=== PATIENT | female | born 1950 | race Caucasian/White ===

== ENCOUNTER 2019-10-06 07:32 | Outpatient (RCR) | payer MEDICARE, SELFPAY | END 2019-10-28 23:59 | disposition home or self-care (01) | LOC: SPT 07:32 | PROVIDERS: Family Provider Nurse Practitioner Family; PCP Nurse Practitioner Family; Referring Provider Nurse Practitioner Family; Visit Provider Nurse Practitioner Family | DX: R26.81 Unsteadiness on feet (principal); R29.6 Repeated falls | CPT/HCPCS: 97161 ==

== ENCOUNTER 2019-10-29 06:00 | Outpatient (RCR) | payer MEDICARE, SELFPAY | END 2019-10-29 23:00 | disposition home or self-care (01) | LOC: SPT 06:00 | PROVIDERS: Family Provider Nurse Practitioner Family; PCP Nurse Practitioner Family; Referring Provider Nurse Practitioner Family; Visit Provider Nurse Practitioner Family | DX: R26.81 Unsteadiness on feet (principal); R29.6 Repeated falls ==

== ENCOUNTER 2019-11-14 10:03 | Outpatient (CLI) | payer MEDICARE, SELFPAY ==
[2019-11-14 10:35] LABS: Basophils # 0.1 10^3/uL (0.0-0.1); Basophils % 0.8 %; Eosinophils # 0.1 10^3/uL (0.0-0.8); Eosinophils % 1.4 %; Hematocrit 43.6 % (37.0-47.0); Hemoglobin 13.9 g/dL (11.5-15.3); Lymphocytes # 2.3 10^3/uL (0.8-4.8); Lymphocytes % 31.6 %; Mean Corpuscular HGB Conc 31.9 g/dL (30.0-36.0); Mean Corpuscular Hemoglobin 28.3 pg (28.0-34.0); Mean Corpuscular Volume 88.8 fL (81-99); Mean Platelet Volume 10.1 fL (7.4-10.4); Monocytes # 0.6 10^3/uL (0.2-0.9); Monocytes % 7.9 %; Neutrophils # 4.1 10^3/uL (1.8-7.7); Neutrophils % 57.6 %; Nucleated Red Blood Cells % 0 %; Platelet Count 259 10^3/cmm (130-400); Red Blood Count 4.91 10^6/uL (4.1-5.3); Red Cell Distribution Width 12.9 % (12.1-15.1); White Blood Count 7.2 10^3/uL (4.0-10.0)
[2019-11-14 10:54] LABS: Alanine Aminotransferase 12 U/L (0-33); Albumin Level 3.7 g/dL (3.5-5.2); Alkaline Phosphatase 131 IU/L (35-105); Aspartate Amino Transferase 17 U/L (0-32); Blood Urea Nitrogen 14 mg/dL (8-23); Calcium 9.6 mg/dL (8.5-10.5); Carbon Dioxide 28 mmol/L (22-29); Chloride 101 mmol/L (98-107); Ferritin 467 ng/mL (15-150); Globulin 3.7 g/dL (1.3-4.6); Glomerular Filtration Rate 83.5 mL/min (90-130); Glucose 117 mg/dL (65-115); Iron 125 ug/dL (37-145); Percent Saturation 54.8 % (20-50); Sodium 139 mmol/L (136-145); Total Bilirubin 0.4 mg/dL (0.15-1.2); Total Iron Binding Capacity 228 mcg/dl; Total Protein 7.4 g/dL (6.6-8.7); Unsaturated Iron Binding 103 ug/dL (112-347)
[2019-11-14 11:04] LABS: Thyroid Stimulating Hormone 8.56 uIU/mL (0.27-4.20)
[2019-11-14 11:20] LABS: Erythrocyte Sedimentation Rate 18 mm/hr (0-15)
--- NOTE | 2019-11-14 12:19 | ONC FU_ITS ---
Dr. Resendez Patient Follow-Up Note Patient: Steffanie Angelo Unit #: [id number]: 1950 Dicatated By: Hal Resendez M.D.Date of Visit:Nov 14, 2019 Onc Med Follow-up/Prog Note Chief Complaint: Anemia. History of Present Illness: This is a 69 year-old woman with recurrent iron deficiency anemia. She has a complex medical history including diabetes, coronary artery disease, and hypothyroidism. 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 She has undergone multiple surgeries, and she is followed by Dr. Hong in the [place], [place]. She also has a history of cervical dysplasia, for which she is followed by Dr. White in [place], [place]. She was known to have an iron deficiency anemia since at least January of 2014 when her hemoglobin was 9.3 g/dL, ferritin 16.8, MCV 75. She reported frequent hematuria. On 10/09/2014 she was admitted to [facility] with syncopal episode and hypotension. Her hemoglobin measured 8.1 g/dL, MCV further dropped to 61, ferritin 6.9. Aspirin was placed on hold. She received one unit of packed red blood cell transfusion. She was first seen by Dr. Barrientos on 10/13/14. Her hemoglobin was 8.1 g with ESR 56. She denied clinically evident bleeding, except occasional hematuria. She had an intermittent left periumbilical pain. She had chronic fatigue and dyspnea on exertion. With IV iron replacement, her ferritin increased to 230, but iron saturation was 10%, and her hemoglobin recovered to 9.8 g/dL only. Hemoccult stool negative x3. A restaging CT of the chest abdomen and pelvis on 10/23/2014 revealed hiatal hernia, increased lymph node in the left axilla with a normal fatty hilum, and a right adnexal dermoid versus teratoma, which was stable. There was no organomegaly. Further workup included endoscopy and colonoscopy on 11/02/2014. It revealed hiatal hernia, gastritis, and diverticulosis. Urinalysis had persistent microscopic hematuria, cystoscopy unrevealing in June [address] Palomo. Bone marrow biopsy on 11/01/2014 showed 40-50% cellularity with that limited dyspoiesis of RBC precursors. There was adequate iron storage storage with ring sideroblasts of less than 5%. Cytogenetics and flow cytometry was unremarkable. FISH panel for MDS was normal. She intermittently required IV iron supplementation. With the treatment of left elbow osteomyelitis on doxycycline, the hemoglobin recovered to 12 g/dL on 12/05/2014. 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 She was then seen by infectious diseases specialist, completed a course of antibiotics in April 2015. Her last injections of IV iron was in May 2015. Bone scan in October 2015 revealed persistent osteomyelitis in the left elbow. She required debridement surgery on 01/11/2016 followed by chronic vancomycin therapy IV for MRSA. Unfortunately patient came off her omeprazole therapy for chronic gastritis. In early January 2016 she presented to the hospital with upper GI bleed, gastritis by endoscopy. She required 4 units of PRBC transfusion, omeprazole and Carafate therapy was restarted. She had repeat left elbow surgery on 03/14/2016. She was given parenteral iron replacement with Injectafer in November 2015 and again in February 2016. I had seen her for a follow-up visit in April 2016. Her hemoglobin was adequate at 12.8 g with transferrin saturation 30% and serum ferritin elevated at 754 ng/mL. At that point I had recommended that she just continue her regular follow-up with Myrna Tovar. INTERIM HISTORY: She had subsequently been followed by Dr. Roach for the anemia, and she did receive 2 additional infusions of Injectafer in November 2016. As of September 2018 she had become moderately anemic again with hemoglobin 9.4 g. She eventually did receive additional parenteral iron replacement with 3 infusions of Injectafer between 03/16/2019 and 03/30/2019. As of her followup visit on 05/11/2019 her hemoglobin was normal at 13.6 g. She is seen for a scheduled visit. She has been feeling pretty good generally. She says could be better, though it is better now than it had been. She is doing light work. ECOG score is 1. She has good appetite. She has not had fever. She does have hot flashes and sweating. She complains that she has bad sinus congestion, and she is wondering if she can get her sinuses drained. She also has had pain on the right side of her throat, and she also feels a knot there. She has shortness of breath with activity. She is on CPAP at night. She does not complain of cough. She sometimes has pain in her upper mid chest. She has acid reflux, and she occasionally has nausea. Bowel function has been okay. She has some urgency with urination, but no incontinence. She was treated for gout in her left ankle, and she then developed pain in her left knee. It was treated with a steroid shot. She has chronic pain in her left arm. She also has fibromyalgia pain in her shoulders. She complains of having headaches and dizziness. She has numbness/tingling in her left arm. Medications: Atenolol 1 (25 mg) Tablet Oral daily, Atorvastatin Calcium 1 (80 mg) Tablet Oral daily, Citalopram Hydrobromide 1 (40 mg) Tablet Oral daily, Doxycycline Hyclate Tablet Oral, Gabapentin 1 Tablet (of 300 mg) Oral four times a day, Hydrocodone-Acetaminophen 1 - 2 (7.5-325 mg) Tablet Oral q 4 to 6 hours PRN, Levothyroxine Sodium 1 Tablet (of 100 mcg) Oral daily, Plavix 1 (75 mg) Tablet Oral daily, Probiotic 1 Capsule Oral daily, Protonix 1 Tablet (of 20 mg) Tablet, enteric coated Oral b.i.d., Vitamin B-12 1 Tablet (of 2500 mcg) Oral daily Allergies: Dilautid, Keflex, Morphine, N-Saids, PCN, and Sulfa Drugs. Review of Systems: Constitutional - Her energy has gotten better. She does light work and baby sits her grandchildren. Her appetite is good and her weight is down 4 pounds since her last visit. No fever or chills. She has hot flashes and sweating. ECOG score is 1, ENMT - She has bad sinus congestion. No mouth sores. She has been having pain and a knot on the right side of her throat. She has no difficulty swallowing, Hematologic/Lymphatic - She bruises easily, Respiratory - She has shortness of breath with activity. She wears a CPAP at night. No cough. No pleuritic pain or hemoptysis, Cardiovascular - She has pain in the center of her upper chest. No palpitations, Gastrointestinal - She has occasional nausea. No vomiting. She has heartburn and acid reflux. No diarrhea or constipation. No blood in the stool or black stools, Genitourinary (F) - No dysuria or hematuria. No urinary frequency. She has urgency, but no incontinence, Musculoskeletal - She was treated for gout in the left ankle. She then developed pain in her left knee and ankle. She was treated with a steroid shot. She also has pain chronic pain in her left arm, and she has fibromyalgia pain in her shoulders, Integumentary - No skin complications, Neurologic - No headache. She has occasional dizziness. She has numbness and tingling in her left hand, Psychiatric - She has anxiety. She sleeps okay at night as long as she takes her medication. Vital Signs: Performed on Nov 14, 2019 11:26 Height - 64.00 in Weight - 173.8 lbs (LOW) BSA - 1.84 sq.m BMI - 29.83 Temperature - 98.1 F (LOW) Pulse - 86 /min Respiration - 18 /min BP - 136/81 mm(hg) O2 Sat - 98 % Pain - 4 Physical Examination: Constitutional - She looks pretty good generally, Eyes - Sclerae nonicteric. Conjunctivae clear, ENMT - No lesions noted in the oral cavity, Hematologic/Lymphatic - No cervical, clavicular, or axillary adenopathy, Respiratory - Lungs sound clear with good air movement bilaterally, Cardiovascular - Heart rhythm is regular. There is no murmur, gallop, or rub noted, Abdomen - Soft. Liver and spleen are not enlarged. There is no abdominal mass or ascites noted and there is no inguinal adenopathy, Extremities - No edema, Neurologic - No focal neurologic deficits noted. Lab/Imaging: Test performed on Nov 14, 2019 10:18 Ferritin 467 ng/mL Iron 125 ug/dL Sodium 139 mmol/L TSH 8.56 uIU/mL Potassium 4.0 mmol/L Chloride 101 mmol/L CO2 28 mmol/L UIBC 103 ug/dL Anion Gap 14.0 BUN 14 mg/dL Creatinine 0.7 mg/dL Cr Clearance (Est) 97.06 mL/min eGFR 83.5 mL/min Glucose 117 mg/dL Calcium 9.6 mg/dL Protein, Total 7.4 g/dL Albumin 3.7 g/dL Globulin 3.7 g/dL Bilirubin, Total 0.4 mg/dL ALT (SGPT) 12 U/L AST (SGOT) 17 U/L Alkaline Phosphatase 131 IU/L ESR (Sed Rate) 18 mm/hr WBC 7.2 10 3/uL RBC 4.91 10 6/uL HGB 13.9 g/dL HCT 43.6 % MCV 88.8 fL MCH 28.3 pg MCHC 31.9 g/dL RDW 12.9 % Platelet Count 259 10 3/cmm MPV 10.1 fL Neutrophils 4.1 10 3/uL Lymphocytes 2.3 10 3/uL Monocytes 0.6 10 3/uL Eosinophils 0.1 10 3/uL Basophils 0.1 10 3/uL Neutrophil % 57.6 % Lymphocyte % 31.6 % Monocyte % 7.9 % Eosinophil % 1.4 % Basophils % 0.8 % Impression: 1. Patient with recurrent iron deficiency anemia. She previously had documented GI blood loss. It is uncertain to what extent she also may have inadequate oral iron absorption. Her anemia has been responsive to parenteral iron replacement with Injectafer. 2. She has chronic/recurrent osteomyelitis of the left ulna, for which she has undergone multiple surgical procedures and extensive antibiotic therapy. Her other medical illnesses include: 3. Hypertension. 4. Hyperlipidemia. 5. Type II diabetes. 6. Coronary artery disease. 7. GERD. 8. Hypothyroidism. 9. Chronic anxiety. She completed another course of parenteral iron replacement with 3 infusions of Injectafer between 03/16/2019 and 03/30/2019. She tolerated it well. She had a good clinical response. She then had another surgery on her left elbow 3 weeks ago. That procedure apparently went well. The day prior to that she had undergone biopsy of the skin lesion on her left ankle. It apparently was found to be a severely dysplastic nevus, and she was scheduled to have it excised. She had then developed acute pain and swelling in the left ankle. Tthe clinical picture appeared most consistent with acute gout, and it improved on steroid therapy. She had subsequently developed pain in her left knee, that was treated with a steroid injection. In the meantime, she is also reduced her dosage of levothyroxine, and her TSH level has now become mildly elevated. Her hemoglobin, though, has remained stable at 13.9 g. Her transferrin saturation and serum ferritin now are both slightly elevated. Plan: She will remain on observation/expectant management for the iron deficiency. She will increase levothyroxine from 100 to 125 mcg daily. She will increase her Protonix from 20 to 40 mg daily. I will arrange for her to see Dr. Daigle in regard to her sinus and throat symptoms. I will see her again in 3 months. Signed By: Hal Resendez M.D. <<Signature on File>>
== END 2019-11-14 10:04 | disposition home or self-care (01) ==
LOC: ONCMED 10:08
PROVIDERS: Family Provider Nurse Practitioner Family; PCP Nurse Practitioner Family; Visit Provider Internal Medicine Medical Oncology
DX: D50.9 Iron deficiency anemia, unspecified (principal); M10.072 Idiopathic gout, left ankle and foot; I25.10 Atherosclerotic heart disease of native coronary artery without angina pectoris; E03.9 Hypothyroidism, unspecified; E11.9 Type 2 diabetes mellitus without complications; G89.29 Other chronic pain; M86.632 Other chronic osteomyelitis, left radius and ulna; M79.7 Fibromyalgia; F41.9 Anxiety disorder, unspecified; Z79.891 Long term (current) use of opiate analgesic; Z79.02 Long term (current) use of antithrombotics/antiplatelets; Z86.14 Personal history of Methicillin resistant Staphylococcus aureus infection
CPT/HCPCS: 80053; 82728; 83540; 83550; 84443; 85025; 85651; 86140; 99214

== ENCOUNTER 2019-12-14 15:13 | Outpatient (CLI) | payer MEDICARE, SELFPAY ==
--- NOTE | 2019-12-14 15:22 | XR_ITS ---
WS: [id number] XR lumbar spine f/e only [id number] REASON FOR EXAM: LOW BACK PAIN FINDINGS: Compression fracture L2. Approximately one fourth of vertebral body collapse. The remaining disc spaces and vertebral bodies are normal. Suspect flexion-extension views show normal motion. XR/XR lumbar spine f/e only [id number] IMPRESSION: Compression fracture L2.
== END 2019-12-14 15:14 | disposition home or self-care (01) ==
LOC: RAD 15:20
PROVIDERS: Family Provider Nurse Practitioner Family; PCP Nurse Practitioner Family; Visit Provider Anesthesiology Pain Medicine
DX: M48.56XA Collapsed vertebra, not elsewhere classified, lumbar region, initial encounter for fracture (principal); M54.5 Low back pain
CPT/HCPCS: 72120

== ENCOUNTER 2019-12-21 12:50 | Outpatient (CLI) | payer MEDICARE, SELFPAY ==
--- NOTE | 2019-12-21 12:58 | CT_ITS ---
WS: [id number] CT NECK WITH CONTRAST HISTORY: CHRONIC SINUSITIS, CERVICALGIA TECHNIQUE: Contiguous 5 mm axial images are performed through the neck with intravenous contrast. Sag ittal and coronal reformats are also submitted. All CT scans at [facility] use at least o ne of these dose optimization techniques: automated exposure control; mA and/or kV adjustment per pat ient size (includes targeted exams where dose is matched to clinical indication); or iterative recons truction. CONTRAST: CONTRAST: Omnipaque 300; 95 mL IV. DLP: 2310.01 mGycm COMPARISON: 05/25/2006 Nasopharynx, oropharynx, hypopharynx and larynx are unremarkable. No soft tissue masses or abnormal e nhancement. Torus tubarius and fossa of Rosenmuller and parapharyngeal fat are normal. No significant lymphadenopathy is identified. RIGHT thyroid nodule measures 7 mm. LEFT thyroid gland is not identified and may been surgically trudy leo. Parotid and submandibular glands are normal. No osteoblastic or osteolytic bone disease. Facet joint arthritis and osteophytes throughout the cerv ical spine. Ectatic LEFT jugular vein is similar to prior studies. Visualized portions of the skull base demonstrate no abnormalities. Orbits and globes are within norm al limits. No soft tissue masses. Visualized paranasal sinuses and mastoid air cells are normal. Lung apices are clear. Small amount of calcified plaque in the carotid bifurcations. CT/CT neck w con* [id number] IMPRESSION: 1. No neck mass or adenopathy. 2. Mild atherosclerosis carotid bifurcations.
[2019-12-21] MEDS: iohexol 300 mg/mL 100 mL Btl IV (13:28)
== END 2019-12-21 12:51 | disposition home or self-care (01) ==
LOC: RADWPI 12:54
PROVIDERS: Family Provider Nurse Practitioner Family; PCP Nurse Practitioner Family; Visit Provider Specialist
DX: I65.23 Occlusion and stenosis of bilateral carotid arteries (principal); J32.8 Other chronic sinusitis; M54.2 Cervicalgia
CPT/HCPCS: 70491; Q9967

== ENCOUNTER 2020-02-07 13:55 | Outpatient (CLI) | payer MEDICARE, SELFPAY ==
--- NOTE | 2020-02-07 14:04 | USCV_ITS ---
Steffanie Angelo Age: 69 Gender: F : 1950 Exam Date: 02/07/2020 14:13 Ordering Phys: Guy Stewart APN Technologist: Jacoby Dsouza Exam Location: [facility] [place] Indication: SWELLING HISTORY: Lower extremity swelling. PROCEDURES: Venous duplex imaging was performed in only the right lower extremity. The following venous structures were evaluated: common femoral vein, profunda vein, proximal portion of the greater saphenous vein, superficial femoral vein, and the popliteal vein. In addition, the posterior tibial and peroneal trunk were evaluated. Serial compression, augmentation maneuvers, and spectral Doppler flow evaluation were performed. FINDINGS: Normal 2-D Doppler and augmentation and compressibility throughout the lower extremity venous structures. Additional imaging through the proximal calf veins also reveals no thrombus. Limited evaluation of the greater saphenous vein is patent with no thrombus. There is a right lower extremity Hassan's cyst noted, 4.0 x 2.9 cm. CONCLUSIONS No DVT right lower extremity. Right popliteal fossa Hassan's cyst. Dr. Milagro Hernandez DO (Electronically Signed) Final Date: 07 Feb 2020 15:37 S
== END 2020-02-07 13:56 | disposition home or self-care (01) ==
LOC: RAD 13:58
PROVIDERS: Family Provider Nurse Practitioner Family; PCP Nurse Practitioner Family; Visit Provider Nurse Practitioner Family
DX: M79.604 Pain in right leg (principal); M71.21 Synovial cyst of popliteal space [Baker], right knee
CPT/HCPCS: 93971

== ENCOUNTER 2020-02-28 08:36 | Outpatient (CLI) | payer MEDICARE, SELFPAY ==
[2020-02-28 09:40] LABS: Basophils # 0.1 10^3/uL (0.0-0.1); Basophils % 0.9 %; Eosinophils # 0.1 10^3/uL (0.0-0.8); Eosinophils % 1.6 %; Hematocrit 43.6 % (37.0-47.0); Hemoglobin 13.6 g/dL (11.5-15.3); Lymphocytes # 2.1 10^3/uL (0.8-4.8); Lymphocytes % 26.3 %; Mean Corpuscular HGB Conc 31.2 g/dL (30.0-36.0); Mean Corpuscular Hemoglobin 28.8 pg (28.0-34.0); Mean Corpuscular Volume 92.4 fL (81-99); Mean Platelet Volume 10.1 fL (7.4-10.4); Monocytes # 0.7 10^3/uL (0.2-0.9); Monocytes % 8.6 %; Neutrophils % 62.3 %; Nucleated Red Blood Cells % 0 %; Platelet Count 230 10^3/cmm (130-400); Red Blood Count 4.72 10^6/uL (4.1-5.3); Red Cell Distribution Width 12.9 % (12.1-15.1)
[2020-02-28 10:06] LABS: Alanine Aminotransferase 18 U/L (0-33); Albumin Level 3.9 g/dL (3.5-5.2); Alkaline Phosphatase 104 IU/L (35-105); Anion Gap 16.3 (5-19); Aspartate Amino Transferase 21 U/L (0-32); Blood Urea Nitrogen 15 mg/dL (8-23); Calcium 9.7 mg/dL (8.5-10.5); Carbon Dioxide 26 mmol/L (22-29); Chloride 103 mmol/L (98-107); Ferritin 568 ng/mL (15-150); Globulin 3.1 g/dL (1.3-4.6); Glomerular Filtration Rate 99.7 mL/min (90-130); Glucose 113 mg/dL (65-115); Iron 85 ug/dL (37-145); Osmolality Calculated 289 mOsm/kg (285-295); Percent Saturation 42.5 % (20-50); Potassium 4.3 mmol/L (3.5-5.1); Sodium 141 mmol/L (136-145); Thyroid Stimulating Hormone 1.63 uIU/mL (0.27-4.20); Total Bilirubin 0.4 mg/dL (0.15-1.2); Total Iron Binding Capacity 200 mcg/dl; Unsaturated Iron Binding 115 ug/dL (112-347)
[2020-02-28 10:51] LABS: Free T4 Free Thyroxine 1.45 ng/dL (0.82-1.77)
--- NOTE | 2020-03-03 10:29 | ONC FU_ITS ---
Dr. Resendez Patient Follow-Up Note Patient: Steffanie Angelo Unit #: [id number]: 1950 Dicatated By: Hal Resendez M.D.Date of Visit:Feb 28, 2020 Onc Med Follow-up/Prog Note Chief Complaint: Anemia. History of Present Illness: This is a 69 year-old woman with recurrent iron deficiency anemia. She has a complex medical history including diabetes, coronary artery disease, and hypothyroidism. 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 She has undergone multiple surgeries, and she is followed by Dr. Hong in the [place], [place]. She also has a history of cervical dysplasia, for which she is followed by Dr. White in [place], [place]. She was known to have an iron deficiency anemia since at least January of 2014 when her hemoglobin was 9.3 g/dL, ferritin 16.8, MCV 75. She reported frequent hematuria. On 10/09/2014 she was admitted to [facility] with syncopal episode and hypotension. Her hemoglobin measured 8.1 g/dL, MCV further dropped to 61, ferritin 6.9. Aspirin was placed on hold. She received one unit of packed red blood cell transfusion. She was first seen by Dr. Barrientos on 10/13/14. Her hemoglobin was 8.1 g with ESR 56. She denied clinically evident bleeding, except occasional hematuria. She had an intermittent left periumbilical pain. She had chronic fatigue and dyspnea on exertion. With IV iron replacement, her ferritin increased to 230, but iron saturation was 10%, and her hemoglobin recovered to 9.8 g/dL only. Hemoccult stool negative x3. A restaging CT of the chest abdomen and pelvis on 10/23/2014 revealed hiatal hernia, increased lymph node in the left axilla with a normal fatty hilum, and a right adnexal dermoid versus teratoma, which was stable. There was no organomegaly. Further workup included endoscopy and colonoscopy on 11/02/2014. It revealed hiatal hernia, gastritis, and diverticulosis. Urinalysis had persistent microscopic hematuria, cystoscopy unrevealing in June [address] Palomo. Bone marrow biopsy on 11/01/2014 showed 40-50% cellularity with that limited dyspoiesis of RBC precursors. There was adequate iron storage storage with ring sideroblasts of less than 5%. Cytogenetics and flow cytometry was unremarkable. FISH panel for MDS was normal. She intermittently required IV iron supplementation. With the treatment of left elbow osteomyelitis on doxycycline, the hemoglobin recovered to 12 g/dL on 12/05/2014. 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 She was then seen by infectious diseases specialist, completed a course of antibiotics in April 2015. Her last injections of IV iron was in May 2015. Bone scan in October 2015 revealed persistent osteomyelitis in the left elbow. She required debridement surgery on 01/11/2016 followed by chronic vancomycin therapy IV for MRSA. Unfortunately patient came off her omeprazole therapy for chronic gastritis. In early January 2016 she presented to the hospital with upper GI bleed, gastritis by endoscopy. She required 4 units of PRBC transfusion, omeprazole and Carafate therapy was restarted. She had repeat left elbow surgery on 03/14/2016. She was given parenteral iron replacement with Injectafer in November 2015 and again in February 2016. I had seen her for a follow-up visit in April 2016. Her hemoglobin was adequate at 12.8 g with transferrin saturation 30% and serum ferritin elevated at 754 ng/mL. At that point I had recommended that she just continue her regular follow-up with Myrna Tovar. INTERIM HISTORY: She had subsequently been followed by Dr. Roach for the anemia, and she did receive 2 additional infusions of Injectafer in November 2016. As of September 2018 she had become moderately anemic again with hemoglobin 9.4 g. She eventually did receive additional parenteral iron replacement with 3 infusions of Injectafer between 03/16/2019 and 03/30/2019. As of her followup visit on 05/11/2019 her hemoglobin was normal at 13.6 g. She is seen for a scheduled visit. Overall she has been doing better. She has had no recurrence of the infection in her left arm/elbow. Her energy is still just so-so, but she is doing light work. ECOG score is 1. She has good appetite. She has not had fever. She does have some hot flashes and sweating. She has some shortness of breath with activity. She does not complain of cough. She has occasional sharp pain in her upper chest. She has had one recent bout of nausea. Her acid reflux is adequately managed with medication. Her bowel function has been better lately. She does report having urinary frequency and nocturia. She also has joint pain in her shoulders and knees. She has had some headache following her recent injury. She sometimes has dizziness. She has no focal neurologic symptoms. Medications: Atenolol 1 (25 mg) Tablet Oral daily, Atorvastatin Calcium 1 (80 mg) Tablet Oral daily, Citalopram Hydrobromide 1 (40 mg) Tablet Oral daily, Doxycycline Hyclate 1 Tablet (of 100 mg) Oral b.i.d., Escitalopram Oxalate 1 Tablet (of 20 mg) Oral daily, Gabapentin 1 Tablet (of 300 mg) Oral four times a day, Hydrocodone-Acetaminophen 1 - 2 (10-325 mg) Tablet Oral q 4 to 6 hours PRN, Levothyroxine Sodium 1 Tablet (of 125 mcg) Oral daily, Plavix 1 (75 mg) Tablet Oral daily, Protonix 1 Tablet (of 20 mg) Tablet, enteric coated Oral b.i.d., Vitamin B-12 1 Tablet (of 2500 mcg) Oral daily Allergies: Dilautid, Keflex, Morphine, N-Saids, PCN, and Sulfa Drugs. Review of Systems: Constitutional - She generally feels good. Her energy varies day to day. She does some light work around the house. Her appetite is good and weight is stable. No fever or chills or hot flashes. She has night sweats. ECOG score is 1, ENMT - She has sinus congestion/drainage. No mouth sores. No sore throat or difficulty swallowing. She has facial bruising from a recent accident, Hematologic/Lymphatic - She bruises easily, Respiratory - She has shortness of breat with activity. No cough. No pleuritic pain or hemoptysis, Cardiovascular - She has intermittent anginal pain. This has occured a few times. Nothing in particular seems to bring it on. No palpitations, Gastrointestinal - She has had a few episodes of nausea. No vomiting. No heartburn or acid reflux. No diarrhea or constipation. No blood in the stool or black stools, Genitourinary (F) - No dysuria or hematuria. She has urinary frequency during the day and at night. No urgency or incontinence, Musculoskeletal - She has generalized arthritis pain. She continues to have pain in her left arm. Her pain is adequately managed with hydrocodone-APAP 10-325, Integumentary - No skin complications, Neurologic - No headache or dizziness. No numbness or tingling. No other focal neurologic symptoms, Psychiatric - Her anxiety and sleep is well managed with citalopram. No depression. Vital Signs: Performed on Feb 28, 2020 10:10 Height - 64.00 in Weight - 174.8 lbs (HIGH) BSA - 1.85 sq.m BMI - 30.00 Temperature - 97.6 F (LOW) Pulse - 65 /min Respiration - 18 /min BP - 132/87 mm(hg) O2 Sat - 98 % Pain - 4 Physical Examination: Constitutional - She looks pretty good generally. There is resolving ecchymosis over the bridge of her nose, Eyes - Sclerae nonicteric. Conjunctivae clear, ENMT - No lesions noted in the oral cavity, Hematologic/Lymphatic - No cervical, clavicular, or axillary adenopathy, Respiratory - Lungs sound clear with some decrease in air movement bilaterally, Cardiovascular - Heart rhythm is regular. There is no murmur, gallop, or rub noted, Abdomen - Soft. Liver and spleen are not enlarged. There is no abdominal mass or ascites noted and there is no inguinal adenopathy, Extremities - No edema, Neurologic - No focal neurologic deficits noted. Lab/Imaging: Test performed on Feb 28, 2020 09:05 Ferritin 568 ng/mL Iron 85 mcg/dL Sodium 141 mmol/L T4, Free 1.45 ng/dL TSH 1.63 uIU/mL Iron Binding Capacity (TIBC) 200 mcg/dl Potassium 4.3 mmol/L % Iron Saturation 42.5 % Chloride 103 mmol/L CO2 26 mmol/L UIBC 115 mcg/dL Anion Gap 16.3 BUN 15 mg/dL Creatinine 0.6 mg/dL Cr Clearance (Est) 113.89 mL/min eGFR 99.7 mL/min Glucose 113 mg/dL Calcium 9.7 mg/dL Protein, Total 7.0 g/dL Albumin 3.9 g/dL Globulin 3.1 g/dL Bilirubin, Total 0.4 mg/dL ALT (SGPT) 18 U/L AST (SGOT) 21 U/L Alkaline Phosphatase 104 IU/L WBC 8.0 10 3/uL RBC 4.72 10 6/uL HGB 13.6 g/dL HCT 43.6 % MCV 92.4 fL MCH 28.8 pg MCHC 31.2 g/dL RDW 12.9 % Platelet Count 230 10 3/cmm MPV 10.1 fL Neutrophils 5.0 10 3/uL Lymphocytes 2.1 10 3/uL Monocytes 0.7 10 3/uL Eosinophils 0.1 10 3/uL Basophils 0.1 10 3/uL Neutrophil % 62.3 % Lymphocyte % 26.3 % Monocyte % 8.6 % Eosinophil % 1.6 % Basophils % 0.9 % Impression: 1. Patient with recurrent iron deficiency anemia. She previously had documented GI blood loss. It is uncertain to what extent she also may have inadequate oral iron absorption. Her anemia has been responsive to parenteral iron replacement with Injectafer. 2. She has chronic/recurrent osteomyelitis of the left ulna, for which she has undergone multiple surgical procedures and extensive antibiotic therapy. Her other medical illnesses include: 3. Hypertension. 4. Hyperlipidemia. 5. Type II diabetes. 6. Coronary artery disease. 7. GERD. 8. Hypothyroidism. 9. Chronic anxiety. She completed another course of parenteral iron replacement with 3 infusions of Injectafer between 03/16/2019 and 03/30/2019. She tolerated it well. She had a good clinical response. She then had another surgery on her left elbow in September 2019. That procedure apparently went well. The day prior to that she had undergone biopsy of the skin lesion on her left ankle. It apparently was found to be a severely dysplastic nevus, and she was scheduled to have it excised. During subsequent follow-up her overall clinical status has improved. She has had no further recurrence of infection in the left elbow/arm, and there has been no evidence of recurrence of the iron deficiency. Plan: She will remain on observation/expectant management for the iron deficiency. She will continue regular follow-up with Teresita Tovar. I will see her again only as needed. Signed By: Hal Resendez M.D. <<Signature on File>>
== END 2020-02-28 08:37 | disposition home or self-care (01) ==
LOC: ONCMED 08:38
PROVIDERS: Family Provider Nurse Practitioner Family; PCP Nurse Practitioner Family; Visit Provider Internal Medicine Medical Oncology
DX: D50.9 Iron deficiency anemia, unspecified (principal); D23.72 Other benign neoplasm of skin of left lower limb, including hip; I10 Essential (primary) hypertension; E78.5 Hyperlipidemia, unspecified; E11.9 Type 2 diabetes mellitus without complications; I25.10 Atherosclerotic heart disease of native coronary artery without angina pectoris; K21.9 Gastro-esophageal reflux disease without esophagitis; E03.9 Hypothyroidism, unspecified; F41.9 Anxiety disorder, unspecified
CPT/HCPCS: 80053; 82728; 83540; 83550; 84439; 84443; 85025; G0463

== ENCOUNTER 2020-04-22 15:38 | Inpatient (IN) | payer MEDICARE, SELFPAY ==
[2020-04-22] VITALS (13 sets, daily range): BP systolic 96–136; BP diastolic 59–75; PULSE 78–99; RESP 12–20; TEMP 36.8–37.7; O2SAT 94–100; BMI 29.2
--- NOTE | 2020-04-22 15:48 | XRR_ITS ---
PROCEDURE INFORMATION: Exam: XR Left Hip with Pelvis when Performed Exam date and time: 04/22/2020 3:49 PM Age: 69 years old Clinical indication: Injury or trauma; Fall; Initial encounter; Blunt trauma (contusions or hematomas); Left; Hip; Additional info: Fall, injury TECHNIQUE: Imaging protocol: XR Left hip with pelvis when performed. Views: 2 or 3 views. COMPARISON: CT abdomen pelvis w con* [id number] 09/08/2016 9:27 PM FINDINGS: Bones/joints: There is what is either a intertrochanteric fracture of the proximal left femur, or low cervical fracture with some varus angulation. Soft tissues: There are injection granulomas in the left gluteal region. XR/XR hip LT 2-3V wo/w pel* [id number] IMPRESSION: Proximal left femoral fracture.
--- NOTE | 2020-04-22 15:53 | XRR_ITS ---
PROCEDURE INFORMATION: Exam: XR Chest, 1 View Exam date and time: 04/22/2020 3:55 PM Age: 69 years old Clinical indication: Injury or trauma; Fall; Initial encounter; Blunt trauma (contusions or hematomas); Additional info: Fall/injury TECHNIQUE: Imaging protocol: XR of the chest Views: 1 view. COMPARISON: CR Chest 2 views* [id number] 09/10/2018 1:36 PM FINDINGS: Lungs: There is some partial atelectasis in the lingula. Visualized portions of the right lung are clear. Pleural space: Unremarkable. No pleural effusion. No pneumothorax. Heart/Mediastinum: There is mild cardiomegaly. Bones/joints: Unremarkable. Other findings: There is a large hiatus hernia. XR/XR chest 1V portable [id number] IMPRESSION: 1. Large hiatus hernia. 2. Mild atelectasis.
--- NOTE | 2020-04-22 15:53 | ECG_ITS ---
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 Measurements Intervals [place] Rate: 89 P: 57 GA: 261 QRS: 13 QRSD: 76 T: 49 QT: 349 QTc: 426 Interpretive Statements SINUS RHYTHM WITH FIRST DEGREE AV BLOCK Compared to ECG 12/09/2016 17:18:05 First degree AV block now present Electronically Signed On 04-23-2020 21:29:43 CDT by Lizzie Rivera M.D. [id number]
--- NOTE | 2020-04-22 15:53 | CTR_ITS ---
PROCEDURE INFORMATION: Exam: CT Head Without Contrast Exam date and time: 04/22/2020 4:11 PM Age: 69 years old Clinical indication: Injury or trauma; Fall; Initial encounter; Blunt trauma (contusions or hematomas); Without loss of consciousness; Patient HX: Tripped on loose carpet while walking - denies loc; Additional info: Fall/injury TECHNIQUE: Imaging protocol: Computed tomography of the head without contrast. Radiation optimization: All CT scans at this facility use at least one of these dose optimization techniques: automated exposure control; mA and/or kV adjustment per patient size (includes targeted exams where dose is matched to clinical indication); or iterative reconstruction. COMPARISON: No relevant prior studies available. RADIATION DOSE METRICS: Total DLP (mGy-cm): 836.09 FINDINGS: Brain: There is physiologic calcification in the basal ganglia regions. There is no intracranial mass, hemorrhage or edema. There is mild cortical atrophy. Ventricles: Normal. No ventriculomegaly. Bones/joints: There is downward bulging of the floor of the right orbit which is not fully evaluated on this examination. This suggests a history of old healed right orbital floor fracture. Correlation with clinical history is suggested. No acute fracture is identified. Sinuses: Visualized sinuses are unremarkable. No fluid levels. Mastoid air cells: Visualized mastoid air cells are well aerated. Soft tissues: Unremarkable. CT/CT head wo con* [id number] IMPRESSION: No acute intracranial finding. Radiation Dose CTDIVOL = (mGy): DLP = 836.09 (mGy-cm)
[2020-04-22] MEDS: fentaNYL 50 mcg/mL INJ 2mL IVP ×4 (16:00→23:52)
[2020-04-22] MEDS: ondansetron 2 mg/ML SDV 2 mL 4 MG IVP (16:00)
[2020-04-22 16:22] LABS: Basophils # 0.1 10^3/uL (0.0-0.1); Basophils % 0.6 %; Eosinophils # 0.2 10^3/uL (0.0-0.8); Eosinophils % 1.2 %; Hematocrit 35.4 % (37.0-47.0); Lymphocytes % 15.7 %; Mean Corpuscular HGB Conc 31.1 g/dL (30.0-36.0); Mean Corpuscular Hemoglobin 29.2 pg (28.0-34.0); Mean Corpuscular Volume 93.9 fL (81-99); Mean Platelet Volume 9.6 fL (7.4-10.4); Monocytes # 1.2 10^3/uL (0.2-0.9); Neutrophils # 9.22 10^3/uL (1.8-7.7); Neutrophils % 72.6 %; Nucleated Red Blood Cells % 0 %; Platelet Count 202 10^3/cmm (130-400); Red Blood Count 3.77 10^6/uL (4.1-5.3); Red Cell Distribution Width 13.9 % (12.1-15.1); White Blood Count 12.7 10^3/uL (4.0-10.0)
[2020-04-22 16:30] LABS: INR 0.97 (0.8-1.2)
[2020-04-22 16:31] LABS: Partial Thromboplastin Time 27.7 SECONDS (23.9-36.7)
[2020-04-22 16:38] LABS: Alanine Aminotransferase 13 U/L (0-33); Albumin Level 3.2 g/dL (3.5-5.2); Alkaline Phosphatase 78 IU/L (35-105); Anion Gap 12.7 (5-19); Aspartate Amino Transferase 18 U/L (0-32); Blood Urea Nitrogen 24 mg/dL (8-23); Calcium 7.6 mg/dL (8.5-10.5); Carbon Dioxide 22 mmol/L (22-29); Chloride 105 mmol/L (98-107); Globulin 2.9 g/dL (1.3-4.6); Glomerular Filtration Rate 62.5 mL/min (90-130); Glucose 160 mg/dL (65-115); Osmolality Calculated 280 mOsm/kg (285-295); Potassium 4.7 mmol/L (3.5-5.1); Sodium 135 mmol/L (136-145); Total Bilirubin 0.3 mg/dL (0.15-1.2); Total Protein 6.1 g/dL (6.6-8.7)
--- NOTE | 2020-04-22 16:48 | W.ED.FALL ---
HPI - Fall General: Chief Complaint: Fall Stated Complaint: LEFT HIP PAIN Time Seen by Provider: 04/22/20 15:49 Source: patient and EMS Mode of arrival: EMS Limitations: no limitations History of Present Illness: HPI Narrative: Steffanie is a nice 69-year-old female who states that she tripped and fell at home landing on her left hip. She did hit her head but had no loss of consciousness. She denies any neck pain or injury. She denies any chest pain or injury. She states all of her pain is to her left hip. She is unable to stand up or bear weight. Patient denies any other complaints or concerns at this time. Patient has a noticeable deformity to her left leg. Associated symptoms-after fall: Denies abdominal pain, chest pain, confusion, difficulty walking, headache(s), hematuria, lightheadedness, neck pain or vertigo Review of Systems Const: Denies: fever(s), chills, body aches, fatigue, malaise or diaphoresis Eyes: Denies: change in vision, blurry vision, blind spots, photophobia, eye discharge or eye redness ENMT: Denies: throat pain, odynophagia, hoarseness, swelling of lips/tongue, oral sores, ear or mastoid pain, ear discharge, change in hearing or nasal discharge Card: Denies: chest pain, palpitations, irregular heart rhythm, edema, lightheadedness, syncope, pre-syncope, dyspnea on exertion or orthopnea Resp: Denies: dyspnea, productive cough, non-productive cough, wheezing, hemoptysis or chest congestion GI: Denies: abdominal pain, nausea, vomiting, hematemesis, coffee ground emesis, heartburn, diarrhea, constipation, GI cramping, hematochezia or melena : Denies: flank pain, dysuria, urinary frequency, urinary urgency or hematuria Musc: Reports: extremity pain and joint pain; Denies: neck pain, back pain, extremity swelling, joint swelling, joint redness, joint warmth or joint stiffness Skin/Breast: Denies: rash, pruritus, erythema, skin tenderness or jaundice Neuro: Denies: headache(s), numbness in extremities, weakness in extremities, sensory changes, lack of coordination, difficulty walking, dizziness, vertigo, confusion, Slurred speech present or seizure-like activity Oneil/Lymph: Denies: easy bruising, easy bleeding, petechiae, purpura or enlarged lymph nodes All/Imm: Denies: urticaria, throat swelling, tongue swelling, facial swelling or acute wheezing PFSH ED PFSH: Social History Smoking and tobacco status: former smoker Physical Exam Const: COMMON NORMALS: no acute distress, patient oriented x3, no limitations, healthy appearing and well nourished GENERAL APPEARANCE: cooperative, well kempt and well developed HENMT: COMMON NORMALS: normocephalic, atraumatic, external ears normal, EAC's normal and Normal external nose present HEAD & SCALP: normal to inspection, normocephalic and atraumatic FACE & SINUS: normal facial exam and face symmetric NOSE: Normal external nose present and Normal nares present EXTERNAL EAR: Yes external ears normal EXTERNAL AUDITORY CANAL: EAC's normal MOUTH: Normal oral and palatal mucosa present, lip normal and tongue normal Eye: COMMON NORMALS: Equal, round and reactive pupils present and conjunctivae normal GENERAL EYE: appearance normal, both eyes and all related structures ALIGNMENT: Yes alignment normal PERIORBITAL: periorbital findings normal EYELID: eyelids normal CONJUNCTIVA: Yes conjunctivae normal SCLERA: sclerae normal PUPIL: Yes Equal, round and reactive pupils present Neck/C-Spine: COMMON NORMALS: full ROM, no lymphadenopathy, supple, no meningeal signs and no JVD GENERAL: Yes normal visual inspection and Yes trachea midline Chest: COMMONS NORMALS: normal inspection of the chest and normal palpation of entire chest wall Resp: COMMON NORMALS: normal respiratory effort, No retractions and No use of accessory muscles EFFORT & INSPECTION: Yes able to speak in complete sentences and Yes symmetric chest movement AUSCULTATION: no crackles, no rales, no rhonchi and no wheezes Cardio: COMMON NORMALS: no JVD, regular rate, regular rhythm, S1 normal heart sound present and S2 normal heart sound present RATE: regular rate RHYTHM: regular rhythm HEART SOUNDS: S1 normal heart sound present, S2 normal heart sound present, no click, no gallops, no murmurs, no rubs and abnormal split S2 GI: COMMON NORMALS: Soft to palpation and No hepatosplenomegaly present PALPATION: Yes Soft to palpation, No Tenderness to palpation present (GI), No Guarding due to palpation present (GI), No Rigid due to palpation, Yes No hepatosplenomegaly present, No Hernia present, No Palpable mass present and No Pulsatile mass present : COMMON NORMALS: Yes no CVA tenderness BLADDER/KIDNEY EXAM: Yes no CVA tenderness EXTERNAL FEMALE EXAM: No Hernia present Back/Pelvis: COMMON NORMALS: no CVA tenderness, thoracic and lumbar spine normal to inspection, no thoracic nor lumbar tenderness and thoraco-lumbar ROM normal Extremity: NARRATIVE EXTREMITY EXAM: Musculoskeletal exam unremarkable except for left hip. Left leg is shortened and externally rotated. Patient has pain to palpation over the greater trochanter on the left. Neuro: COMMON NORMALS: patient oriented x3, CN's II-XII intact bilaterally, moves all extremities, no focal motor deficits and no sensory deficits noted MENINGEAL SIGNS: Yes no meningeal signs SPEECH: speech normal Psych: COMMON NORMALS: mental status grossly normal, Normal thought process present, cooperative, normal affect, speech normal and activity/motor behavior normal APPEARANCE: Yes well kempt SPEECH: Yes normal speech THOUGHT PROCESS: Normal thought process present Skin: COMMON NORMALS: no rashes or lesions noted, turgor normal, no jaundice, no petechiae and no mottling GENERAL SKIN EXAM: no rashes or lesions noted and turgor normal Course Vital Signs: Vital signs: Vital Signs Temperature 98.2 F 04/22/20 15:48 Pulse Rate 90 04/22/20 16:58 Respiratory Rate 18 04/22/20 17:15 Blood Pressure 96/61 04/22/20 16:58 Pulse Oximetry 98 04/22/20 17:15 MDM - Fall MDM Narrative: Medical decision making narrative: Case discussed with both Drs. Barrientos and Apoorva, they will admit and consult respectively. Lab Data: Attestation: I reviewed the patient's lab results. Labs: Lab Results 04/22/20 04/22/20 04/22/20 Range/Units 16:13 16:13 16:13 WBC 12.7 H (4.0-10.0) 10^3/ uL RBC 3.77 L (4.1-5.3) 10^6/u L Hgb 11.0 L (11.5-15.3) g/dL Hct 35.4 L (37.0-47.0) % MCV 93.9 (81-99) fL MCH 29.2 (28.0-34.0) pg MCHC 31.1 (30.0-36.0) g/dL RDW 13.9 (12.1-15.1) % Plt Count 202 (130-400) 10^3/c mm MPV 9.6 (7.4-10.4) fL Neut % (Auto) 72.6 % Lymph % (Auto) 15.7 % [place] % (Auto) 9.0 % Eos % (Auto) 1.2 % Baso % (Auto) 0.6 % Neut # (Auto) 9.22 H (1.8-7.7) 10^3/u L Lymph # (Auto) 2.0 (0.8-4.8) 10^3/u L [place] # (Auto) 1.2 H (0.2-0.9) 10^3/u L Eos # (Auto) 0.2 (0.0-0.8) 10^3/u L Baso # (Auto) 0.1 (0.0-0.1) 10^3/u L Nucleated RBC % (a uto) 0 % Nucleated RBCs # 0.0 /100WBC PT 13.20 (10.5-13.3) SECO NDS INR 0.97 (0.8-1.2) APTT 27.7 (23.9-36.7) SECO NDS Sodium 135 L (136-145) mmol/L Potassium 4.7 (3.5-5.1) mmol/L Chloride 105 (98-107) mmol/L Carbon Dioxide 22 (22-29) mmol/L Anion Gap 12.7 (5-19) BUN 24 H (8-23) mg/dL Creatinine 0.9 (0.5-0.9) mg/dL GFR Calculation 62.5 L (90-130) mL/min Glucose 160 H (65-115) mg/dL Calculated Osmolal ity 280 L (285-295) mOsm/k g Calcium 7.6 L (8.5-10.5) mg/dL Total Bilirubin 0.3 (0.15-1.2) mg/dL AST 18 (0-32) U/L ALT 13 (0-33) U/L Alkaline Phosphata se 78 (35-105) IU/L Total Protein 6.1 L (6.6-8.7) g/dL Albumin 3.2 L (3.5-5.2) g/dL Globulin 2.9 (1.3-4.6) g/dL Amorphous Sediment 04/22/20 Range/Units 16:51 WBC (4.0-10.0) 10^3/ uL RBC (4.1-5.3) 10^6/u L Hgb (11.5-15.3) g/dL Hct (37.0-47.0) % MCV (81-99) fL MCH (28.0-34.0) pg MCHC (30.0-36.0) g/dL RDW (12.1-15.1) % Plt Count (130-400) 10^3/c mm MPV (7.4-10.4) fL Neut % (Auto) % Lymph % (Auto) % [place] % (Auto) % Eos % (Auto) % Baso % (Auto) % Neut # (Auto) (1.8-7.7) 10^3/u L Lymph # (Auto) (0.8-4.8) 10^3/u L [place] # (Auto) (0.2-0.9) 10^3/u L Eos # (Auto) (0.0-0.8) 10^3/u L Baso # (Auto) (0.0-0.1) 10^3/u L Nucleated RBC % (a uto) % Nucleated RBCs # /100WBC PT (10.5-13.3) SECO NDS INR (0.8-1.2) APTT (23.9-36.7) SECO NDS Sodium (136-145) mmol/L Potassium (3.5-5.1) mmol/L Chloride (98-107) mmol/L Carbon Dioxide (22-29) mmol/L Anion Gap (5-19) BUN (8-23) mg/dL Creatinine (0.5-0.9) mg/dL GFR Calculation (90-130) mL/min Glucose (65-115) mg/dL Calculated Osmolal ity (285-295) mOsm/k g Calcium (8.5-10.5) mg/dL Total Bilirubin (0.15-1.2) mg/dL AST (0-32) U/L ALT (0-33) U/L Alkaline Phosphata se (35-105) IU/L Total Protein (6.6-8.7) g/dL Albumin (3.5-5.2) g/dL Globulin (1.3-4.6) g/dL Amorphous Sediment Not Reportable Imaging Data^: CT Head: Radiologist's impression: [address] [place] [address] CT Scan Report Signed Patient: Steffanie Angelo Unit #: [id number] : 1950 Age/Sex: 69 / F ADM Date: 04/22/20 Loc: [facility] Room/Bed: [facility] Attending Dr: Pawel Barrientos MD Ordering Provider/Ordering MD: Clara Dinh DO Date of Service: 04/22/20 Procedure(s): CT head wo con* [id number] Accession Number(s): [id number] Report Number: [id number] PROCEDURE INFORMATION: Exam: CT Head Without Contrast Exam date and time: 04/22/2020 4:11 PM Age: 69 years old Clinical indication: Injury or trauma; Fall; Initial encounter; Blunt trauma (contusions or hematomas); Without loss of consciousness; Patient HX: Tripped on loose carpet while walking - denies loc; Additional info: Fall/injury TECHNIQUE: Imaging protocol: Computed tomography of the head without contrast. Radiation optimization: All CT scans at this facility use at least one of these dose optimization techniques: automated exposure control; mA and/or kV adjustment per patient size (includes targeted exams where dose is matched to clinical indication); or iterative reconstruction. COMPARISON: No relevant prior studies available. RADIATION DOSE METRICS: Total DLP (mGy-cm): 836.09 FINDINGS: Brain: There is physiologic calcification in the basal ganglia regions. There is no intracranial mass, hemorrhage or edema. There is mild cortical atrophy. Ventricles: Normal. No ventriculomegaly. Bones/joints: There is downward bulging of the floor of the right orbit which is not fully evaluated on this examination. This suggests a history of old healed right orbital floor fracture. Correlation with clinical history is suggested. No acute fracture is identified. Sinuses: Visualized sinuses are unremarkable. No fluid levels. Mastoid air cells: Visualized mastoid air cells are well aerated. Soft tissues: Unremarkable. CT/CT head wo con* [id number] IMPRESSION: No acute intracranial finding. Radiation Dose CTDIVOL = (mGy): DLP = 836.09 (mGy-cm) Dictated By: Yossi Dial Signed By: Yossi Dial Signed Date/Time: 04/22/201756 DD/ 54 CXR: My impression: No acute cardiopulmonary findings. Left Hip with Pelvis: My impression: Left femoral neck fracture extending into greater trochanter. EKG Data^: EKG 1: Attestation: I personally reviewed and interpreted this EKG as follows: EKG interpretation date: 04/22/20 EKG interpretation time: 17:33 Interpretation: Normal sinus rhythm at 89 beats a minute, first-degree AV block, no acute ST-T wave changes. Normal intervals, no blocks. 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
--- NOTE | 2020-04-22 17:55 | P.HP_ITS ---
Providers/Chief Complaint Admitting Physician: Pawel Barrientos MD Primary Care Provider: Pat Tovar APN Chief Complaint: LEFT HIP PAIN History of Present Illness Steffanie Angelo is a 69 year old female presents to emerge department after she tripped and fell [place] the [place] over [place] rolled carpet. She landed on her left hip and immediately developed significant pain. Chest x-ray in emergency department showed proximal left femoral fracture and patient is being admitted for surgery to be performed by Dr. Guerin. Patient reports that this morning when she woke up she was somewhat generally weak. She denied any complaints otherwise including dysuria. Her urinalysis s howed evidence of UTI. Patient had previous history of the same but long time ago. She has previous history of coronary artery disease requiring stent placement 8 years ago. She reports having previous history of mini stroke and is currently on Plavix. Reports previously she has been diagnosed with diabetes mellitus and was taking metformin but approximately 5 years ago her sugars started to no rmalize with loss of weight and she no more requires any anti-hyperglycemic medications. She usually relatively active at home performing all the chores. She denies ever having chest pain but does report getting dyspneic on certain exertion like mopping floors. Usually she would rest for couple of minutes and her shortness of breath would go away. This been going on for many years and is unchanged recently. She does see Dr. Briscoe every 6 months and her next appointment is coming due soon. Reports that she had colonoscopy 2 years ago which was normal. Reports that she previously had iron deficiency anemia and had upper endoscopy without significant findings. She has obstructive sleep apnea and uses CPAP at night. She denies paroxysmal nocturnal dyspnea, orthopnea or lower extremity swelling. EKG showed sinus rhythm with nonspecific ST-T changes. Review of Systems Const: Denies: fever(s) or chills Eyes: Denies: change in vision ENMT: Denies: throat pain or change in hearing Card: Denies: chest pain, edema or lightheadedness Resp: Denies: dyspnea (Except as mentioned.) or productive cough GI: Reports: constipation; Denies: abdominal pain, nausea, vomiting, dysphagia, diarrhea, hematochezia or melena : Denies: difficulty voiding Musc: Reports: back pain (Chronic for many years.) and extremity pain (Bilateral chronic lower extremity pain secondary to peripheral neuropathy.); Denies: joint swelling Skin/Breast: Denies: rash or erythema Neuro: Denies: headache(s) or weakness in extremities Psych: Denies: depression or suicidal ideation Endo: Denies: excessive sweating Oneil/Lymph: Denies: easy bleeding or tender lymph nodes All/Imm: Denies: throat swelling Medications/Allergies Home Medications Medication Instructions Recorded Confirmed Last Taken Type atorvastatin 80 mg PO DAILY 04/22/20 04/22/20 04/21/20 History carvedilol 3.125 mg PO BID 04/22/20 04/22/20 04/22/20 History clonazepam 1 mg PO BEDTIME 04/22/20 04/22/20 04/21/20 History clopidogrel 75 mg PO DAILY 04/22/20 04/22/20 04/22/20 History escitalopram oxalate 20 mg PO DAILY 04/22/20 04/22/20 04/22/20 History gabapentin 300 mg PO QID 04/22/20 04/22/20 04/22/20 History hydrocodone-acetaminophen 1 tab PO Q4H PRN 04/22/20 04/22/20 04/22/20 History levothyroxine 125 mcg PO DAILY 04/22/20 04/22/20 04/22/20 History olmesartan 40 mg PO DAILY 04/22/20 04/22/20 04/22/20 History pantoprazole 40 mg PO BID 04/22/20 04/22/20 04/22/20 History tizanidine 4 mg PO TID PRN 04/22/20 04/22/20 Unknown History Allergies Allergy/AdvReac Type Severity Reaction Status Date / Time codeine Allergy Unknown Verified 04/22/20 15:59 diclofenac Allergy Unknown Verified 04/22/20 15:59 diflunisal Allergy Unknown Verified 04/22/20 15:59 flurbiprofen Allergy Unknown Verified 04/22/20 15:59 hydromorphone [From Dilaudid] Allergy Unknown Verified 04/22/20 15:59 ibuprofen Allergy Unknown Verified 04/22/20 15:59 indomethacin Allergy Unknown Verified 04/22/20 15:59 ketoprofen Allergy Unknown Verified 04/22/20 15:59 ketorolac Allergy Unknown Verified 04/22/20 15:59 meloxicam Allergy Unknown Verified 04/22/20 15:59 misoprostol Allergy Unknown Verified 04/22/20 15:59 morphine Allergy ADR-Itching Verified 04/22/20 15:50 nabumetone Allergy Unknown Verified 04/22/20 15:59 naproxen Allergy Unknown Verified 04/22/20 15:59 NSAIDS (Non-Steroidal Allergy Unknown Verified 04/22/20 15:59 Anti-Inflamma oxaprozin Allergy Unknown Verified 04/22/20 15:59 Penicillins Allergy Unknown Verified 04/22/20 15:59 piroxicam Allergy Unknown Verified 04/22/20 15:59 Sulfa (Sulfonamide Allergy Unknown Verified 04/22/20 15:59 Antibiotics) sulindac Allergy Unknown Verified 04/22/20 15:59 tolmetin Allergy Unknown Verified 04/22/20 15:59 PFSH Acute PFSH: Medical History (Updated 04/22/20 @ 18:15 by Pawel Barrientos MD) Chronic anemia Chronic back pain Coronary artery disease Dyslipidemia History of diabetes mellitus History of MRSA infection History of TIA (transient ischemic attack) Hypertension Obstructive sleep apnea Peripheral neuropathy Surgical History (Updated 04/22/20 @ 18:09 by Pawel Barrientos MD) H/O tubal ligation History of bladder suspension procedure History of cholecystectomy Hx of elbow surgery Family History (Updated 04/22/20 @ 18:09 by Pawel Barrientos MD) Mother Cancer Uterine Father CAD (coronary artery disease) Social History (Updated 04/22/20 @ 18:11 by Pawel Barrientos MD) Smoking and tobacco status: former smoker Quit status (tobacco): has quit using tobacco Year quit tobacco: Prior to 1994 Alcohol intake: never Household members: other Details: . Lives with her girlfriend Vitals/I&O/Wt Last Vital Signs Temp 98.2 F 04/22/20 15:48 Pulse 90 04/22/20 16:58 Resp 18 04/22/20 17:15 BP 96/61 04/22/20 16:58 Pulse Ox 98 04/22/20 17:15 Weight last 48 hrs Weight 77.111 kg Physical Exam Const: COMMON NORMALS: no acute distress, patient oriented x3 and alert HENMT: COMMON NORMALS: normocephalic and atraumatic HEAD & SCALP: normo cephalic and atraumatic OTHER: Mucous membranes are dry. Eye: COMMON NORMALS: EOMs intact bilaterally, conjunctivae normal and no scleral icterus CONJUNCTIVA: Yes conjunctivae normal Neck/C-Spine: COMMON NORMALS: no lymphadenopathy and no meningeal signs Lymph: LYMPHATIC: no lymphadenopathy noted Chest: COMMONS NORMALS: normal palpation of entire chest wall Resp: COMMON NORMALS: No use of accessory muscles and clear to auscultation bilaterally AUSCULTATION: clear to auscultation bilaterally Cardio: COMMON NORMALS: regular rate, regular rhythm and No murmurs present (Cardio) RATE: regular rate RHYTHM: regular rhythm OTHER: No lower extremity edema GI: COMMON NORMALS: Soft to palpation and non-tender PALPATION: Yes Soft to palpation RECTAL EXAM: deferred : COMMON NORMALS: Yes no CVA tenderness BLADDER/KIDNEY EXAM: Yes no CVA tenderness Back/Pelvis: COMMON NORMALS: no CVA tenderness and thoracic and lumbar spine normal to inspection Extremity: OTHER: Left hip externally rotated. Neurovascularly intact. Neuro: COMMON NORMALS: patient oriented x3 and no focal motor deficits SENSORIUM/ORIENTATION: Yes alert MENINGEAL SIGNS: Yes no meningeal signs Psych: COMMON NORMALS: mental status grossly normal, Normal thought process present and cooperative THOUGHT PROCESS: Normal thought process present Skin: COMMON NORMALS: no rashes or lesions noted GENERAL SKIN EXAM: no rashes or lesions noted Urinary Catheter Management^: Julio: Cath Placed During This Visit: yes Urinary Catheter Date of Insertion: 04/22/20 Urinary Catheter Time of Insertion: 17:08 Data : 04/22/20 16:13 04/22/20 16:13 A&P Assessment and plan (1) Hip fracture, left: Status: Acute Qualifiers: Encounter type: initial encounter Fracture type: closed Qualified Code(s): S72.002A - Fracture of unspecified part of neck of left femur, initial encounter for closed fracture (2) Urinary tract infection: Status: Acute (3) Chronic anemia: Status: Acute (4) Hypertension: Status: Acute (5) Dyslipidemia: Status: Acute (6) Obstructive sleep apnea: Status: Acute (7) Coronary artery disease: Status: Acute (8) Dehydration with hyponatremia: Status: Acute Additional A&P Information PLAN: Patient appears to have elevated risk for adverse perioperative cardiac outcome given her previous history of coronary artery disease, dyslipidemia, hypertension and history of diabetes. She does report chronic and unchanged dyspnea on exertion for many years. Since patient denies any recent changes or clinically significant cardiac complaints I do not think patient requires any further cardiac evaluation. This was discussed with patient and she agrees to proceed with surgery. We will hydrate patient with normal saline at 75 mL/h. Monitor urinary output. Will start patient on ceftriaxone for treatment of UTI. Awaiting urine culture results. Hold Plavix for now and resume when deemed safe from surgical standpoint. Will start patient on Lovenox from tomorrow evening for DVT prophylaxis if okay by Dr. Guerin. Protonix for GI protection. Patient can use CPAP at night. Ideally if patient can get her home unit. Because patient is on muscle relaxant, clonazepam at night and opiate medications will monitor on continuous pulse oximetry. Attestations Medical Necessity Statement*: Patient with hip fracture requires close inpatient monitoring and treatment. I expect patient will require more than 2 midnights. 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
[2020-04-22 18:01] LABS: Urine Appearance Clear (CLEAR); Urine Color Yellow (Yellow)
[2020-04-22 18:02] LABS: Add Urine Culture? No; Bacteria Urine TRACE; Bilirubin Urine Neg (NEGATIVE); Blood Urine 2+ (Negative); Glucose Urine UA Norm (Normal); Ketones Urine Negative (Negative); Leukocyte Esterase Urine Negative (Negative); Mucus Urine 1+; Nitrate Urine Negative (Negative); Protein Urine Neg (Negative); RBC Urine RARE /hpf (0-2); Squamous Epithelial Cell Urine 0-4 (0-5); Urobilinogen Urine Norm (Negative); WBC Urine 0-4 /hpf (0-5); pH Urine 5 (5-7)
[2020-04-22] MEDS: HYDROcodone-acetaminophen 10-325 mg Tablet 1 TAB PO (18:50)
[2020-04-22] MEDS: cefTRIAXone 1,000 MG in sodium chloride 0.9% (plus) 50 ML 100 MG IV (18:57)
[2020-04-22] MEDS: sodium chloride 0.9% 1,000 ML 75 ML IV (18:58)
[2020-04-22] MEDS: pantoprazole DR 40 mg Tablet PO (20:23)
--- NOTE | 2020-04-22 20:43 | PC.NURSE ---
pt transfered to icu bed one. Report given to danielle beltran
[2020-04-22] MEDS: gabapentin 300 mg Capsule PO (21:51)
[2020-04-22] MEDS: CLONazepam 0.5 mg Tablet 1 MG PO (21:51)
[2020-04-22] MEDS: sennosides 8.6 mg Tablet 17.2 MG PO (21:51)
[2020-04-23] VITALS (109 sets, daily range): BP systolic 51–154; BP diastolic 36–120; PULSE 63–100; RESP 11–30; TEMP 36.6–37.3; O2SAT 78–100
--- NOTE | 2020-04-23 | XRR_ITS ---
PROCEDURE INFORMATION: Exam: XR Left Hip with Pelvis when Performed Exam date and time: 04/24/2020 7:43 AM Age: 69 years old Clinical indication: Condition or disease; Other: FX surgery; Prior surgery; Surgery date: Post-operative (0-2 days); Surgery type: Orif lt hip; Patient HX: FX hip TECHNIQUE: Imaging protocol: XR Left hip with pelvis when performed. Views: 2 or 3 views. COMPARISON: CR (PELVIS, ) 04/22/2020 4:05 PM FINDINGS: Bones/joints: Intraoperative digital spot radiographs performed during ORIF of the previously demonstrated proximal left femoral fracture. Near anatomic alignment is present after ORIF. Soft tissues: No acute soft tissue abnormality. XR/XR hip LT 2-3V wo/w pel* [id number] IMPRESSION: Postoperative changes.
--- NOTE | 2020-04-23 | SCC_ITS ---
Procedure Done: Open reduction internal fixation left intertrochanteric hip fracture 106.8 seconds of fluoroscopic guidance, for a cumulative dose of 15.03 mGy, was provided to Dr. Asher by the radiology department. C-arm images of the LEFT hip were saved for the patient's permanent record. [facility]
[2020-04-23 04:14] LABS: Basophils % 0.4 %; Eosinophils # 0.1 10^3/uL (0.0-0.8); Eosinophils % 1.2 %; Hematocrit 36.4 % (37.0-47.0); Hemoglobin 11.5 g/dL (11.5-15.3); Lymphocytes # 1.9 10^3/uL (0.8-4.8); Lymphocytes % 17.3 %; Mean Corpuscular HGB Conc 31.6 g/dL (30.0-36.0); Mean Corpuscular Volume 91.9 fL (81-99); Mean Platelet Volume 9.6 fL (7.4-10.4); Monocytes # 0.9 10^3/uL (0.2-0.9); Monocytes % 8.6 %; Neutrophils # 7.74 10^3/uL (1.8-7.7); Neutrophils % 71.9 %; Nucleated Red Blood Cells % 0 %; Platelet Count 213 10^3/cmm (130-400); Red Blood Count 3.96 10^6/uL (4.1-5.3); Red Cell Distribution Width 13.7 % (12.1-15.1); White Blood Count 10.8 10^3/uL (4.0-10.0)
[2020-04-23 04:35] LABS: Alanine Aminotransferase 13 U/L (0-33); Albumin Level 3.3 g/dL (3.5-5.2); Alkaline Phosphatase 78 IU/L (35-105); Anion Gap 12.9 (5-19); Aspartate Amino Transferase 18 U/L (0-32); Blood Urea Nitrogen 13 mg/dL (8-23); Calcium 8.2 mg/dL (8.5-10.5); Carbon Dioxide 23 mmol/L (22-29); Chloride 104 mmol/L (98-107); Creatinine Clr Calc Pharmacy 68.5829; Globulin 3.1 g/dL (1.3-4.6); Glomerular Filtration Rate 99.7 mL/min (90-130); Glucose 116 mg/dL (65-115); Magnesium 1.6 mg/dL (1.7-2.3); Osmolality Calculated 277 mOsm/kg (285-295); Potassium 4.9 mmol/L (3.5-5.1); Sodium 135 mmol/L (136-145); Total Bilirubin 0.5 mg/dL (0.15-1.2); Total Protein 6.4 g/dL (6.6-8.7)
[2020-04-23] MEDS: sodium chloride 0.9% 1,000 ML 100 ML IV ×2 (04:38→07:50)
[2020-04-23] MEDS: cefTRIAXone 1,000 MG in sodium chloride 0.9% (plus) 50 ML 100 MG IV (05:35)
[2020-04-23] MEDS: fentaNYL 50 mcg/mL INJ 2mL IVP ×3 (06:09→20:27)
[2020-04-23] MEDS: tizanidine 4 mg Tablet PO (07:50)
[2020-04-23] MEDS: magnesium sulfate premix 2 GM/50 ML PIGGYBACK IV (07:50)
[2020-04-23] MEDS: HYDROcodone-acetaminophen 10-325 mg Tablet 1 TAB PO (07:51)
[2020-04-23] MEDS: atorvastatin 40 mg Tablet 80 MG PO (07:51)
[2020-04-23] MEDS: pantoprazole DR 40 mg Tablet PO ×2 (07:51→20:23)
[2020-04-23] MEDS: losartan 50 mg Tablet 100 MG PO (07:52)
[2020-04-23] MEDS: gabapentin 300 mg Capsule PO ×2 (07:52→20:23)
[2020-04-23] MEDS: escitalopram 10 mg Tablet 20 MG PO (07:52)
[2020-04-23] MEDS: carvedilol 3.125 mg Tablet PO ×2 (07:53→20:23)
[2020-04-23] MEDS: levothyroxine 125 mcg Tablet PO (07:53)
[2020-04-23] MEDS: sodium chloride 0.9% 1,000 ML 75 ML IV (07:59)
[2020-04-23 08:57] LABS: Glucose Point of Care 135 mg/dL (70-110)
--- NOTE | 2020-04-23 09:21 | PC.NURSE ---
CHANGE IN VITALS Patient was given morning medications at 0750. Patient was alert and oriented upon change of shift. Patient cage fighter were equal, pupils reactive, clear speech and symmetrical facial features. Patients glucose was 135. Patient takes all morning medications given at home, except the losartan, patient takes olmesartan at home. Patient was also given PRN Idamay and Zanaflex which she takes at home. Patient became diaphoretic about 0845, with pale and cool skin, patient complained of being hot. Gave cold wash cloths. Temperature of 98.8. Changed position. Dr. Barrientos notified and gave orders to give 1,000 mL bolus at 500 mL/hour. Patient current BP is 95/51. Will continue to monitor.
[2020-04-23] MEDS: sodium chloride 0.9% 1,000 ML 500 ML IV (09:24)
--- NOTE | 2020-04-23 09:34 | P.PN_ITS ---
Subjective Subjective: Interval history: Patient denies shortness of breath or chest pain this morning. Continues to have significant left hip pain. She was transferred to ICU yesterday because we cannot administer fentanyl on the medical floor and patient has extensive medication allergy/adverse reactions. She did not want to try other medications. She became hypotensive this morning after blood pressure medications were given. This improved with fluid bolus. Initially plan was to have surgery tomorrow morning but I have discussed with Dr. Asher and she thinks she can perform it later this afternoon at around 3 PM. This should be okay if patient's blood pressure nicely recovers. We will keep patient n.p.o. Continue IV fluids. Patient is receiving large amount of opioids which likely contributed to blood pressure decrease. WBC is coming down. Hemoglobin and platelets are stable. Magnesium is 1.6 this morning and supplementation was given. Vitals/I&O/Wt Last Vital Signs Temp 98.8 F 04/23/20 09:15 Pulse 65 04/23/20 09:15 Resp 22 H 04/23/20 09:15 BP 51/36 04/23/20 09:15 Pulse Ox 94 04/23/20 09:15 04/22/20 04/23/20 04/23/20 22:59 06:59 14:59 Intake Total 450 / 450 0 / 450 1296.25 / 1296.25 Output Total 3000 / 3000 475 / 475 Balance 450 / 450 -3000 / -2550 821.25 / 821.25 Weight last 48 hrs Weight 77.111 kg Physical Exam Const: COMMON NORMALS: no acute distress and patient oriented x3 Resp: COMMON NORMALS: normal respiratory effort and clear to auscultation bilaterally AUSCULTATION: clear to auscultation bilaterally Cardio: COMMON NORMALS: regular rate, regular rhythm and S2 normal heart sound present RATE: regular rate RHYTHM: regular rhythm HEART SOUNDS: S2 normal heart sound present OTHER: No lower extremity edema GI: COMMON NORMALS: Normal to inspection, nondistended, normoactive bowel sounds present, Soft to palpation and non-tender PALPATION: Yes Soft to palpation Neuro: COMMON NORMALS: patient oriented x3 and no focal motor deficits Urinary Catheter Management^: Julio: Cath Placed During This Visit: yes Reason for Continuing Indwelling Catheter: Accurate Measurement of Urinary Output in Critically Ill Patients Urinary Catheter Date of Insertion: 04/22/20 Urinary Catheter Time of Insertion: 17:08 Data : 04/23/20 03:43 04/24/20 03:36 A&P Assessment and plan (1) Hip fracture, left: Status: Acute Qualifiers: Encounter type: initial encounter Fracture type: closed Qualified Code(s): S72.002A - Fracture of unspecified part of neck of left femur, initial encounter for closed fracture (2) Urinary tract infection: Status: Acute (3) Chronic anemia: Normocytic without evidence of iron deficiency. Status: Acute (4) Hypertension: Status: Acute (5) Dyslipidemia: Status: Acute (6) Obstructive sleep apnea: Status: Acute (7) Coronary artery disease: Status: Acute (8) Dehydration with hyponatremia: Status: Acute Additional A&P Information PLAN: I believe I saw completely different values on urinalysis yesterday. Her UA this morning shows no evidence of UTI and since patient did not complain of urinary symptoms I will go ahead and discontinue ceftriaxone. Continue IV fluids and analgesics. If blood pressure is stable we will proceed with surgery around 3 PM. Continue holding Plavix. I will DC Lovenox for DVT prophylaxis which was supposed to be started this evening. Since patient is on Plavix I will let Dr. Asher to initiate DVT prophylaxis as patient may be prone to more bleeding. Attestations Medical Necessity Statement*: Patient with hip fracture requires ICU monitorin g and treatment as she cannot get fentanyl on the floor. Time Spent in Patient Care: 16 - 35 minutes Coding Level of Care Code Acute Ab Initio Etl Developer for [facility] Fwd Exam Detailed Diagnoses Hip fracture, left S72.002A Encounter type: initial encounter Fracture type: closed Urinary tract infection N39.0 Chronic anemia D64.9 Hypertension I10 Dyslipidemia E78.5 Obstructive sleep apnea G47.33 Coronary artery disease I25.10 Dehydration with hyponatremia E86.0; E87.1
[2020-04-23] MEDS: naloxone 0.4 mg/ml SDV IVP (10:47)
--- NOTE | 2020-04-23 12:50 | PC.NURSE ---
[facility] [employer] Patient continued to stay hypotensive after 800 mL out of 1,000 mL bolus was administered. Dr Barrientos notified again and gave orders to give Naloxone 0.4 mg IVP once. Blood pressure prior to IV naloxone was 84/50 at 1045. Naloxone administered at 1047. BP at 1050 increased to 103/56 and to 114/[address] Barrientos notified of BP increase and gave orders to discontinue [place] and to only give the IV fentanyl.
--- NOTE | 2020-04-23 13:25 | P.ANESASSM_ITS ---
Pre-Anesthetic Assessment Pre-Anesthetic Assessment: Height/Weight: Height 1.63 m Weight 77.111 kg Temp Pulse Resp BP Pulse Ox 98.8 F 79 21 H 113/57 96 04/23/20 09:15 04/23/20 12:00 04/23/20 12:00 04/23/20 12:00 04/23/20 12:00 Preop Diagnosis: Left Intertrochanteric Hip Fracture Proposed Procedure: Operation Date: 04/23/20 14:40 Proposed Procedures p Trochanteric Femoral Nail(Left) - Jailyn Asher MD Last intake: Intake Last Liquid Date 04/22/20 Last Liquid Time 23:59 Last Solid Date 04/22/20 Last Solid Time 13:00 Social: Social History: Tobacco (quit 1994) and No alcohol Exam: Pre-Anes Outpt Exam: alert, oriented x 3, clear to auscultation bilaterally and regular rate & rhythm Airway: Submandibular: WNL Cervical ROM: WNL MP: 3 Dentition: False (upper and lower) History/ROS: No significant history except as noted Pulmonary: Pulmonary: ZUNIGA and Sleep apnea CV/HEM: CV/HEM: Anemia, CAD (one stent 2011) and HTN : : None reported Hepatic: Hepatic: None reported GI: GI: GERD (occ) and PUD Metabolic: Metabolic: DM (diet controlled), Hyperlipidemia and Thyroid Musc/skel: Musc/skel: Lower Back Pain and OA/DJD Neuropsych: Neuropsych: Anxiety, Depression and TIA Anesthetic Plan: ASA status: 3 Anesthesia: Anesthesia Evaluation and General Risk of > 500 ml blood loss (7ml/kg in children): No Meds/Allergies Current Medications: Current Medications Generic Name Dose Route Start Last Admin Trade Name Locoq PRN Reason Stop Dose Admin Atorvastatin Calci um 80 mg 04/23/20 09:00 04/23/20 07:51 Lipitor PO 80 mg DAILY JOB Administration Carvedilol 3.125 mg 04/22/20 18:23 04/23/20 07:53 Coreg PO 3.125 mg BID JOB Administration Clonazepam 1 mg 04/22/20 21:00 04/22/20 21:51 Klonopin PO 1 mg BEDTIME JOB Administration Escitalopram Oxala te 20 mg 04/23/20 09:00 04/23/20 07:52 Lexapro PO 20 mg DAILY JOB Administration Fentanyl 50 mcg 04/22/20 19:12 04/23/20 06:09 Sublimaze IVP 50 mcg Q2H PRN Administration SEVERE PAIN Gabapentin 300 mg 04/22/20 21:00 04/23/20 12:16 Neurontin PO Not Given QID JOB Sodium Chloride 1,000 mls @ 100 m ls/hr 04/22/20 18:23 04/23/20 07:50 Sodium Chloride 0.9% IV Infused .Q10H JOB Infusion Sodium Chloride 1,000 mls @ 75 ml s/hr 04/22/20 18:23 04/23/20 07:59 Sodium Chloride 0.9% IV 75 mls/hr .[id number] JOB Administration Levothyroxine Sodi um 125 mcg 04/23/20 09:00 04/23/20 07:53 Synthroid PO 125 mcg DAILY JOB Administration Losartan Potassium 100 mg 04/23/20 09:00 04/23/20 07:52 Cozaar PO 100 mg DAILY JOB Administration Pantoprazole Sodiu m 40 mg 04/22/20 20:00 04/23/20 07:51 Protonix PO 40 mg BID JOB Administration Senna 17.2 mg 04/22/20 21:00 04/22/20 21:51 Senna Lax PO 17.2 mg BEDTIME JOB Administration Tizanidine HCl 4 mg 04/22/20 18:23 04/23/20 07:50 Zanaflex PO 4 mg TID PRN Administration Muscle Spasm PFSH Anesthesia PFSH: Medical History (Updated 04/22/20 @ 18:15 by Pawel Barrientos MD) Chronic anemia Chronic back pain Coronary artery disease Dyslipidemia History of diabetes mellitus History of MRSA infection History of TIA (transient ischemic attack) Hypertension Obstructive sleep apnea Peripheral neuropathy Surgical History H/O tubal ligation History of bladder suspension procedure History of cholecystectomy Hx of elbow surgery Family History Mother Cancer Uterine Father CAD (coronary artery disease) Social History Smoking and tobacco status: former smoker Quit status (tobacco): has quit using tobacco Year quit tobacco: Prior to 1994 Alcohol intake: never Household members: other Details: . Lives with her girlfriend Data Anesthesia CBC & Chem 7: 04/23/20 03:43 04/23/20 03:43 Other Labs: Laboratory Results - last 48 hr 04/22/20 04/22/20 04/22/20 16:13 16:13 16:13 WBC 12.7 H RBC 3.77 L Hgb 11.0 L Hct 35.4 L MCV 93.9 MCH 29.2 MCHC 31.1 RDW 13.9 Plt Count 202 MPV 9.6 Neut % (Auto) 72.6 Lymph % (Auto) 15.7 [place] % (Auto) 9.0 Eos % (Auto) 1.2 Baso % (Auto) 0.6 Neut # (Auto) 9.22 H Lymph # (Auto) 2.0 [place] # (Auto) 1.2 H Eos # (Auto) 0.2 Baso # (Auto) 0.1 Nucleated RBC % (auto) 0 Nucleated RBCs # 0.0 PT 13.20 INR 0.97 APTT 27.7 Sodium 135 L Potassium 4.7 Chloride 105 Carbon Dioxide 22 Anion Gap 12.7 BUN 24 H Creatinine 0.9 GFR Calculation 62.5 L Glucose 160 H POC Glucose Calculated Osmolality 280 L Calcium 7.6 L Magnesium Total Bilirubin 0.3 AST 18 ALT 13 Alkaline Phosphatase 78 Total Protein 6.1 L Albumin 3.2 L Globulin 2.9 Urine Color Urine Appearance Urine pH Ur Specific [place] Urine Protein Urine Glucose (UA) Urine Ketones Urine Blood Urine Nitrate Urine Bilirubin Urine Urobilinogen Ur Leukocyte Esterase Urine RBC Urine WBC Ur Squamous Epith Cells Amorphous Sediment Urine Bacteria Urine Mucus 04/22/20 04/23/20 04/23/20 16:51 03:43 03:43 WBC 10.8 H RBC 3.96 L Hgb 11.5 Hct 36.4 L MCV 91.9 MCH 29.0 MCHC 31.6 RDW 13.7 Plt Count 213 MPV 9.6 Neut % (Auto) 71.9 Lymph % (Auto) 17.3 [place] % (Auto) 8.6 Eos % (Auto) 1.2 Baso % (Auto) 0.4 Neut # (Auto) 7.74 H Lymph # (Auto) 1.9 [place] # (Auto) 0.9 Eos # (Auto) 0.1 Baso # (Auto) 0.0 Nucleated RBC % (auto) 0 Nucleated RBCs # 0.0 PT INR APTT Sodium 135 L Potassium 4.9 Chloride 104 Carbon Dioxide 23 Anion Gap 12.9 BUN 13 Creatinine 0.6 GFR Calculation 99.7 Glucose 116 H POC Glucose Calculated Osmolality 277 L Calcium 8.2 L Magnesium 1.6 L Total Bilirubin 0.5 AST 18 ALT 13 Alkaline Phosphatase 78 Total Protein 6.4 L Albumin 3.3 L Globulin 3.1 Urine Color Yellow Urine Appearance Clear Urine pH 5 Ur Specific [place] 1.020 Urine Protein Neg Urine Glucose (UA) Norm Urine Ketones Negative Urine Blood 2+ H Urine Nitrate Negative Urine Bilirubin Neg Urine Urobilinogen Norm Ur Leukocyte Esterase Negative Urine RBC Rare Urine WBC 0-4 H Ur Squamous Epith Cells 0-4 H Amorphous Sediment Not Reportable Urine Bacteria Trace Urine Mucus 104/23/20 08:53 WBC RBC Hgb Hct MCV MCH MCHC RDW Plt Count MPV Neut % (Auto) Lymph % (Auto) [place] % (Auto) Eos % (Auto) Baso % (Auto) Neut # (Auto) Lymph # (Auto) [place] # (Auto) Eos # (Auto) Baso # (Auto) Nucleated RBC % (auto) Nucleated RBCs # PT INR APTT Sodium Potassium Chloride Carbon Dioxide Anion Gap BUN Creatinine GFR Calculation Glucose POC Glucose 135 Calculated Osmolality Calcium Magnesium Total Bilirubin AST ALT Alkaline Phosphatase Total Protein Albumin Globulin Urine Color Urine Appearance Urine pH Ur Specific [place] Urine Protein Urine Glucose (UA) Urine Ketones Urine Blood Urine Nitrate Urine Bilirubin Urine Urobilinogen Ur Leukocyte Esterase Urine RBC Urine WBC Ur Squamous Epith Cells Amorphous Sediment Urine Bacteria Urine Mucus Cardiac Studies: No Data to Display
[2020-04-23] MEDS: vancomycin 1,000 MG in sodium chloride 0.9% 250 ML 250 MG IV (14:27)
--- NOTE | 2020-04-23 14:31 | PM.CONSULT ---
Providers/Reason For Consult Consulting Physican/Specialty*: Dr. Jailyn Asher - Orthopedics Reason for Consult*: Left intertrochanteric hip fracture Requesting Physcian: Dr. Barrientos Attending Physician: Pawel Barrientos MD Primary Care Provider: Pat Tovar APN History of Present Illness History of Present Illness Steffanie Angelo is a 69 year old female who was in her usual state of health when she tripped and fell over a rolled carpet while at a flea market. The patient landed onto her left hip, she developed immediate pain causing her to be unable to ambulate. She [place] [facility] x-rays demonstrated an intertrochanteric left hip fracture. The patient did have evidence of urinary tract infection at the time of admission. She also has a history of stent placement and was currently on Plavix at the time of admission. Therefore, treatment was put on hold. Patient also has multiple medical allergies, and she was admitted to the intensive care unit from the floor to receive IV fentanyl. She did have some blood pressure issues once in the intensive care unit but these have subsequently resolved. The patient understands that she will need to undergo open reduction internal fixation. She is seen in the intensive care unit. Review of Systems Const: Denies: fever(s), chills, body aches, fatigue, malaise or diaphoresis Eyes: Denies: change in vision, blurry vision, blind spots, photophobia, eye discharge or eye redness ENMT: Denies: throat pain, odynophagia, hoarseness, swelling of lips/tongue, oral sores, ear or mastoid pain, ear discharge, change in hearing or nasal discharge Card: Denies: chest pain, palpitations, irregular heart rhythm, edema, lightheadedness, syncope, pre-syncope, dyspnea on exertion or orthopnea Resp: Denies: dyspnea (Except as mentioned.), productive cough, non-productive cough, wheezing, hemoptysis or chest congestion GI: Reports: constipation; Denies: abdominal pain, nausea, vomiting, hematemesis, coffee ground emesis, dysphagia, heartburn, diarrhea, GI cramping, hematochezia or melena : Denies: flank pain, difficulty voiding, dysuria, urinary frequency, urinary urgency or hematuria Musc: Reports: back pain (Chronic for many years.), extremity pain (Bilateral chronic lower extremity pain secondary to peripheral neuropathy.) and joint pain; Denies: neck pain, extremity swelling, joint swelling, joint redness, joint warmth or joint stiffness Skin/Breast: Denies: rash, pruritus, erythema, skin tenderness or jaundice Neuro: Denies: headache(s), numbness in extremities, weakness in extremities, sensory changes, lack of coordination, difficulty walking, dizziness, vertigo, confusion, Slurred speech present or seizure-like activity Psych: Denies: depression or suicidal ideation Endo: Denies: excessive sweating Oneil/Lymph: Denies: easy bruising, easy bleeding, petechiae, purpura, enlarged lymph nodes or tender lymph nodes All/Imm: Denies: urticaria, throat swelling, tongue swelling, facial swelling or acute wheezing Meds/Allergies Home Medications and Allergies Home Medications Medication Instructions Recorded Confirmed Last Taken Type atorvastatin 80 mg PO DAILY 04/22/20 04/22/20 04/21/20 History carvedilol 3.125 mg PO BID 04/22/20 04/22/20 04/22/20 History clonazepam 1 mg PO BEDTIME 04/22/20 04/22/20 04/21/20 History clopidogrel 75 mg PO DAILY 04/22/20 04/22/20 04/22/20 History escitalopram oxalate 20 mg PO DAILY 04/22/20 04/22/20 04/22/20 History gabapentin 300 mg PO QID 04/22/20 04/22/20 04/22/20 History hydrocodone-acetaminophen 1 tab PO Q4H PRN 04/22/20 04/22/20 04/22/20 History levothyroxine 125 mcg PO DAILY 04/22/20 04/22/20 04/22/20 History olmesartan 40 mg PO DAILY 04/22/20 04/22/20 04/22/20 History pantoprazole 40 mg PO BID 04/22/20 04/22/20 04/22/20 History tizanidine 4 mg PO TID PRN 04/22/20 04/22/20 Unknown History Allergies Allergy/AdvReac Type Severity Reaction Status Date / Time codeine Allergy Unknown Verified 04/22/20 15:59 diclofenac Allergy Unknown Verified 04/22/20 15:59 diflunisal Allergy Unknown Verified 04/22/20 15:59 flurbiprofen Allergy Unknown Verified 04/22/20 15:59 hydromorphone [From Dilaudid] Allergy Unknown Verified 04/22/20 15:59 ibuprofen Allergy Unknown Verified 04/22/20 15:59 indomethacin Allergy Unknown Verified 04/22/20 15:59 ketoprofen Allergy Unknown Verified 04/22/20 15:59 ketorolac Allergy Unknown Verified 04/22/20 15:59 meloxicam Allergy Unknown Verified 04/22/20 15:59 misoprostol Allergy Unknown Verified 04/22/20 15:59 morphine Allergy ADR-Itching Verified 04/22/20 15:50 nabumetone Allergy Unknown Verified 04/22/20 15:59 naproxen Allergy Unknown Verified 04/22/20 15:59 NSAIDS (Non-Steroidal Allergy Unknown Verified 04/22/20 15:59 Anti-Inflamma oxaprozin Allergy Unknown Verified 04/22/20 15:59 Penicillins Allergy Unknown Verified 04/22/20 15:59 piroxicam Allergy Unknown Verified 04/22/20 15:59 Sulfa (Sulfonamide Allergy Unknown Verified 04/22/20 15:59 Antibiotics) sulindac Allergy Unknown Verified 04/22/20 15:59 tolmetin Allergy Unknown Verified 04/22/20 15:59 Current Medications Current Medications Generic Name Dose Route Start Last Admin Trade Name Freq PRN Reason Stop Dose Admin Atorvastatin Calcium 80 mg 04/23/20 09:00 04/23/20 07:51 Lipitor PO 80 mg DAILY JOB Administration Carvedilol 3.125 mg 04/22/20 18:23 04/23/20 07:53 Coreg PO 3.125 mg BID JOB Administration Clonazepam 1 mg 04/22/20 21:00 04/22/20 21:51 Klonopin PO 1 mg BEDTIME JOB Administration Escitalopram Oxalate 20 mg 04/23/20 09:00 04/23/20 07:52 Lexapro PO 20 mg DAILY JOB Administration Fentanyl 50 mcg 04/22/20 19:12 04/23/20 06:09 Sublimaze IVP 50 mcg Q2H PRN Administration SEVERE PAIN Gabapentin 300 mg 04/22/20 21:00 04/23/20 12:16 Neurontin PO Not Given QID JOB Sodium Chloride 1,000 mls @ 100 mls/hr 04/22/20 18:23 04/23/20 07:50 Sodium Chloride 0.9% IV Infused .Q10H JOB Infusion Sodium Chloride 1,000 mls @ 75 mls/hr 04/22/20 18:23 04/23/20 07:59 Sodium Chloride 0.9% IV 75 mls/hr .[id number] JOB Administration Levothyroxine Sodium 125 mcg 04/23/20 09:00 04/23/20 07:53 Synthroid PO 125 mcg DAILY JOB Administration Losartan Potassium 100 mg 04/23/20 09:00 04/23/20 07:52 Cozaar PO 100 mg DAILY JOB Administration Pantoprazole Sodium 40 mg 04/22/20 20:00 04/23/20 07:51 Protonix PO 40 mg BID JOB Administration Senna 17.2 mg 04/22/20 21:00 04/22/20 21:51 Senna Lax PO 17.2 mg BEDTIME JOB Administration Tizanidine HCl 4 mg 04/22/20 18:23 04/23/20 07:50 Zanaflex PO 4 mg TID PRN Administration Muscle Spasm PFSH Acute PFSH: Medical History (Updated 04/23/20 @ 14:33 by Jailyn Asher MD) Chronic anemia Chronic back pain Coronary artery disease Dyslipidemia History of diabetes mellitus History of MRSA infection History of TIA (transient ischemic attack) Hypertension Obstructive sleep apnea Peripheral neuropathy Surgical History H/O tubal ligation History of bladder suspension procedure History of cholecystectomy Hx of elbow surgery Family History Mother Cancer Uterine Father CAD (coronary artery disease) Social History Smoking and tobacco status: former smoker Quit status (tobacco): has quit using tobacco Year quit tobacco: Prior to 1994 Alcohol intake: never Household members: other Details: . Lives with her girlfriend Vitals/I&O/Wt Last Vital Signs Temp 98.8 F 04/23/20 09:15 Pulse 79 04/23/20 12:00 Resp 21 H 04/23/20 12:00 BP 113/57 04/23/20 12:00 Pulse Ox 96 04/23/20 12:00 04/22/20 04/23/20 04/23/20 22:59 06:59 14:59 Intake Total 450 / 450 0 / 450 1296.25 / 1296.25 Output Total 3000 / 3000 475 / 475 Balance 450 / 450 -3000 / -2550 821.25 / 821.25 Weight last 48 hrs Weight 170 lb Physical Exam Const: COMMON NORMALS: no acute distress, patient oriented x3, no limitations, healthy appearing, alert and well nourished GENERAL APPEARANCE: cooperative, well kempt and well developed HENMT: COMMON NORMALS: normocephalic, atraumatic and Normal external nose present HEAD & SCALP: normal to inspection, normocephalic and atraumatic FACE & SINUS: normal facial exam and face symmetric NOSE: Normal external nose present and Normal nares present OTHER: Mucous membranes are dry. Eye: COMMON NORMALS: no scleral icterus GENERAL EYE: appearance normal, both eyes and all related structures ALIGNMENT: Yes alignment normal EYELID: eyelids normal Neck/C-Spine: COMMON NORMALS: full ROM, no lymphadenopathy and supple GENERAL: Yes normal visual inspection Chest: COMMONS NORMALS: normal inspection of the chest and normal palpation of entire chest wall Resp: COMMON NORMALS: normal respiratory effort, No retractions and No use of accessory muscles EFFORT & INSPECTION: Yes able to speak in complete sentences and Yes symmetric chest movement Cardio: HEART SOUNDS: no click, no gallops, no murmurs, no rubs and abnormal split S2 OTHER: No lower extremity edema Extremity: NARRATIVE EXTREMITY EXAM: Musculoskeletal exam unremarkable except for left hip. Left leg is shortened and externally rotated. Patient has pain to palpation over the greater trochanter on the left. LEFT LOWER EXTREMITY: Yes hip joint Left hip: Yes inspection (No skin breakdown), Yes palpation (Tenderness to palpation), Yes ROM (Limited and not evaluated secondary to fracture) and Yes neurovascular exam (Intact motor and sensory) OTHER: Left hip externally rotated. Neurovascularly intact. Neuro: COMMON NORMALS: patient oriented x3, CN's II-XII intact bilaterally, moves all extremities, no focal motor deficits and no sensory deficits noted SENSORIUM/ORIENTATION: Yes alert SPEECH: speech normal Psych: COMMON NORMALS: mental status grossly normal, Normal thought process present, cooperative, normal affect, speech normal and activity/motor behavior normal APPEARANCE: Yes well kempt SPEECH: Yes normal speech THOUGHT PROCESS: Normal thought process present Skin: COMMON NORMALS: no rashes or lesions noted, turgor normal, no jaundice, no petechiae and no mottling GENERAL SKIN EXAM: no rashes or lesions noted and turgor normal Urinary Catheter Management^: Julio: Cath Placed During This Visit: yes Reason for Continuing Indwelling Catheter: Accurate Measurement of Urinary Output in Critically Ill Patients Urinary Catheter Date of Insertion: 04/22/20 Urinary Catheter Time of Insertion: 17:08 Data Imaging^: Xray Ortho: I personally reviewed and interpreted this imaging study as follows: My impression: Displaced left intertrochanteric hip fracture with shortening. A&P Assessment and plan (1) Closed intertrochanteric fracture of left hip: X-rays are reviewed. The patient is evaluated. She has a displaced intertrochanteric left hip fracture with significant shortening. Discussion is undertaken with the patient regarding the need for surgical intervention. This was communicated to her into the nurse. Secondary to her multiple allergies, we will use vancomycin as a preoperative antibiotic. The patient understands the risks and wishes to proceed. Status: Acute Consult Attestations Medical Necessity Statement: Per hospitalist team. Coding Level of Care Code Acute Supervisor Facepiece Line for g Fwd Exam Comprehensive Diagnoses Closed intertrochanteric fracture of left hip S72.142A
--- NOTE | 2020-04-23 15:46 | PC.NURSE ---
TO SURGERY 1525 OR staff came and got patient at 1525 for surgery.
--- NOTE | 2020-04-23 16:39 | PC.NURSE ---
OR REPORT [id number] OR called and gave report. Patient still intubated, but OR staff suspects no issues with extubation at this time. Patient oxygen currently 99% and last BP was 115/52. Estimated blood loss of 100 mL.
--- NOTE | 2020-04-23 16:47 | PM.OP ---
Operative Report Date of procedure: April 23, 2020 Pre-op Diagnosis: Left Intertrochanteric Hip Fracture Post-op diagnosis: same Post-op Findings: Comminuted shortened left intertrochanteric hip fracture Procedure Done: Open reduction internal fixation left intertrochanteric hip fracture utilizing the following implants: The Deirdre gamma 3 trochanteric nail system with a size 11 mm x 180 mm x 125 degree nail, a 10.5 mm x 1.5 mm lag screw, and a distal locking screw size 5 mm x 35 mm. Specimens removed/disposition: None Pathology: none sent Surgeon: Jailyn Asher Paper Machine Back Tender: [facility] OR technicians Anesthesia: General (Intubated, ASA 3) Estimated blood loss (mL): 100 IV fluids (mL): 800 Urine output (mL): 50 Complications: None Findings: Shortened displaced left intertrochanteric hip fracture Condition: stable Disposition: ICU (Which is where the patient was preoperatively) Brief History: This 69-year-old woman presented [place]. She presented and was diagnosed with a closed intertrochanteric displaced left hip fracture. She was admitted to the medical service. She did have to be transferred to the ICU for pain management. Procedure: Patient is brought to the operating theater. After undergoing adequate general anesthesia with intubation, the patient was transferred to the fracture table, positioned on the table and fluoroscopic guidance obtained throughout the surgical procedure. Prior to the commencement of the surgical procedure, a surgical pause was performed. At the time of the surgical pause, we confirmed the site and side of surgery as well as preoperative surgical markings and appropriate and timely administration of IV antibiotics, vancomycin 1 g. Availability of equipment was also confirmed. Fluoroscopy was used to confirm the fracture was appropriately reduced in both AP and lateral planes. An incision was then made slightly above the greater trochanter to allow access to the greater trochanter. An awl was used to enter the greater trochanter and a guidewire was subsequently placed. Once the guidewire was confirmed to be in appropriate position in AP and lateral planes, reaming was accomplished over this to allow for the proximal diameter of the nail. Guidewire was then removed. An 11 m x 180 mm x 125 degree gamma 3 trochanteric nail was placed into appropriate position with positioning being confirmed in AP and lateral planes on the x-ray. It passed without difficulty. Guidewire was then passed through the jigging system into the femoral head. We wanted to be center or slightly inferior and posterior to center. Guidewire was placed into appropriate position. Once the guidewire was in appropriate position and this position was confirmed by x-ray. This was then measured and we chose a 105 mm lag screw. We reamed to allow for the lag screw to be placed. The 105 mm lag screw was then passed into the femoral head through the trochanteric nail. This was passed uneventfully and again position was confirmed in AP and lateral planes. Compression was obtained under fluoroscopic guidance. The set screw was then placed in position, tightened completely, and subsequently backed off one-quarter turn. The construct was left in position and attention was directed distally. Cannulas were again used to determine appropriate placement for the distal screw. This was placed in position without difficulty. It was measured off of the drill. The appropriate length screw was then obtained and placed in position without difficulty. Once the screw was in position, we confirmed appropriate placement of the components, and we removed the jigging system. Attention was then directed to closure. The hip was copiously irrigated with normal saline with antibiotics. Following this it was dried and closed. Tensor fascia radha was closed proximally with 0 Vicryl in an interrupted fashion. Subcutaneous tissues were closed with 2-0 Monocryl, and the skin was closed with a continuous 3-0 Monocryl subcuticular stitch. This was then covered with Tegaderm. The patient was removed from the fracture table and returned to recovery in satisfactory condition. The patient will be discharged to the floor for postoperative rehabilitation and pain management. There were no specimens obtained. Associated Problem List Diagnoses (1) Closed intertrochanteric fracture of left hip: Qualifiers: Encounter type: initial encounter Fracture alignment: displaced Qualified Code(s): S72.142A - Displaced intertrochanteric fracture of left femur, initial encounter for closed fracture
[2020-04-23] MEDS: docusate sodium 100 mg Capsule PO (20:23)
[2020-04-23] MEDS: CLONazepam 0.5 mg Tablet 1 MG PO (20:23)
[2020-04-23] MEDS: sennosides 8.6 mg Tablet 17.2 MG PO (20:23)
[2020-04-24] VITALS (42 sets, daily range): BP systolic 81–143; BP diastolic 46–96; PULSE 68–97; RESP 13–84; TEMP 36.2–36.9; O2SAT 87–100
[2020-04-24] MEDS: fentaNYL 50 mcg/mL INJ 2mL IVP ×3 (00:25→08:05)
[2020-04-24] MEDS: enoxaparin 40 mg/0.4 mL Syringe SUBCUT (04:24)
[2020-04-24] MEDS: sodium chloride 0.9% 1,000 ML 75 ML IV ×2 (05:03→17:17)
[2020-04-24 05:13] LABS: Alanine Aminotransferase 12 U/L (0-33); Alkaline Phosphatase 67 IU/L (35-105); Anion Gap 13.4 (5-19); Aspartate Amino Transferase 17 U/L (0-32); Blood Urea Nitrogen 10 mg/dL (8-23); Calcium 7.6 mg/dL (8.5-10.5); Carbon Dioxide 22 mmol/L (22-29); Chloride 104 mmol/L (98-107); Creatinine Clr Calc Pharmacy 68.5829; Globulin 2.8 g/dL (1.3-4.6); Glomerular Filtration Rate 123.1 mL/min (90-130); Glucose 111 mg/dL (65-115); Magnesium 1.7 mg/dL (1.7-2.3); Osmolality Calculated 277 mOsm/kg (285-295); Potassium 4.4 mmol/L (3.5-5.1); Sodium 135 mmol/L (136-145); Total Bilirubin 0.5 mg/dL (0.15-1.2); Total Protein 5.8 g/dL (6.6-8.7)
[2020-04-24] MEDS: bisacodyl 5 mg Tablet 10 MG PO (09:18)
[2020-04-24] MEDS: levothyroxine 125 mcg Tablet PO (09:19)
[2020-04-24] MEDS: pantoprazole DR 40 mg Tablet PO ×2 (09:19→17:17)
[2020-04-24] MEDS: atorvastatin 40 mg Tablet 80 MG PO (09:20)
[2020-04-24] MEDS: escitalopram 10 mg Tablet 20 MG PO (09:20)
[2020-04-24] MEDS: gabapentin 300 mg Capsule PO ×4 (09:20→20:38)
[2020-04-24] MEDS: carvedilol 3.125 mg Tablet PO ×2 (09:20→17:17)
[2020-04-24] MEDS: docusate sodium 100 mg Capsule PO ×2 (09:21→17:17)
--- NOTE | 2020-04-24 09:42 | PM.PN ---
Subjective Subjective: Interval history: Patient had surgery yesterday. Denies any shortness of breath or chest pain this morning. Reports that her hip pain is much better. She is still in ICU because of fentanyl use. Vitals/I&O/Wt Last Vital Signs Temp 97.2 F L 04/24/20 08:00 Pulse 87 04/24/20 08:00 Resp 84 H 04/24/20 09:13 BP 138/79 04/24/20 08:00 Pulse Ox 96 04/24/20 09:13 04/23/20 04/24/20 04/24/20 22:59 06:59 14:59 Intake Total 3270 / 4566.25 480 / 5046.25 240 / 240 Output Total 1850 / 2325 1000 / 3325 Balance 1420 / 2241.25 -520 / 1721.25 240 / 240 Weight last 48 hrs Weight 77.111 kg Physical Exam Const: COMMON NORMALS: no acute distress and patient oriented x3 Resp: COMMON NORMALS: normal respiratory effort and clear to auscultation bilaterally AUSCULTATION: clear to auscultation bilaterally Cardio: COMMON NORMALS: regular rate, regular rhythm and S2 normal heart sound present RATE: regular rate RHYTHM: regular rhythm HEART SOUNDS: S2 normal heart sound present OTHER: No lower extremity edema GI: COMMON NORMALS: Normal to inspection, nondistended, normoactive bowel sounds present, Soft to palpation and non-tender PALPATION: Yes Soft to palpation Neuro: COMMON NORMALS: patient oriented x3 and no focal motor deficits Urinary Catheter Management^: Julio: Cath Placed During This Visit: yes Reason for Continuing Indwelling Catheter: Accurate Measurement of Urinary Output in Critically Ill Patients Urinary Catheter Date of Insertion: 04/22/20 Urinary Catheter Time of Insertion: 17:08 Data : 04/23/20 03:43 04/24/20 03:36 A&P Assessment and plan (1) Hip fracture, left: Status: Acute Qualifiers: Encounter type: initial encounter Fracture type: closed Qualified Code(s): S72.002A - Fracture of unspecified part of neck of left femur, initial encounter for closed fracture (2) Urinary tract infection: Ruled out. Status: Acute (3) Chronic anemia: Normocytic without evidence of iron deficiency. Status: Acute (4) Hypertension: Status: Acute (5) Dyslipidemia: Status: Acute (6) Obstructive sleep apnea: Status: Acute (7) Coronary artery disease: Status: Acute (8) Dehydration with hyponatremia: Status: Acute Additional A&P Information PLAN: Continue with postop monitoring and treatment. The patient does not want to consider usp facility placement for rehabilitation and prefers to go home. Reports that she has adequate help at home. CBC was not done and will be ordered. We will continue ICU monitoring and treatment as patient still requests fentanyl for pain control. [place] was added and hopefully we can wean off fentanyl use. Attestations Medical Necessity Statement*: Patient post surgery with multiple opiate medication allergies requires ICU monitoring and treatment including fentanyl use. Time Spent in Patient Care: 16 - 35 minutes Coding Level of Care Code Acute Supervisor Data Processing for [facility] Fwd Diagnoses Hip fracture, left S72.002A Encounter type: initial encounter Fracture type: closed Urinary tract infection N39.0 Chronic anemia D64.9 Hypertension I10 Dyslipidemia E78.5 Obstructive sleep apnea G47.33 Coronary artery disease I25.10 Dehydration with hyponatremia E86.0; E87.1
[2020-04-24] MEDS: fentaNYL 50 mcg/mL INJ 2mL 25 MCG IVP (10:10)
[2020-04-24] MEDS: ondansetron 2 mg/ML SDV 2 mL 4 MG IVP (10:11)
[2020-04-24 10:50] LABS: Basophils # 0.1 10^3/uL (0.0-0.1); Basophils % 0.7 %; Eosinophils # 0.1 10^3/uL (0.0-0.8); Eosinophils % 0.7 %; Hematocrit 38.7 % (37.0-47.0); Hemoglobin 11.5 g/dL (11.5-15.3); Lymphocytes # 1.5 10^3/uL (0.8-4.8); Lymphocytes % 13.6 %; Mean Corpuscular HGB Conc 29.7 g/dL (30.0-36.0); Mean Corpuscular Hemoglobin 28.8 pg (28.0-34.0); Mean Platelet Volume 9.6 fL (7.4-10.4); Monocytes # 0.8 10^3/uL (0.2-0.9); Neutrophils # 8.27 10^3/uL (1.8-7.7); Neutrophils % 77.5 %; Nucleated Red Blood Cells % 0 %; Platelet Count 206 10^3/cmm (130-400); Red Blood Count 3.99 10^6/uL (4.1-5.3); Red Cell Distribution Width 13.2 % (12.1-15.1); White Blood Count 10.7 10^3/uL (4.0-10.0)
[2020-04-24] MEDS: losartan 50 mg Tablet 100 MG PO (11:28)
[2020-04-24] MEDS: HYDROcodone-acetaminophen 5-325 mg Tablet PO ×2 (11:29→15:59)
--- NOTE | 2020-04-24 12:38 | P.PN_ITS ---
Subjective Subjective: Interval history: Patient had surgery yesterday. Denies any shortness of breath or chest pain this morning. Reports that her hip pain is much better. She is still in ICU because of fentanyl use. Vitals/I&O/Wt Last Vital Signs Temp 97.2 F L 04/24/20 08:00 Pulse 87 04/24/20 08:00 Resp 84 H 04/24/20 09:13 BP 105/64 04/24/20 11:28 Pulse Ox 96 04/24/20 09:13 04/23/20 04/24/20 04/24/20 22:59 06:59 14:59 Intake Total 3270 / 4566.25 580 / 5146.25 240 / 240 Output Total 1850 / 2325 1000 / 3325 Balance 1420 / 2241.25 -420 / 1821.25 240 / 240 Weight last 48 hrs Weight 170 lb Physical Exam Const: COMMON NORMALS: no acute distress, patient oriented x3, no limitations, healthy appearing, alert and well nourished GENERAL APPEARANCE: cooperative, well kempt and well developed HENMT: COMMON NORMALS: normocephalic, atraumatic and Normal external nose present HEAD & SCALP: normocephalic and atraumatic NOSE: Normal external nose present Eye: GENERAL EYE: appearance normal, both eyes and all related structures Neck/C-Spine: COMMON NORMALS: full ROM, no lymphadenopathy and supple GENERAL: Yes normal visual inspection Chest: COMMONS NORMALS: normal inspection of the chest and normal palpation of entire chest wall Resp: COMMON NORMALS: normal respiratory effort and No use of accessory muscles EFFORT & INSPECTION: Yes able to speak in complete sentences and Yes symmetric chest movement Cardio: OTHER: No lower extremity edema Extremity: LEFT LOWER EXTREMITY: Yes hip joint Left hip: Yes inspection (Hip is not red or swollen. There is no tenderness to palpation.) and Yes neurov ascular exam (Intact distally with no evidence of DVT.) Neuro: COMMON NORMALS: patient oriented x3, moves all extremities, no focal motor deficits and no sensory deficits noted SENSORIUM/ORIENTATION: Yes alert SPEECH: speech normal Psych: COMMON NORMALS: mental status grossly normal, cooperative, normal affect and speech normal APPEARANCE: Yes well kempt SPEECH: Yes normal speech Skin: COMMON NORMALS: no rashes or lesions noted and turgor normal GENERAL SKIN EXAM: no rashes or lesions noted and turgor normal Urinary Catheter Management^: Julio: Cath Placed During This Visit: yes Reason for Continuing Indwelling Catheter: Accurate Measurement of Urinary Output in Critically Ill Patients Urinary Catheter Date of Insertion: 04/22/20 Urinary Catheter Time of Insertion: 17:08 Data : 04/24/20 10:28 04/24/20 03:36 A&P Assessment and plan (1) Closed intertrochanteric fracture of left hip: Patient is status post open reduction internal fixation left intertrochanteric hip fracture yesterday evening. She remains in the intensive care unit stating that fentanyl is the only medication which relieves her pain. I have advised her that we will be stopping the IV fentanyl and that she will need to go back on her standard hydrocodone which is part of her pain management plan with Dr. Burton. Also, I have advised her that she needs to go to penitentiary for a few days as she was anticipating care via her mother and sister. She is in agreement with this, and I have contacted social science research assistant and asked them to make arrangements as soon as possible. Status: Acute Qualifiers: Encounter type: initial encounter Fracture alignment: displaced Qualified Code(s): S72.142A - Displaced intertrochanteric fracture of left femur, initial encounter for closed fracture Attestations Medical Necessity Statement*: Per medical service Coding Level of Care Code Acute Applications Development Consultant for [employer] Exam Comprehensive Diagnoses Closed intertrochanteric fracture of left hip S72.142A Encounter type: initial encounter Fracture alignment: displaced
[2020-04-24] MEDS: vancomycin 1,000 MG in sodium chloride 0.9% 250 ML 250 MG IV (14:07)
--- NOTE | 2020-04-24 16:26 | PC.NURSE ---
Report was completed at 1545 for transfer. PT rounded, and helped ambulate patient into a wheelchair for transfer up to Med Surg. Patient was pre-medicated beforehand with 10 mg [place]. Patient vitals remained stable through transfer, and patient was being placed into a chair for time out of bed upon arrival to Med Surg.
--- NOTE | 2020-04-24 17:56 | PC.NURSE ---
Rcvd order from Dr Barrientos for [facility] [id number] Q4H PRN. Smoking Pipe Liner put order in as requested.
[2020-04-24] MEDS: CLONazepam 0.5 mg Tablet 1 MG PO (20:35)
[2020-04-24] MEDS: sennosides 8.6 mg Tablet 17.2 MG PO (20:38)
[2020-04-24] MEDS: HYDROcodone-acetaminophen 10-325 mg Tablet 1 TAB PO (20:40)
[2020-04-25] VITALS (9 sets, daily range): BP systolic 122–153; BP diastolic 73–85; PULSE 64–93; RESP 14–18; TEMP 36.5–37.4; O2SAT 90–100
[2020-04-25] MEDS: sodium chloride 0.9% 1,000 ML 75 ML IV ×2 (04:47→13:44)
[2020-04-25] MEDS: enoxaparin 40 mg/0.4 mL Syringe SUBCUT (04:48)
[2020-04-25] MEDS: HYDROcodone-acetaminophen 10-325 mg Tablet 1 TAB PO ×3 (04:48→23:34)
[2020-04-25 04:53] LABS: Basophils % 0.4 %; Eosinophils # 0.2 10^3/uL (0.0-0.8); Hematocrit 33.1 % (37.0-47.0); Hemoglobin 10.1 g/dL (11.5-15.3); Lymphocytes # 1.7 10^3/uL (0.8-4.8); Lymphocytes % 17.9 %; Mean Corpuscular HGB Conc 30.5 g/dL (30.0-36.0); Mean Corpuscular Hemoglobin 28.2 pg (28.0-34.0); Mean Corpuscular Volume 92.5 fL (81-99); Mean Platelet Volume 9.8 fL (7.4-10.4); Monocytes # 0.8 10^3/uL (0.2-0.9); Monocytes % 8.4 %; Neutrophils # 6.59 10^3/uL (1.8-7.7); Neutrophils % 70.6 %; Nucleated Red Blood Cells % 0 %; Platelet Count 221 10^3/cmm (130-400); Red Blood Count 3.58 10^6/uL (4.1-5.3); Red Cell Distribution Width 13.3 % (12.1-15.1); White Blood Count 9.4 10^3/uL (4.0-10.0)
[2020-04-25 05:17] LABS: Alanine Aminotransferase 14 U/L (0-33); Albumin Level 3.1 g/dL (3.5-5.2); Alkaline Phosphatase 69 IU/L (35-105); Anion Gap 11.7 (5-19); Aspartate Amino Transferase 20 U/L (0-32); Blood Urea Nitrogen 9 mg/dL (8-23); Calcium 7.9 mg/dL (8.5-10.5); Carbon Dioxide 25 mmol/L (22-29); Chloride 105 mmol/L (98-107); Creatinine Clr Calc Pharmacy 68.5829; Globulin 3.3 g/dL (1.3-4.6); Glomerular Filtration Rate 99.7 mL/min (90-130); Glucose 104 mg/dL (65-115); Magnesium 1.6 mg/dL (1.7-2.3); Osmolality Calculated 282 mOsm/kg (285-295); Potassium 3.7 mmol/L (3.5-5.1); Sodium 138 mmol/L (136-145); Total Bilirubin 0.3 mg/dL (0.15-1.2); Total Protein 6.4 g/dL (6.6-8.7)
[2020-04-25] MEDS: magnesium sulfate premix 2 GM/50 ML PIGGYBACK IV (08:22)
[2020-04-25] MEDS: levothyroxine 125 mcg Tablet PO (08:23)
[2020-04-25] MEDS: pantoprazole DR 40 mg Tablet PO ×2 (08:23→17:01)
[2020-04-25] MEDS: gabapentin 300 mg Capsule PO ×3 (08:24→23:35)
[2020-04-25] MEDS: atorvastatin 40 mg Tablet 80 MG PO (08:24)
[2020-04-25] MEDS: escitalopram 10 mg Tablet 20 MG PO (08:25)
[2020-04-25] MEDS: losartan 50 mg Tablet 100 MG PO (08:25)
[2020-04-25] MEDS: carvedilol 3.125 mg Tablet PO ×2 (08:25→17:01)
[2020-04-25] MEDS: docusate sodium 100 mg Capsule PO (08:25)
--- NOTE | 2020-04-25 08:54 | PC.SOCIAL ---
IMM Update Pg. 2 of IMM given and explained to patient. Copy provided to patient.
--- NOTE | 2020-04-25 09:00 | P.DS_ITS ---
Discharge Providers Date of Admission: 04/22/20 17:00 Date of Discharge: April 25, 2020 Attending Provider at Admission: Pawel Barreintos MD Attending Provider at Discharge: Pawel Barrientos MD Primary Care Provider: Pat Tovar APN Diagnoses at Discharge Discharge Diagnosis (1) Closed intertrochanteric fracture of left hip: Status: Acute Qualifiers: Encounter type: initial encounter Fracture alignment: displaced Qualified Code(s): S72.142A - Displaced intertrochanteric fracture of left femur, initial encounter for closed fracture (2) Dehydration with hyponatremia: Status: Acute (3) Chronic anemia: Status: Acute (4) Hypertension: Status: Acute (5) Dyslipidemia: Status: Acute (6) Obstructive sleep apnea: Status: Acute Reason for Visit Reason for Visit: LEFT HIP PAIN Hospital Course Discharge Summary: Patient had mechanical fall and presented with left hip fracture requiring surgical intervention. Patient has multiple medication allergies and was initially treated in ICU as it is the only place where fentanyl could have been administered. Post surgery patient was transferred to medical tovar and did okay with [place]. Patient reports that she has [place] at home and does not need any prescription. This morning patient reports feeling much better and wants to go home. She absolutely refuses to consider nursing home facility placement. She reports that she has enough help at home and we will also request home health. Discussed with patient's daughter yesterday at bedside who is in agreement and also reports that there are multiple family members that will make sure that patient gets care she needs. Patient will be discharged on Lovenox for DVT prophylaxis for 2 weeks. This morning patient denies shortness of breath or chest pain. Denies abdominal pain. Walker was ordered. Physical Exam Const: COMMON NORMALS: no acute distress and patient oriented x3 Resp: COMMON NORMALS: normal respiratory effort and clear to auscultation bilaterally AUSCULTATION: clear to auscultation bilaterally Cardio: COMMON NORMALS: regular rate, regular rhythm and S2 normal heart sound present RATE: regular rate RHYTHM: regular rhythm HEART SOUNDS: S2 normal heart sound present OTHER: No lower extremity edema GI: COMMON NORMALS: Normal to inspection, nondistended, normoactive bowel sounds present, Soft to palpation and non-tender PALPATION: Yes Soft to palpation Neuro: COMMON NORMALS: patient oriented x3 and no focal motor deficits Urinary Catheter Management^: Julio: Cath Placed During This Visit: yes, but has since been removed by the nurse Reason for Continuing Indwelling Catheter: Decision to DC Catheter Urinary Catheter Date of Insertion: 04/22/20 Urinary Catheter Time of Insertion: 17:08 Date Urinary Catheter Removed: 04/24/20 Time Urinary Catheter Discontinued: 16:44 Discharge Data Data Completed and Pending: Completed Studies During Hospitalization Category Date Time Status CT head wo con* [id number] Stat Cat Scan 04/22/20 15:53 Completed XR chest 1V iván ble [id number] Stat Exams 04/22/20 15:53 Completed XR hip LT 2-3V wo /w pel* [id number] Rout ine Exams 04/23/20 Completed XR hip LT 2-3V wo /w pel* [id number] Stat Exams 04/22/20 15:48 Completed Pending at discharge Category Date Time Status Complete Blood Co unt w/Auto AM LABS Lab 04/26/20 04:00 Ordered Complete Blood Co unt w/Auto AM LABS Lab 04/27/20 04:00 Ordered Labs from last 24 hours 04/25/20 04/25/20 04/24/20 04:08 04:08 10:28 WBC 9.4 10.7 H RBC 3.58 L 3.99 L Hgb 10.1 L 11.5 Hct 33.1 L 38.7 MCV 92.5 97.0 MCH 28.2 28.8 MCHC 30.5 29.7 L RDW 13.3 13.2 Plt Count 221 206 MPV 9.8 9.6 Neut % (Auto) 70.6 77.5 Lymph % (Auto) 17.9 13.6 [place] % (Auto) 8.4 7.0 Eos % (Auto) 2.0 0.7 Baso % (Auto) 0.4 0.7 Neut # (Auto) 6.59 8.27 H Lymph # (Auto) 1.7 1.5 [place] # (Auto) 0.8 0.8 Eos # (Auto) 0.2 0.1 Baso # (Auto) 0.0 0.1 Nucleated RBC % (a uto) 0 0 Nucleated RBCs # 0.0 0.0 Sodium 138 Potassium 3.7 Chloride 105 Carbon Dioxide 25 Anion Gap 11.7 BUN 9 Creatinine 0.6 GFR Calculation 99.7 Glucose 104 Calculated Osmolal ity 282 L Calcium 7.9 L Magnesium 1.6 L Total Bilirubin 0.3 AST 20 ALT 14 Alkaline Phosphata se 69 Total Protein 6.4 L Albumin 3.1 L Globulin 3.3 Vitals: Last Vital Signs Temp 99.4 F 04/25/20 07:49 Pulse 80 04/25/20 07:49 Resp 16 04/25/20 07:49 BP 122/78 04/25/20 08:25 Pulse Ox 92 04/25/20 07:49 Discharge Plan Discharge Patient Disposition: Home Health Service Condition: Stable Prescriptions: New docusate sodium 100 mg Capsule 100 mg PO BID Qty: 60 RF: 0 bisacodyl 5 mg Tablet,Delayed Release (Dr/Ec) 10 mg PO DAILY PRN (Reason: Constipation) Qty: 30 RF: 0 Lovenox 40 mg/0.4 mL Syringe 40 mg SUBCUT Q24H Qty: 14 RF: 0 sennosides [Senna Lax] 8.6 mg Tablet 17.2 mg PO BEDTIME Qty: 30 RF: 0 Continued atorvastatin 80 mg tablet 80 mg PO DAILY RF: 0 tizanidine 4 mg tablet 4 mg PO TID PRN (Reason: Muscle Spasm) RF: 0 clonazepam 0.5 mg tablet 1 mg PO BEDTIME RF: 0 clopidogrel 75 mg tablet 75 mg PO DAILY RF: 0 hydrocodone-acetaminophen 10-325 mg tablet 1 tab PO Q4H PRN (Reason: Pain) RF: 0 carvedilol 3.125 mg tablet 3.125 mg PO BID RF: 0 pantoprazole 40 mg tablet,delayed release (DR/EC) 40 mg PO BID RF: 0 levothyroxine 125 mcg tablet 125 mcg PO DAILY RF: 0 gabapentin 300 mg capsule 300 mg PO QID RF: 0 olmesartan 40 mg tablet 40 mg PO DAILY RF: 0 escitalopram oxalate 20 mg tablet 20 mg PO DAILY RF: 0 Discharge Orders: Discharge Order (Routine); Ordered 04/25/20 Ordered By: Pawel Barrientos Other Ambulatory Orders: DME: Maged (Order) Location: None Selected Ordered By: Pawel Barrientos Referrals: Jailyn Asher MD [Physician] - 2 weeks Tovar,SAMREEN Stewart [Primary Care Provider] - 4-7 days Discharge Diet: Usual diet Discharge Activity: Increase activity as tolerated Activity Restrictions/Additional Instructions: Please call your doctor or present to emergency department if your condition worsens or you develop diarrhea, lightheadedness, fatigue or see blood in your stool or black stool. Since you are getting blood thinner please avoid any cuts, bumps or falls. 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
--- NOTE | 2020-04-25 10:51 | PC.NURSE ---
patient rated pain in left hip 10/10 during PT
[2020-04-25] MEDS: tizanidine 4 mg Tablet PO (11:42)
--- NOTE | 2020-04-25 13:01 | PC.NURSE ---
@1250 patient was found by hand sign writer unresponsive in chair. blood sugar is 122 and blood pressure 61/41. at 1253 blood pressure is 68/47.
[2020-04-25] MEDS: naloxone 0.4 mg/ml SDV 0.1 MG IVP (13:04)
--- NOTE | 2020-04-25 13:14 | PC.NURSE ---
1250 rapid response called because patient was found unresponsive in chair.
--- NOTE | 2020-04-25 13:25 | PC.NURSE ---
notified Daughter Shannan of rapid response.
[2020-04-25] MEDS: potassium chloride premix 40 MEQ/100 ML PREMIX 25 MEQ IV (13:38)
--- NOTE | 2020-04-25 14:42 | P.PN_ITS ---
Subjective Subjective: Interval history: The patient was ready for discharge to home. She is refusing detention. Upon my entry into the room, rapid response had to be called as she was quite somnolent in her chair. She will require further observation. Medications: Reviewed: Yes Vitals/I&O/Wt Last Vital Signs Temp 98.3 F 04/25/20 13:15 Pulse 66 04/25/20 13:15 Resp 18 04/25/20 13:15 BP 133/80 04/25/20 13:42 Pulse Ox 97 04/25/20 13:15 04/24/20 04/25/20 04/25/20 22:59 06:59 14:59 Intake Total 1139.5 / 1479.5 862.5 / 2342.0 1011.25 / 1011.25 Output Total 950 / 1750 850 / 2600 Balance 189.5 / -270.5 12.5 / -258.0 1011.25 / 1011.25 Physical Exam Const: COMMON NORMALS: no acute distress, no limitations, healthy appearing and well nourished GENERAL APPEARANCE: well developed HENMT: COMMON NORMALS: normocephalic, atraumatic and Normal external nose present HEAD & SCALP: normal to inspection, normocephalic and atraumatic FACE & SINUS: normal facial exam and face symmetric NOSE: Normal external nose present and Normal nares present Eye: COMMON NORMALS: no scleral icterus ALIGNMENT: Yes alignment normal EYELID: eyelids normal Chest: COMMONS NORMALS: normal inspection of the chest and normal palpation of entire chest wall Resp: COMMON NORMALS: normal respiratory effort, No retractions and No use of accessory muscles EFFORT & INSPECTION: Yes symmetric chest movement Cardio: HEART SOUNDS: no click, no gallops, no murmurs, no rubs and abnormal split S2 OTHER: No lower extremity edema Extremity: RIGHT LOWER EXTREMITY: Yes hip joint LEFT LOWER EXTREMITY: Yes hip joint Left hip: Yes inspection (Patient is up in a chair. A rapid response was called. There is no significant swelling, erythema, or evidence of infection.), Yes ROM (Not evaluated.) and Yes neurovascular exam (Intact.) Skin: COMMON NORMALS: no rashes or lesions noted, turgor normal, no jaundice, no petechiae and no mottling GENERAL SKIN EXAM: no rashes or lesions noted and turgor normal Urinary Catheter Management^: Julio: Cath Placed During This Visit: yes, but has since been removed by the nurse Reason for Continuing Indwelling Catheter: Decision to DC Catheter Urinary Catheter Date of Insertion: 04/22/20 Urinary Catheter Time of Insertion: 17:08 Date Urinary Catheter Removed: 04/24/20 Time Urinary Catheter Discontinued: 16:44 Data : 04/25/20 04:08 04/25/20 04:08 A&P Assessment and plan (1) Closed intertrochanteric fracture of left hip: Patient is status post open reduction internal fixation left intertrochanteric hip fracture. Also, I have advised her that she would likely benefit from detention for a few days as she is anticipating care via her mother and sister. Previously, the patient agreed to detention, however, she has now noted that she will not go. She refuses to go to detention. After her rapid response today, she will require an additional night in the hospital for evaluation. Education will also be given regarding pain medication and appropriate drugs. She will return to her normal pain management schedule. I will not be giving her any additional narcotic medication. Status: Acute Qualifiers: Encounter type: initial encounter Fracture alignment: displaced Qualified Code(s): S72.142A - Displaced intertrochanteric fracture of left femur, initial encounter for closed fracture Attestations Medical Necessity Statement*: Patient will require overnight observation given the rapid response this afternoon. 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
[2020-04-25 15:44] LABS: Glucose Point of Care 122 mg/dL (70-110)
--- NOTE | 2020-04-25 17:36 | PC.NURSE ---
Patient much more awake alert and oriented, got up to bedside commode, X1 minimum assist, X1 BM soft in characteristic, assisted back to bed, call light in reach, SCD's in place, Supper tray provided.
[2020-04-25] MEDS: CLONazepam 0.5 mg Tablet 1 MG PO (23:36)
[2020-04-26] VITALS: BP 148/84; PULSE 82; RESP 18; TEMP 36.9; O2SAT 98
[2020-04-26 00:51] VITALS: PULSE 68; RESP 18; O2SAT 96
[2020-04-26] MEDS: sodium chloride 0.9% 1,000 ML 75 ML IV (03:16)
[2020-04-26 03:20] LABS: Basophils # 0.1 10^3/uL (0.0-0.1); Basophils % 0.9 %; Eosinophils # 0.2 10^3/uL (0.0-0.8); Eosinophils % 2.4 %; Hematocrit 30.1 % (37.0-47.0); Hemoglobin 9.4 g/dL (11.5-15.3); Lymphocytes # 1.8 10^3/uL (0.8-4.8); Lymphocytes % 22.4 %; Mean Corpuscular HGB Conc 31.2 g/dL (30.0-36.0); Mean Corpuscular Hemoglobin 29.1 pg (28.0-34.0); Mean Corpuscular Volume 93.2 fL (81-99); Mean Platelet Volume 9.6 fL (7.4-10.4); Monocytes # 0.6 10^3/uL (0.2-0.9); Neutrophils # 5.27 10^3/uL (1.8-7.7); Neutrophils % 65.4 %; Nucleated Red Blood Cells % 0 %; Platelet Count 209 10^3/cmm (130-400); Red Blood Count 3.23 10^6/uL (4.1-5.3); Red Cell Distribution Width 13.2 % (12.1-15.1)
[2020-04-26 04:00] VITALS: BP 133/78; PULSE 81; RESP 18; TEMP 37.2; O2SAT 96
[2020-04-26] MEDS: HYDROcodone-acetaminophen 10-325 mg Tablet 1 TAB PO ×2 (06:30→10:45)
[2020-04-26] MEDS: enoxaparin 40 mg/0.4 mL Syringe SUBCUT (06:30)
[2020-04-26 07:45] VITALS: BP 132/75; PULSE 78; RESP 17; TEMP 36.6; O2SAT 92
[2020-04-26 08:46] VITALS: BP 132/75
[2020-04-26] MEDS: losartan 50 mg Tablet 100 MG PO (08:46)
[2020-04-26] MEDS: docusate sodium 100 mg Capsule PO (08:47)
[2020-04-26] MEDS: gabapentin 300 mg Capsule PO (08:47)
[2020-04-26] MEDS: levothyroxine 125 mcg Tablet PO (08:47)
[2020-04-26] MEDS: pantoprazole DR 40 mg Tablet PO (08:47)
[2020-04-26] MEDS: escitalopram 10 mg Tablet 20 MG PO (08:47)
[2020-04-26] MEDS: carvedilol 3.125 mg Tablet PO (08:47)
[2020-04-26] MEDS: atorvastatin 40 mg Tablet 80 MG PO (08:47)
--- NOTE | 2020-04-26 10:32 | P.PN_ITS ---
Subjective Subjective: Interval history: Patient was about to be discharged home when she became lethargic. There was a concern that patient took her home medications which she had at bedside. Patient was given 0.2 mg Narcan yesterday with minimal improvement in her mental status. This morning patient reports feeling much better and wants to go home. Reports that yesterday when she was getting muscle relaxant she noticed that pill did not look the same she takes at home. I have discussed case with pharmacy to check and make sure patient did not receive other medication by mistake which I doubt. Medications: Reviewed: Yes Vitals/I&O/Wt Last Vital Signs Temp 97.9 F 04/26/20 07:45 Pulse 78 04/26/20 07:45 Resp 17 04/26/20 07:45 BP 132/75 04/26/20 08:46 Pulse Ox 92 04/26/20 07:45 04/25/20 04/26/20 04/26/20 22:59 06:59 14:59 Intake Total 100 / 1161.25 1000 / 2161.25 360 / 360 Output Total 300 / 300 700 / 1000 300 / 300 Balance -200 / 861.25 300 / 1161.25 60 / 60 Physical Exam Const: COMMON NORMALS: no acute distress and patient oriented x3 Resp: COMMON NORMALS: normal respiratory effort and clear to auscultation bilaterally AUSCULTATION: clear to auscultation bilaterally Cardio: COMMON NORMALS: regular rate, regular rhythm and S2 normal heart sound present RATE: regular rate RHYTHM: regular rhythm HEART SOUNDS: S2 normal heart sound present OTHER: No lower extremity edema GI: COMMON NORMALS: Normal to inspection, nondistended, normoactive bowel malka nds present, Soft to palpation and non-tender PALPATION: Yes Soft to palpation Neuro: COMMON NORMALS: patient oriented x3 and no focal motor deficits Urinary Catheter Management^: Julio: Cath Placed During This Visit: yes, but has since been removed by the nurse Reason for Continuing Indwelling Catheter: Decision to DC Catheter Urinary Catheter Date of Insertion: 04/22/20 Urinary Catheter Time of Insertion: 17:08 Date Urinary Catheter Removed: 04/24/20 Time Urinary Catheter Discontinued: 16:44 Data : 04/26/20 03:00 04/25/20 04:08 A&P Assessment and plan (1) Closed intertrochanteric fracture of left hip: Status: Acute Qualifiers: Encounter type: initial encounter Fracture alignment: displaced Qualified Code(s): S72.142A - Displaced intertrochanteric fracture of left femur, initial encounter for closed fracture (2) Dehydration with hyponatremia: Status: Acute (3) Chronic anemia: Normocytic without evidence of iron deficiency. Status: Acute (4) Hypertension: Status: Acute (5) Dyslipidemia: Status: Acute (6) Obstructive sleep apnea: Status: Acute Additional A&P Information PLAN: We will proceed with discharge. Please refer to DC summary performed yesterday. Attestations Medical Necessity Statement*: Patient is being dismissed. 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
[2020-04-26 10:58] VITALS: BP 132/75
--- NOTE | 2020-04-26 11:12 | PC.CHAP ---
Pastoral Care Encounter/Spiritual Assessment Type of Contact [] Declined business area director visit [] Patient/Family/Request visit [] Outpatient visit [] Follow-up visit [] Physician referral [] Code/Alert [x] Routine visit [] Staff referral [] Actively dying [] Patient sleeping [] Family support [] [] Out of room [] Palliative care [] [] Receiving care in room [] Pre-surgical visit [] Trauma [] Long length of stay [] ICU visit [] Other: Relational/Emotional Strength [x] Patient feels connected with others/family/visitors/staff [] Distress [] Loneliness/isolation [] Abandonment Spirituality of Patient [x] Person of Mai [x] Attends Voodoo of their Mai [x] Believes in Prayer [x] Reads Bible or Advent materials [] There are Spiritual issues to be addressed [employer] Interventions [x] Prayer [x] Active listening [x] Non-anxious presence [x] Spiritual/emotional support [] Crisis/trauma care [] Spiritual counseling [] Bereavement support [] Provided bereavement packet [] Provided Bible/devotional materials [] Provided toy/stuffed animal, coloring book to patient or family member [] Provided Communion [] Anointing/[place] [] Salvation [x] Completed spiritual assessment [] Other: Impact on Illness or Injury [] Angry [] Fearful [] Anxious [] Often cries [] Exhaustion [] Unable to work [] Unable to attend spiritism [] Unable to walk/stand [] Unable to read [] Unable to drive [] Unable to eat/drink [] Unable to sleep [] Unable to be with family [] Patient intubated [x] Other: Summary Patient professed her mai in [place] and attends fellowship spiritism at [facility] in [place]. Time spent with patient 10 minutes
== END 2020-04-26 11:43 | disposition home health service (06) | DRG 481 ==
LOC: ER 17:02 → MEDSURG 17:32 → ICU 21:20 → MEDSURG 04-24 16:21
PROVIDERS: Emergency Medicine; Specialist; Admitting Provider Internal Medicine; PCP Nurse Practitioner Family; Visit Provider Internal Medicine
PROC: 0SSB04Z Reposition Left Hip Joint with Internal Fixation Device, Open Approach (ICD-10-PCS; CPT 27245; principal; 2020-04-23 14:00)
DX: S72.142A Displaced intertrochanteric fracture of left femur, initial encounter for closed fracture (principal); E87.1 Hypo-osmolality and hyponatremia; E86.0 Dehydration; G47.33 Obstructive sleep apnea (adult) (pediatric); E78.5 Hyperlipidemia, unspecified; I10 Essential (primary) hypertension; D64.9 Anemia, unspecified; Z79.02 Long term (current) use of antithrombotics/antiplatelets; I25.10 Atherosclerotic heart disease of native coronary artery without angina pectoris; W01.0XXA Fall on same level from slipping, tripping and stumbling without subsequent striking against object, initial encounter; Y93.89 Activity, other specified; Y92.512 Supermarket, store or market as the place of occurrence of the external cause; G89.29 Other chronic pain; M54.9 Dorsalgia, unspecified; Z86.73 Personal history of transient ischemic attack (TIA), and cerebral infarction without residual deficits; Z86.14 Personal history of Methicillin resistant Staphylococcus aureus infection; E11.42 Type 2 diabetes mellitus with diabetic polyneuropathy; Z87.891 Personal history of nicotine dependence
CPT/HCPCS: 12345; 36415; 36416; 51702; 70450; 71045; 73502; 76000; 80053; 81001; 82962; 83735; 85025; 85610; 85730; 93005; 94660; 96372; 96375; 97110; 97116; 97161; 97166; 97530; 97535; 99283; A9281; C1713; J0131; J0330; J0696; J1650; J2310; J2405; J2704; J2710; J3010; J3370; J3475; J3480; J3490; J7030; J7050

== ENCOUNTER 2020-05-09 10:40 | Outpatient (CLI) | payer MEDICARE, SELFPAY ==
--- NOTE | 2020-05-09 10:46 | XRR_ITS ---
PROCEDURE INFORMATION: Exam: XR Left Hip with Pelvis when Performed Exam date and time: 05/09/2020 11:39 AM Age: 69 years old Clinical indication: Condition or disease; Other: Post operative; Prior surgery; Surgery date: Post-operative (0-2 days) TECHNIQUE: Imaging protocol: XR Left hip with pelvis when performed. Views: 2 or 3 views. COMPARISON: OT XR hip LT 2-3V wo/w pel* [id number] 04/23/2020 3:53 PM FINDINGS: Bones/joints: Status post left femoral ORIF, normal alignment. Soft tissues: Unremarkable. XR/XR hip LT 2-3V wo/w pel* [id number] IMPRESSION: Status post ORIF.
== END 2020-05-09 10:41 | disposition home or self-care (01) ==
LOC: RAD 10:44
PROVIDERS: PCP Nurse Practitioner Family; Visit Provider Specialist
DX: Z98.890 Other specified postprocedural states (principal)
CPT/HCPCS: 73502

== ENCOUNTER 2020-06-12 13:55 | Inpatient (IN) | payer MEDICARE, SELFPAY ==
[2020-06-12] VITALS (18 sets, daily range): BP systolic 121–157; BP diastolic 73–89; PULSE 72–88; RESP 18–42; TEMP 36.7–37.8; O2SAT 88–95; BMI 27.3
--- NOTE | 2020-06-12 14:37 | XR_ITS ---
WS: [id number] EXAM: AP CHEST: PORTABLE UPRIGHT DATE OF EXAM: 06/12/2020, 1455 hours COMPARISON: Chest x-ray from 04/22/2020 HISTORY: Patient is 69 years old with shortness of breath. Positive for Covid 19 infection. Fever, nausea and vomiting. FINDINGS: The cardiac silhouette is normal in size. The mediastinal contours are normal. The pulmonary vas cularity is hard to determine secondary to the degree of infiltrate. Chronic lung changes seen. Ther e has been interval development of interstitial and patchy alveolar infiltrates within both lungs. T here is no effusion or pneumothorax. No acute bony abnormality is seen. XR/XR chest 1V portable [id number] IMPRESSION: Chronic lung changes. Interval development of interstitial and patchy alveolar infiltrates bilaterally suggesting bilateral pneumonia.
--- NOTE | 2020-06-12 14:37 | ECG_ITS ---
[facility] Test Date: 2020-06-12 Pat Name: Steffanie Angelo Department: Room: Gender: Female [place] Operator: : 1950 Requested By: Dinorah Tay Order Number: [id number] Cata MD: Lizzie Rivera M.D. Measurements Intervals [place] Rate: 90 P: 79 AL: 204 QRS: -11 QRSD: 79 T: 48 QT: 328 QTc: 403 Interpretive Statements SINUS RHYTHM Compared to ECG 04/22/2020 17:33:32 First degree AV block no longer present Electronically Signed On 06-12-2020 22:27:45 CDT by Lizzie Rivera M.D. [email or web address]
[2020-06-12 15:02] LABS: Basophils # 0.1 10^3/uL (0.0-0.1); Basophils % 0.2 %; Hematocrit 38.1 % (37.0-47.0); Hemoglobin 12.3 g/dL (11.5-15.3); Lymphocytes # 1.2 10^3/uL (0.8-4.8); Lymphocytes % 5.6 %; Mean Corpuscular HGB Conc 32.3 g/dL (30.0-36.0); Mean Corpuscular Hemoglobin 27.7 pg (28.0-34.0); Mean Corpuscular Volume 85.8 fL (81-99); Mean Platelet Volume 9.3 fL (7.4-10.4); Monocytes # 1.1 10^3/uL (0.2-0.9); Monocytes % 5.2 %; Neutrophils # 17.77 10^3/uL (1.8-7.7); Neutrophils % 87.2 %; Nucleated Red Blood Cells % 0 %; Platelet Count 305 10^3/cmm (130-400); Red Blood Count 4.44 10^6/uL (4.1-5.3); Red Cell Distribution Width 14.4 % (12.1-15.1); White Blood Count 20.4 10^3/uL (4.0-10.0)
[2020-06-12 15:11] LABS: INR 0.95 (0.8-1.2)
[2020-06-12 15:12] LABS: Partial Thromboplastin Time 26.3 SECONDS (23.9-36.7); Troponin T (5th) Once 11 ng/L (0-10)
[2020-06-12 15:15] LABS: D Dimer 2.73 ug/mIFEU (0-0.59)
[2020-06-12 15:17] LABS: Fibrinogen 822 mg/dL (174-498)
--- NOTE | 2020-06-12 15:18 | W.ED.SOB ---
HPI - SOB/Dyspnea General: Chief Complaint: Shortness of Breath/Dyspnea Stated Complaint: COVID + Time Seen by Provider: 06/12/20 14:27 Source: patient and RN notes reviewed History of Present Illness: HPI Narrative: 69-year-old female tested positive for COVID-19 Thursday which was 3 days ago at [facility]. Worse today unable to care for herself or do activities of daily living without becoming severely short of breath. Arrived by EMS. Complains of nonproductive cough myalgia subjective fever. Having a lot of diarrhea as well. Associated symptoms: Reports fever(s); Deny abdominal pain, chest pain, nausea, polyuria or vomiting Review of Systems General: Reports: 10 or more systems reviewed and unremarkable except in HPI and below Const: Reports: fever(s), chills, body aches and change in appetite Eyes: Denies: change in vision ENMT: Denies: throat pain Card: Denies: chest pain Resp: Reports: dyspnea and non-productive cough GI: Reports: diarrhea and change in bowel habits; Denies: abdominal pain, nausea or vomiting : Denies: difficulty voiding Musc: Reports: muscle weakness Skin/Breast: Denies: rash Neuro: Reports: headache(s) Psych: Denies: hopelessness or suicidal ideation Endo: Denies: polyuria Oneil/Lymph: Denies: easy bruising or easy bleeding All/Imm: Denies: urticaria PFSH ED PFSH: Medical History (Updated 06/12/20 @ 16:01 by Dinorah Tay MD) Abnormal carotid duplex scan Atherosclerotic heart disease of [place] coronary artery without angina pectoris Benign essential HTN Carotid artery stenosis, asymptomatic Chronic anemia Chronic back pain Coronary artery disease Dyslipidemia Dyslipidemia (high LDL; low HDL) History of diabetes mellitus History of MRSA infection History of TIA (transient ischemic attack) Hypertension Obstructive sleep apnea Peripheral neuropathy Surgical History H/O tubal ligation History of bladder suspension procedure History of cholecystectomy Hx of elbow surgery Family History Mother Cancer Uterine Father CAD (coronary artery disease) Social History Smoking and tobacco status: former smoker Quit status (tobacco): has quit using tobacco Year quit tobacco: Prior to 1994 Alcohol intake: never Household members: other Details: . Lives with her girlfriend Physical Exam Const: COMMON NORMALS: no acute distress, patient oriented x3, alert and well nourished GENERAL APPEARANCE: cooperative and well kempt HENMT: COMMON NORMALS: normocephalic and Normal external nose present HEAD & SCALP: normocephalic NOSE: Normal external nose present MOUTH: no trismus Eye: COMMON NORMALS: EOMs intact bilaterally and conjunctivae normal CONJUNCTIVA: Yes conjunctivae normal Neck/C-Spine: COMMON NORMALS: full ROM, no lymphadenopathy and supple CERVICAL SPINE: Yes cervical ROM normal Lymph: LYMPHATIC: no lymphadenopathy noted Resp: COMMON NORMALS: normal respiratory effort, No retractions and No use of accessory muscles EFFORT & INSPECTION: Yes able to speak in complete sentences AUSCULTATION: crackles Cardio: COMMON NORMALS: regular rate and regular rhythm RATE: regular rate RHYTHM: regular rhythm GI: COMMON NORMALS: Normal to inspection, nondistended, normoactive bowel sounds present, Soft to palpation, non-tender and no masses INSPECTION: Yes normal to inspection AUSCULTATION: Yes normoactive bowel sounds PALPATION: Yes Soft to palpation, No Guarding due to palpation present (GI) and No Rigid due to palpation Back/Pelvis: OTHER: Normal range of motion Extremity: GENERAL: Yes normal exam except as noted Neuro: COMMON NORMALS: patient oriented x3 and CN's II-XII intact bilaterally SENSORIUM/ORIENTATION: Yes alert SPEECH: speech normal Psych: COMMON NORMALS: mental status grossly normal APPEARANCE: Yes well kempt Skin: COMMON NORMALS: no rashes or lesions noted GENERAL SKIN EXAM: no rashes or lesions noted Course Vital Signs: Vital signs: Vital Signs Temperature 99.6 F 06/12/20 14:23 Pulse Rate 88 06/12/20 14:23 Respiratory Rate 22 H 06/12/20 14:23 Blood Pressure 128/80 06/12/20 14:23 Pulse Oximetry 90 06/12/20 14:46 MDM - SOB/Dyspnea MDM Narrative: Medical decision making narrative: 69-year-old female without underlying lung problems positive for COVID-19 tested 3 days ago now worse requiring supplemental oxygen unable to take care of self at home. Will discuss with hospitalist service. Needs admission. d/w Dr Boothe will admit to covid unit Lab Data: Attestation: I reviewed the patient's lab results. Labs: Lab Results 06/12/20 06/12/20 06/12/20 Range/Units 14:20 14:20 14:20 WBC 20.4 H (4.0-10.0) 10^3/ uL RBC 4.44 (4.1-5.3) 10^6/u L Hgb 12.3 (11.5-15.3) g/dL Hct 38.1 (37.0-47.0) % MCV 85.8 (81-99) fL MCH 27.7 L (28.0-34.0) pg MCHC 32.3 (30.0-36.0) g/dL RDW 14.4 (12.1-15.1) % Plt Count 305 (130-400) 10^3/c mm MPV 9.3 (7.4-10.4) fL Neut % (Auto) 87.2 % Lymph % (Auto) 5.6 % [place] % (Auto) 5.2 % Eos % (Auto) 0.0 % Baso % (Auto) 0.2 % Neut # (Auto) 17.77 H (1.8-7.7) 10^3/u L Lymph # (Auto) 1.2 (0.8-4.8) 10^3/u L [place] # (Auto) 1.1 H (0.2-0.9) 10^3/u L Eos # (Auto) 0.0 (0.0-0.8) 10^3/u L Baso # (Auto) 0.1 (0.0-0.1) 10^3/u L Nucleated RBC % (a uto) 0 % Nucleated RBCs # 0.0 /100WBC PT 12.90 (12.1-14.9) SECO NDS INR 0.95 (0.8-1.2) APTT 26.3 (23.9-36.7) SECO NDS Fibrinogen 822 H (174-498) mg/dL D-Dimer 2.73 H (0-0.59) ug/mIFE U Specimen Type Sample Site ABG pH (7.35-7.45) ABG pCO2 (35-45) mmHg ABG pO2 (80.0-100.0) mmH g ABG HCO3 (22-26) mmol/L ABG Base Excess (-2.0-2.0) mmol/ L Wilian Test Hematocrit (37-47) % O2 Delivery Device O2 Liters/Min % FiO2 % Landcare Officer ID Sodium 130 L (136-145) mmol/L Potassium 4.1 (3.5-5.1) mmol/L Chloride 94 L (98-107) mmol/L Carbon Dioxide 22 (22-29) mmol/L Anion Gap 18.1 (5-19) BUN 17 (8-23) mg/dL Creatinine 0.7 (0.5-0.9) mg/dL GFR Calculation 83.5 L (90-130) mL/min Glucose 101 (65-115) mg/dL Calculated Osmolal ity 267 L (285-295) mOsm/k g Lactic Acid (0.5-2.2) mmol/L Calcium 8.9 (8.5-10.5) mg/dL Magnesium 2.0 (1.7-2.3) mg/dL Total Bilirubin 0.7 (0.15-1.2) mg/dL AST 193 H (0-32) U/L ALT 186 H (0-33) U/L Alkaline Phosphata se 210 H (35-105) IU/L Lactate Dehydrogen ase 510 H (135-214) U/L Creatine Kinase 33 (26-192) U/L Troponin T Gen 5 n g/L (0-10) ng/L NT-Pro-B Natriuret Pep 642 H (0-125) pg/mL Total Protein 7.3 (6.6-8.7) g/dL Albumin 3.3 L (3.5-5.2) g/dL Globulin 4.0 (1.3-4.6) g/dL 06/12/20 06/12/20 06/12/20 Range/Units 14:20 14:20 15:25 WBC (4.0-10.0) 10^3/ uL RBC (4.1-5.3) 10^6/u L Hgb (11.5-15.3) g/dL Hct (37.0-47.0) % MCV (81-99) fL MCH (28.0-34.0) pg MCHC (30.0-36.0) g/dL RDW (12.1-15.1) % Plt Count (130-400) 10^3/c mm MPV (7.4-10.4) fL Neut % (Auto) % Lymph % (Auto) % [place] % (Auto) % Eos % (Auto) % Baso % (Auto) % Neut # (Auto) (1.8-7.7) 10^3/u L Lymph # (Auto) (0.8-4.8) 10^3/u L [place] # (Auto) (0.2-0.9) 10^3/u L Eos # (Auto) (0.0-0.8) 10^3/u L Baso # (Auto) (0.0-0.1) 10^3/u L Nucleated RBC % (a uto) % Nucleated RBCs # /100WBC PT (12.1-14.9) SECO NDS INR (0.8-1.2) APTT (23.9-36.7) SECO NDS Fibrinogen (174-498) mg/dL D-Dimer (0-0.59) ug/mIFE U Specimen Type Arterial Sample Site Radial, right ABG pH 7.51 H (7.35-7.45) ABG pCO2 28.1 L (35-45) mmHg ABG pO2 55.5 L (80.0-100.0) mmH g ABG HCO3 22.3 (22-26) mmol/L ABG Base Excess 0.1 (-2.0-2.0) mmol/ L Wilian Test Pos Hematocrit 37.0 (37-47) % O2 Delivery Device Nc O2 Liters/Min 4.0 % FiO2 36.0 % Landcare Officer ID [place] Sodium (136-145) mmol/L Potassium (3.5-5.1) mmol/L Chloride (98-107) mmol/L Carbon Dioxide (22-29) mmol/L Anion Gap (5-19) BUN (8-23) mg/dL Creatinine (0.5-0.9) mg/dL GFR Calculation (90-130) mL/min Glucose (65-115) mg/dL Calculated Osmolal ity (285-295) mOsm/k g Lactic Acid 2.0 (0.5-2.2) mmol/L Calcium (8.5-10.5) mg/dL Magnesium (1.7-2.3) mg/dL Total Bilirubin (0.15-1.2) mg/dL AST (0-32) U/L ALT (0-33) U/L Alkaline Phosphata se (35-105) IU/L Lactate Dehydrogen ase (135-214) U/L Creatine Kinase (26-192) U/L Troponin T Gen 5 n g/L 11 H (0-10) ng/L NT-Pro-B Natriuret Pep (0-125) pg/mL Total Protein (6.6-8.7) g/dL Albumin (3.5-5.2) g/dL Globulin (1.3-4.6) g/dL Imaging Data^: CXR: Radiologist's impression: [address] [place] [address] XRay Report Signed Patient: Steffanie Angelo #: [id number] : 2[facility]#:[id number] Age/Sex: 69 / FADM Date: 06/12/20 Loc: ERRoom/Bed: Attending Dr: Ordering Provider/Ordering MD: Dinorah Tay MD Date of Service: 06/12/20 Procedure(s): XR chest 1V portable [id number] Accession Number(s): [id number] Report Number: [id number] WS: [id number] EXAM: AP CHEST: PORTABLE UPRIGHT DATE OF EXAM: 06/12/2020, 1455 hours COMPARISON: Chest x-ray from 04/22/2020 HISTORY: Patient is 69 years old with shortness of breath. Positive for Covid 19 infection. Fever, nausea and vomiting. FINDINGS: The cardiac silhouette is normal in size. The mediastinal contours are normal. The pulmonary vascularity is hard to determine secondary to the degree of infiltrate. Chronic lung changes seen. There has been interval development of interstitial and patchy alveolar infiltrates within both lungs. There is no effusion or pneumothorax. No acute bony abnormality is seen. XR/XR chest 1V portable [id number] IMPRESSION: Chronic lung changes. Interval development of interstitial and patchy alveolar infiltrates bilaterally suggesting bilateral pneumonia. Dictated By:Deonte Herr MD Signed By:Deonte Herr MDSigned Date/Time:06/12/201507 DD/ 150 Discharge Plan Discharge Patient Disposition: Admitted As Inpatient Clinical Impression: COVID-19, Dyspnea Condition: Fair Prescriptions: No Action azithromycin 250 mg tablet See Rx Instructions .ROUTE .COMPLEX RF: 0 dexamethasone 2 mg tablet 6 mg PO BID RF: 0 Vitamin D2 1,250 mcg (50,000 unit) capsule 50,000 unit PO Q7D RF: 0 hydroxychloroquine 200 mg tablet 200 mg PO BID RF: 0 Vitamin C 1 tab PO DAILY RF: 0 zinc 1 tab PO DAILY RF: 0 atorvastatin 80 mg tablet 80 mg PO BEDTIME RF: 0 tizanidine 4 mg tablet 4 mg PO TID PRN (Reason: Muscle Spasm) RF: 0 clonazepam 0.5 mg tablet 0.25 - 0.5 mg PO BID PRN (Reason: UNKNOWN) RF: 0 clopidogrel 75 mg tablet 75 mg PO DAILY RF: 0 hydrocodone-acetaminophen 10-325 mg tablet 1 - 2 tab PO QID MDD 8 TABS PRN (Reason: Pain) RF: 0 carvedilol 3.125 mg tablet 3.125 mg PO BID RF: 0 pantoprazole 40 mg tablet,delayed release (DR/EC) 40 mg PO BID RF: 0 levothyroxine 125 mcg tablet 125 mcg PO DAILY RF: 0 gabapentin 300 mg capsule 300 mg PO QID RF: 0 olmesartan 40 mg tablet 40 mg PO DAILY RF: 0 escitalopram oxalate 20 mg tablet 20 mg PO DAILY RF: 0 sennosides [Senna Lax] 8.6 mg Tablet 17.2 mg PO BEDTIME Qty: 30 RF: 0 docusate sodium 100 mg Capsule 100 mg PO BID Qty: 60 RF: 0 bisacodyl 5 mg Tablet,Delayed Release (Dr/Ec) 10 mg PO DAILY PRN (Reason: Constipation) Qty: 30 RF: 0 Referrals: Tovar,SAMREEN Stewart [Primary Care Provider] - Coding Level of Care Code ED Pourer Buggy Ladle for Chg Fwd Exam Comprehensive
[2020-06-12 15:21] LABS: Alanine Aminotransferase 186 U/L (0-33); Albumin Level 3.3 g/dL (3.5-5.2); Alkaline Phosphatase 210 IU/L (35-105); Anion Gap 18.1 (5-19); Aspartate Amino Transferase 193 U/L (0-32); Blood Urea Nitrogen 17 mg/dL (8-23); Calcium 8.9 mg/dL (8.5-10.5); Carbon Dioxide 22 mmol/L (22-29); Chloride 94 mmol/L (98-107); Creatine Phosphokinase 33 U/L (26-192); Glomerular Filtration Rate 83.5 mL/min (90-130); Glucose 101 mg/dL (65-115); Lactate Dehydrogenase 510 U/L (135-214); NT Pro B Type Natriuretic Pept 642 pg/mL (0-125); Osmolality Calculated 267 mOsm/kg (285-295); Potassium 4.1 mmol/L (3.5-5.1); Sodium 130 mmol/L (136-145); Total Bilirubin 0.7 mg/dL (0.15-1.2); Total Protein 7.3 g/dL (6.6-8.7)
[2020-06-12 15:38] LABS: ABG PCO2 28.1 mmHg (35-45); ABG PH Result 7.51 (7.35-7.45); Base Excess ABG 0.1 mmol/L (-2.0-2.0); Blood Gas Allen Test Pos; Blood Gas Operator Identificat MONRO; Blood Gas Sample Site Radial, right; Blood Gas Sample Type Arterial; HCO3 ABG 22.3 mmol/L (22-26); Oxygen Device NC; PO2 ABG 55.5 mmHg (80.0-100.0)
[2020-06-12 16:19] LABS: Procalcitonin 0.14 ng/mL (0-0.5)
--- NOTE | 2020-06-12 17:01 | P.HP_ITS ---
Providers/Chief Complaint Primary Care Provider: Pat Tovar APN Chief Complaint: COVID + History of Present Illness Steffanie Angelo is a 69 year old female with past medical history of hypertension, CAD status post stent, hypothyroidism, asthma, came in with chief complaint of progressively worsening shortness of breath, cough ,headache, intermittent fever with chills, nausea vomiting, multiple episodes of watery diarrhea, loss of sme ll and taste started started last Thursday. She went to a nearby primary care clinic on Thursday when she was diagnosed with COVID pneumonia. She was sent to home on hydroxychloroquine, azithromycin, dexamethasone by her primary care physician. Which she was taking at home upon further worsening of the symptoms she decided to come to the ER. In ER she is currently requiring 5 L of oxygen through nasal cannula to maintain a saturation around 92%. Further work-up in the ER was done which has shown leukocytosis 20 t , serum fibrinogen 822 , d-dimer 2.7 , elevated AST ALT (monitor AST ALT as we are starting the patient on REM) , elevated serum ferritin ( 3629) , elevated LDH, ( 510) , interleukin-6: Pending, baseline troponin is 11, lactic acid is 2. ABG: pH: 7.51, PCO2: 28, PO2: 55 at FiO2 of 36%( p/f ) X-ray chest: Bilateral diffuse airspace. Chronic lung changes. EKG: Sinus rhythm with first-degree AV block. Review of Systems General: Reports: 10 or more systems reviewed and unremarkable except in HPI and below Eyes: Denies: change in vision or blurry vision ENMT: Denies: mouth pain or swelling of lips/tongue Card: Denies: palpitations, edema, swelling of feet/ankles, orthopnea or leg pain with exertion Resp: Denies: pain on inspiration, change in phlegm color or hemoptysis GI: Denies: abdominal pain : Denies: flank pain Musc: Denies: back pain, extremity pain or extremity swelling Neuro: Denies: difficulty walking or confusion Psych: Denies: depression or panic attacks Endo: Denies: polyuria or polydipsia Medications/Allergies Home Medications Medication Instructions Recorded Confirmed Last Taken Type atorvastatin 80 mg PO BEDTIME 04/22/20 06/12/20 06/11/20 History carvedilol 3.125 mg PO BID 04/22/20 06/12/2004/22/20 History clonazepam 0.25 - 0.5 mg PO BID PRN 04/22/20 06/12/20 04/21/20 History clopidogrel 75 mg PO DAILY 04/22/20 06/12/20 04/22/20 History escitalopram oxalate 20 mg PO DAILY 04/22/20 06/12/20 04/22/20 History gabapentin 300 mg PO QID 04/22/20 06/12/20 04/22/20 History hydrocodone-acetaminophen 1 - 2 tab PO QID PRN MDD 8 TABS 04/22/20 06/12/20 06/11/20 History levothyroxine 125 mcg PO DAILY 04/22/20 06/12/20 04/22/20 History olmesartan 40 mg PO DAILY 04/22/20 06/12/20 04/22/20 History pantoprazole 40 mg PO BID 04/22/20 06/12/20 04/22/20 History tizanidine 4 mg PO TID PRN 04/22/20 06/12/20 Unknown History bisacodyl 10 mg PO DAILY PRN #30 tab 04/25/20 06/12/20 Unknown Rx docusate sodium 100 mg PO BID #60 cap 04/25/20 06/12/20 Unknown Rx sennosides [Senna Lax] 17.2 mg PO BEDTIME #30 tab 04/25/20 06/12/20 Unknown Rx Vitamin C 1 tab PO DAILY 06/12/20 06/12/20 Unknown History azithromycin See Rx Instructions .ROUTE .COMPLEX 06/12/20 06/12/20 06/12/20 History dexamethasone 6 mg PO BID 06/12/20 06/12/20 06/11/20 History ergocalciferol (vitamin D2) 50,000 unit PO Q7D 06/12/20 06/12/20 06/07/20 History [Vitamin D2] hydroxychloroquine 200 mg PO BID 06/12/20 06/12/20 06/12/20 History zinc 1 tab PO DAILY 06/12/20 06/12/20 Unknown History Allergies Allergy/AdvReac Type Severity Reaction Status Date / Time aspirin Allergy Unknown unknown Verified 05/23/20 10:50 rifampin Allergy Unknown unknown Verified 05/23/20 10:50 tizanidine Allergy Unknown unknown Verified 05/23/20 10:50 codeine Allergy Unknown Verified 05/23/20 10:50 diclofenac Allergy Unknown Verified 05/23/20 10:50 diflunisal Allergy Unknown Verified 05/23/20 10:50 flurbiprofen Allergy Unknown Verified 05/23/20 10:50 hydromorphone [From Dilaudid] Allergy Unknown Verified 05/23/20 10:50 ibuprofen Allergy Unknown Verified 05/23/20 10:50 indomethacin Allergy Unknown Verified 05/23/20 10:50 ketoprofen Allergy Unknown Verified 05/23/20 10:50 ketorolac Allergy Unknown Verified 05/23/20 10:50 meloxicam Allergy Unknown Verified 05/23/20 10:50 misoprostol Allergy Unknown Verified 05/23/20 10:50 morphine Allergy ADR-Itching Verified 05/23/20 10:50 nabumetone Allergy Unknown Verified 05/23/20 10:50 naproxen Allergy Unknown Verified 05/23/20 10:50 NSAIDS (Non-Steroidal Allergy Unknown Verified 05/23/20 10:50 Anti-Inflamma oxaprozin Allergy Unknown Verified 05/23/20 10:50 Penicillins Allergy Unknown Verified 05/23/20 10:50 piroxicam Allergy Unknown Verified 05/23/20 10:50 Sulfa (Sulfonamide Allergy Unknown Verified 05/23/20 10:50 Antibiotics) sulindac Allergy Unknown Verified 05/23/20 10:50 tolmetin Allergy Unknown Verified 05/23/20 10:50 Keflex Allergy Unknown unknown Uncoded 05/23/20 10:50 sulfa Allergy Unknown unknown Uncoded 05/23/20 10:50 PFSH Acute PFSH: Medical History Abnormal carotid duplex scan Atherosclerotic heart disease of [place] coronary artery without angina pectoris Benign essential HTN Carotid artery stenosis, asymptomatic Chronic anemia Chronic back pain Coronary artery disease Dyslipidemia Dyslipidemia (high LDL; low HDL) History of diabetes mellitus History of MRSA infection History of TIA (transient ischemic attack) Hypertension Obstructive sleep apnea Peripheral neuropathy Surgical History H/O tubal ligation History of bladder suspension procedure History of cholecystectomy Hx of elbow surgery Family History Mother Cancer Uterine Father CAD (coronary artery disease) Social History Smoking and tobacco status: former smoker Quit status (tobacco): has quit using tobacco Year quit tobacco: Prior to 1994 Alcohol intake: never Household members: other Details: . Lives with her girlfriend Vitals/I&O/Wt Last Vital Signs Temp 99.6 F 06/12/20 14:23 Pulse 80 06/12/20 16:07 Resp 18 06/12/20 16:07 BP 131/88 06/12/20 16:07 Pulse Ox 88 L 06/12/20 16:07 Weight last 48 hrs Weight 72.121 kg Physical Exam Const: COMMON NORMALS: patient oriented x3 HENMT: COMMON NORMALS: normocephalic, atraumatic, hearing grossly normal bilaterally and external ears normal HEAD & SCALP: normocephalic and atraumatic EXTERNAL EAR: Yes external ears normal Eye: COMMON NORMALS: no scleral icterus GENERAL EYE: appearance normal, both eyes and all related structures Chest: COMMONS NORMALS: normal inspection of the chest and normal palpation of entire chest wall CHEST: Yes Symmetrical chest wall rise Resp: COMMON NORMALS: normal respiratory effort, No retractions and No use of accessory muscles EFFORT & INSPECTION: Yes symmetric chest movement AUSCULTATION: crackles, rhonchi and wheezes Cardio: COMMON NORMALS: regular rate, regular rhythm, S1 normal heart sound present, S2 normal heart sound present, No gallops present (Cardio), No murmurs present (Cardio), No rub (Cardio) and Peripheral pulses 2+ throughout RATE: regular rate RHYTHM: regular rhythm HEART SOUNDS: S1 normal heart sound present and S2 normal heart sound present PERIPHERAL PULSES: Peripheral pulses 2+ throughout GI: COMMON NORMALS: Normal to inspection, nondistended, normoactive bowel sounds present, Soft to palpation, non-tender, No hepatosplenomegaly present and no masses AUSCULTATION: Yes normoactive bowel sounds PALPATION: Yes Soft to palpation and Yes No hepatosplenomegaly present RECTAL EXAM: deferred Extremity: COMMON NORMALS: no clubbing, cyanosis or edema and no pedal edema Neuro: COMMON NORMALS: patient oriented x3 Data : 06/12/20 14:20 06/12/20 14:20 Micro: Microbiology 06/12/20 14:25 Blood Culture - Preliminary Blood SPECIMEN COLLECTED 06/12/20 14:20 Blood Culture - Preliminary Blood SPECIMEN COLLECTED CXR: I personally reviewed and interpreted this imaging study as follows: My impression: Bilateral diffuse infiltrate in line with extensive airspace disease with underlying chronic lung change Radiologist's impression: The cardiac silhouette is normal in size. The mediastinal contours are normal. The pulmonary vascularity is hard to determine secondary to the degree of infiltrate. Chronic lung changes seen. There has been interval development of interstitial and patchy alveolar infiltrates within both lungs. There is no effusion or pneumothorax. No acute bony abnormality is seen. EKG 1: I personally reviewed and interpreted this EKG as follows: My Interpretation: Sinus rhythm with first-degree AV block Neuropsychology Service Director Interpretation: SINUS RHYTHM Compared to ECG 04/22/2020 17:33:32 First degree AV block no longer present A&P Assessment and plan (1) Pneumonia due to COVID-19 virus: came in with chief complaint of progressively worsening shortness of breath, cough ,headache, intermittent fever with chills, nausea vomiting, multiple episodes of watery diarrhea, loss of smell and taste started started last Thursday. She went to a nearby primary care clinic on Thursday when she was diagnosed with COVID pneumonia. She was sent to home on hydroxychloroquine, azithromycin, dexamethasone by her primary care physician. Which she was taking at home upon further worsening of the symptoms she decided to come to the ER. In ER she is currently requiring 5 L of oxygen through nasal cannula to maintain a saturation around 92%. Further work-up in the ER was done which has shown leukocytosis 20 t , serum fibrinogen 822 , d-dimer 2.7 , elevated AST ALT (monitor AST ALT as we are starting the patient on REM) , elevated serum ferritin ( 3629) , elevated LDH, ( 510) , interleukin-6: Pending, baseline troponin is 11, lactic acid is 2. ABG: pH: 7.51, PCO2: 28, PO2: 55 at FiO2 of 36%( p/f ) Continue remdesevir 200 mg loading dose followed by 100 mg once a day. Continue Decadron 8 mg IV daily Continue with nebs Will maintain a low threshold for therapeutic anticoagulation. We will continue to t trend d-dimer and other inflammatory markers. Will start patient on levofloxacin 750 mg oral daily. Status: Acute (2) Benign essential HTN: Continue carvedilol 3.125 mg p.o. every 12 hours Continue olmesartan 40 mg p.o. daily Status: Acute (3) COVID-19: See plan for assessment 1 Status: Acute (4) Leukocytosis: Will order panculture. Start her empirically on levofloxacin 750 mg oral daily Status: Acute (5) Chronic anemia: Monitor H&H Status: Acute (6) Hypertension: Status: Acute (7) Dyslipidemia: Continue atorvastatin 80 mg oral daily Status: Acute (8) Obstructive sleep apnea: Encourage use of BiPAP at night Status: Acute (9) Coronary artery disease: Continue Plavix 75 mg oral daily Status: Acute (10) Hypothyroidism: Continue levothyroxine 125 mcg daily Status: Acute Additional A&P Information Code status: Full code DVT prophylax: Lovenox Attestations Medical Necessity Statement*: Patient needs to be in the hospital for management of COVID pneumonia. She will need more than 2 nights of hospital stay. Coding Level of Care Code Acute [employer] Worker for [facility] Fwd Exam Comprehensive Diagnoses Pneumonia due to COVID-19 virus U07.1; J12.89 Benign essential HTN I10 COVID-19 U07.1 Leukocytosis D72.829 Chronic anemia D64.9 Hypertension I10 Dyslipidemia E78.5 Obstructive sleep apnea G47.33 Coronary artery disease I25.10 Hypothyroidism E03.9
[2020-06-12 17:03] LABS: Ferritin 3629 ng/mL (15-150)
[2020-06-12 17:20] LABS: C Reactive Protein 146.3 mg/L (0.0-4.9)
[2020-06-12] MEDS: pantoprazole DR 40 mg Tablet PO (17:34)
[2020-06-12] MEDS: ondansetron 2 mg/ML SDV 2 mL 4 MG IVP (17:34)
[2020-06-12] MEDS: enoxaparin 40 mg/0.4 mL Syringe SUBCUT (17:34)
[2020-06-12] MEDS: docusate sodium 100 mg Capsule PO (18:47)
[2020-06-12] MEDS: benzonatate 100 mg Capsule PO (18:49)
[2020-06-12] MEDS: dexamethasone 4 mg/mL INJ 8 MG IVP ×2 (19:24→21:34)
[2020-06-12] MEDS: carvedilol 3.125 mg Tablet PO (19:24)
[2020-06-12] MEDS: vancomycin 1,000 MG in sodium chloride 0.9% 250 ML 250 MG IV (21:33)
[2020-06-12] MEDS: doxycycline 100 MG in sodium chloride 0.9% (plus) 100 ML IV (21:33)
[2020-06-12] MEDS: atorvastatin 40 mg Tablet 80 MG PO (21:33)
[2020-06-12] MEDS: gabapentin 300 mg Capsule PO (21:35)
[2020-06-12] MEDS: enoxaparin 100 mg/mL Syringe 70 MG SUBCUT (21:38)
[2020-06-12] MEDS: CLONazepam 0.5 mg Tablet PO (21:45)
[2020-06-13] VITALS (34 sets, daily range): BP systolic 90–164; BP diastolic 50–93; PULSE 50–89; RESP 15–36; TEMP 36.5–36.9; O2SAT 85–97
--- NOTE | 2020-06-13 01:53 | PC.NURSE ---
Patient resting comfortably in bed at this time.
[2020-06-13 05:36] LABS: Basophils % 0.3 %; Hematocrit 36.2 % (37.0-47.0); Hemoglobin 11.5 g/dL (11.5-15.3); Lymphocytes # 0.8 10^3/uL (0.8-4.8); Lymphocytes % 4.9 %; Mean Corpuscular HGB Conc 31.8 g/dL (30.0-36.0); Mean Corpuscular Hemoglobin 27.3 pg (28.0-34.0); Mean Corpuscular Volume 85.8 fL (81-99); Mean Platelet Volume 9.7 fL (7.4-10.4); Monocytes # 0.4 10^3/uL (0.2-0.9); Monocytes % 2.7 %; Neutrophils # 13.65 10^3/uL (1.8-7.7); Neutrophils % 89.6 %; Nucleated Red Blood Cells % 0 %; Platelet Count 299 10^3/cmm (130-400); Red Blood Count 4.22 10^6/uL (4.1-5.3); Red Cell Distribution Width 14.4 % (12.1-15.1); White Blood Count 15.2 10^3/uL (4.0-10.0)
[2020-06-13 05:47] LABS: Alanine Aminotransferase 162 U/L (0-33); Albumin Level 3.1 g/dL (3.5-5.2); Alkaline Phosphatase 190 IU/L (35-105); Aspartate Amino Transferase 111 U/L (0-32); Blood Urea Nitrogen 18 mg/dL (8-23); Calcium 8.2 mg/dL (8.5-10.5); Carbon Dioxide 22 mmol/L (22-29); Chloride 98 mmol/L (98-107); Globulin 3.8 g/dL (1.3-4.6); Glomerular Filtration Rate 123.1 mL/min (90-130); Glucose 169 mg/dL (65-115); Osmolality Calculated 274 mOsm/kg (285-295); Phosphorus 4.3 mg/dL (2.5-4.5); Sodium 132 mmol/L (136-145); Total Bilirubin 0.6 mg/dL (0.15-1.2); Total Protein 6.9 g/dL (6.6-8.7)
[2020-06-13] MEDS: doxycycline 100 MG in sodium chloride 0.9% (plus) 100 ML IV (07:10)
[2020-06-13] MEDS: enoxaparin 100 mg/mL Syringe 70 MG SUBCUT (07:10)
[2020-06-13] MEDS: acetaminophen 325 mg Tablet 650 MG PO (07:55)
[2020-06-13 07:59] LABS: Troponin(5th) Baseline 8 ng/L (0-10)
[2020-06-13 08:13] LABS: Troponin 5 2HR 7.52 ng/L (0-10)
[2020-06-13 08:19] LABS: Troponin 5 2HR Delta -0.48 ABS# (0-10)
[2020-06-13] MEDS: vancomycin 1,000 MG in sodium chloride 0.9% 250 ML 250 MG IV ×2 (08:27→20:33)
[2020-06-13] MEDS: levothyroxine 125 mcg Tablet PO (08:37)
[2020-06-13] MEDS: pantoprazole DR 40 mg Tablet PO ×2 (08:37→17:39)
[2020-06-13] MEDS: escitalopram 10 mg Tablet 20 MG PO (08:38)
[2020-06-13] MEDS: carvedilol 3.125 mg Tablet PO ×2 (08:39→17:39)
[2020-06-13] MEDS: ipratropium-albuterol 3 mL Neb INHALATION (09:00)
[2020-06-13] MEDS: ascorbic acid 500 mg Tablet PO (09:05)
[2020-06-13] MEDS: zinc gluconate 50 mg Tablet PO (09:06)
[2020-06-13 10:50] LABS: Troponin 5 6HR 8.06 ng/L (0-10); Troponin 5 6HR Delta 0.06 ng/L (0-12)
[2020-06-13] MEDS: dexamethasone 4 mg/mL INJ 6 MG IVP (12:25)
[2020-06-13] MEDS: gabapentin 300 mg Capsule PO ×3 (12:25→20:33)
--- NOTE | 2020-06-13 15:59 | PM.PN ---
Subjective Subjective: Interval history: History and physical was reviewed. Patient reports she feels better than yesterday. Still coughing and still short of breath. Able to eat some now. Medications: Reviewed: Yes Vitals/I&O/Wt Last Vital Signs Temp 97.8 F 06/13/20 08:00 Pulse 87 06/13/20 12:15 Resp 16 06/13/20 12:15 BP 97/63 06/13/20 12:00 Pulse Ox 91 06/13/20 12:15 06/13/20 06/13/20 06/13/20 06:59 14:59 22:59 Intake Total 100 / 650 1000 / 1000 Balance 100 / 650 1000 / 1000 Weight last 48 hrs Weight 75.342 kg Weight 72.121 kg Physical Exam Narrative: EXAM NARRATIVE: General exam is no apparent distress Cardiovascular regular rate and rhythm without murmur Lungs clear but with diminished breath sounds bilaterally Abdomen is soft nontender with positive bowel sounds Extremities no cyanosis clubbing or edema Data : 06/13/20 04:15 06/13/20 04:15 Micro: Microbiology 06/12/20 14:25 Blood Culture - Preliminary Blood NEGATIVE TO DATE 06/12/20 14:20 Blood Culture - Preliminary Blood NEGATIVE TO DATE A&P Assessment and plan (1) Pneumonia due to COVID-19 virus: Remdesivir has been initiated Continue dexamethasone She currently is requiring 70% FiO2, heated high flow White blood cell count has decreased. D-dimer significantly elevated on admission. Will repeat tomorrow along with other inflammatory markers Hyponatremia is improved Transaminitis has improved Pro calcitonin level was not elevated Chest x-ray did demonstrate interstitial infiltrates consistent with COVID/bilateral pneumonia She was initially placed on full dose anticoagulation secondary to significantly elevated d-dimer after risks and benefits were discussed. I have converted her to Eliquis today as no current surgical procedures anticipated. She did have some desaturation happened this morning so nebulized treatments were ordered which she responded to. As there was concern of bacterial pneumonia on admission as well she was placed on vancomycin and Primaxin. I will check an MRSA PCR and if negative consider discontinuing vancomycin. Status: Acute (2) Benign essential HTN: Continue carvedilol 3.125 mg p.o. every 12 hours Continue olmesartan 40 mg p.o. daily Status: Acute (3) COVID-19: See above Status: Acute (4) Leukocytosis: Await cultures. Continue vancomycin, Primaxin currently. See comments under pneumonia. Status: Acute (5) Chronic anemia: Serial CBC Status: Acute (6) Hypertension: Continue patient's carvedilol, ARB Status: Acute (7) Dyslipidemia: Continue atorvastatin 80 mg oral daily Status: Acute (8) Obstructive sleep apnea: Encourage use of BiPAP at night Status: Acute (9) Coronary artery disease: Continue Plavix 75 mg oral daily Status: Acute (10) Hypothyroidism: Continue levothyroxine 125 mcg daily Status: Acute Additional A&P Information Full code Full dose anticoagulation with Eliquis currently Attestations Medical Necessity Statement*: Needs continued hospitalization, for supportive care secondary to COVID pneumonia with adjunct treatment of dexamethasone and remdisivir Coding Level of Care Code Acute 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
--- NOTE | 2020-06-13 16:37 | PC.NURSE ---
Prone patient patient ambulated to bedside commode. patient became short of breath and oxygen decreased into the low 80s. Per Dr. Whipple to prone patient as much as she can tolerate. prior to proning, patient was on heated high flow on 40L/75%FIO2 with oxygen saturation 85%. Shortly after patient was placed in prone position, oxygen saturation increased to 95%. will continue to monitor.
[2020-06-13] MEDS: apixaban 5 mg Tablet PO (17:39)
[2020-06-13] MEDS: CLONazepam 0.5 mg Tablet PO (20:33)
[2020-06-13] MEDS: atorvastatin 40 mg Tablet 80 MG PO (20:33)
[2020-06-14] VITALS (57 sets, daily range): BP systolic 97–153; BP diastolic 59–89; PULSE 48–82; RESP 14–36; TEMP 36.1–36.9; O2SAT 85–99
--- NOTE | 2020-06-14 06:24 | PC.NURSE ---
Patient proned for several hours during shift, O2 sats >95%, able to decrease FIO2 requirements. At approx. 0610, patient's O2 sat's reading mid-80%, FIO2 increased to 90%, advised patient to prone again, patient asked to wait awhile before proning.
[2020-06-14 07:56] LABS: Basophils # 0.1 10^3/uL (0.0-0.1); Basophils % 0.5 %; Hematocrit 37.7 % (37.0-47.0); Hemoglobin 11.8 g/dL (11.5-15.3); Lymphocytes # 1.3 10^3/uL (0.8-4.8); Lymphocytes % 5.8 %; Mean Corpuscular HGB Conc 31.3 g/dL (30.0-36.0); Mean Corpuscular Hemoglobin 27.8 pg (28.0-34.0); Mean Corpuscular Volume 88.7 fL (81-99); Monocytes % 4.6 %; Neutrophils # 19.14 10^3/uL (1.8-7.7); Neutrophils % 85.8 %; Nucleated Red Blood Cells % 0 %; Platelet Count 377 10^3/cmm (130-400); Red Blood Count 4.25 10^6/uL (4.1-5.3); Red Cell Distribution Width 14.5 % (12.1-15.1); White Blood Count 22.3 10^3/uL (4.0-10.0)
[2020-06-14 08:09] LABS: D Dimer 1.76 ug/mIFEU (0-0.59)
[2020-06-14] MEDS: apixaban 5 mg Tablet PO ×2 (08:15→17:57)
[2020-06-14] MEDS: escitalopram 10 mg Tablet 20 MG PO (08:15)
[2020-06-14] MEDS: carvedilol 3.125 mg Tablet PO ×2 (08:15→17:57)
[2020-06-14] MEDS: ergocalciferol (vitamin D2) 50,000 Unit Capsule 50000 UNIT PO (08:15)
[2020-06-14] MEDS: vancomycin 1,000 MG in sodium chloride 0.9% 250 ML 250 MG IV ×2 (08:15→20:02)
[2020-06-14] MEDS: ascorbic acid 500 mg Tablet PO (08:15)
[2020-06-14] MEDS: gabapentin 300 mg Capsule PO ×4 (08:15→20:02)
[2020-06-14] MEDS: levothyroxine 125 mcg Tablet PO (08:16)
[2020-06-14] MEDS: zinc gluconate 50 mg Tablet PO (08:16)
[2020-06-14] MEDS: pantoprazole DR 40 mg Tablet PO ×2 (08:16→17:57)
[2020-06-14] MEDS: losartan 50 mg Tablet 100 MG PO (08:16)
[2020-06-14 08:17] LABS: C Reactive Protein 100.7 mg/L (0.0-4.9)
[2020-06-14 08:18] LABS: Alanine Aminotransferase 145 U/L (0-33); Albumin Level 2.7 g/dL (3.5-5.2); Alkaline Phosphatase 190 IU/L (35-105); Aspartate Amino Transferase 87 U/L (0-32); Blood Urea Nitrogen 18 mg/dL (8-23); Calcium 8.4 mg/dL (8.5-10.5); Carbon Dioxide 20 mmol/L (22-29); Chloride 99 mmol/L (98-107); Creatinine Clr Calc Pharmacy 67.6056; Globulin 4.2 g/dL (1.3-4.6); Glomerular Filtration Rate 123.1 mL/min (90-130); Glucose 97 mg/dL (65-115); Magnesium 2.4 mg/dL (1.7-2.3); Osmolality Calculated 280 mOsm/kg (285-295); Phosphorus 3.2 mg/dL (2.5-4.5); Sodium 134 mmol/L (136-145); Total Bilirubin 0.3 mg/dL (0.15-1.2); Total Protein 6.9 g/dL (6.6-8.7); Vancomycin Trough 20.5 ug/mL (10-15)
[2020-06-14 08:20] LABS: Anion Gap 18.8 (5-19); Potassium 3.8 mmol/L (3.5-5.1)
[2020-06-14 08:34] LABS: Ferritin 5035 ng/mL (15-150)
[2020-06-14] MEDS: dexamethasone 4 mg/mL INJ 6 MG IVP (11:42)
--- NOTE | 2020-06-14 11:56 | PM.PN ---
Subjective Subjective: Interval history: Steffanie reports she feels about the same as yesterday. She has had some diarrhea. She does not feel like eating much but is drinking. Short of breath with any activity. Medications: Reviewed: Yes Vitals/I&O/Wt Last Vital Signs Temp 98.5 F 06/14/20 07:30 Pulse 77 06/14/20 11:30 Resp 18 06/14/20 11:30 BP 109/62 06/14/20 08:00 Pulse Ox 93 06/14/20 11:30 06/13/20 06/14/20 06/14/20 22:59 06:59 14:59 Intake Total 720 / 1720 100 / 1820 Output Total Balance 719 / 1719 100 / 1819 Weight last 48 hrs Weight 74.843 kg Weight 75.342 kg Weight 72.121 kg Physical Exam Narrative: EXAM NARRATIVE: General exam is no apparent distress. Currently on 75% FiO2, 35 L flow on high flow nasal cannula. Cardiovascular regular rate and rhythm without murmur Lungs clear but with diminished breath sounds bilaterally Abdomen is soft nontender with positive bowel sounds Extremities no cyanosis clubbing or edema Data : 06/14/20 04:40 06/14/20 04:40 Micro: Microbiology 06/12/20 14:25 Blood Culture - Preliminary Blood NEGATIVE TO DATE 06/12/20 14:20 Blood Culture - Preliminary Blood NEGATIVE TO DATE A&P Assessment and plan (1) Pneumonia due to COVID-19 virus: Has severe illness requiring high flow oxygen. Continue Remdesivir Continue dexamethasone Wean oxygen as tolerated Prone is much as possible Note that d-dimer has decreased. She was placed on therapeutic anticoagulation in the form of Eliquis. D-dimer significantly elevated on admission. Will repeat tomorrow along with other inflammatory markers Hyponatremia still present but improved. Transaminitis improving. Pro calcitonin level was not elevated Chest x-ray did demonstrate interstitial infiltrates consistent with COVID/bilateral pneumonia As there was concern of bacterial pneumonia on admission as well she was placed on vancomycin and Primaxin. I will check an MRSA PCR and if negative consider discontinuing vancomycin. Status: Acute (2) Benign essential HTN: Continue carvedilol 3.125 mg p.o. every 12 hours Continue olmesartan 40 mg p.o. daily Status: Acute (3) COVID-19: See above Status: Acute (4) Leukocytosis: Await cultures. Continue vancomycin, Primaxin currently. See comments under pneumonia. Status: Acute (5) Chronic anemia: Hemoglobin stable Status: Acute (6) Hypertension: Continue patient's carvedilol, ARB Status: Acute (7) Dyslipidemia: Continue atorvastatin 80 mg oral daily Status: Acute (8) Obstructive sleep apnea: Encourage use of BiPAP at night Status: Acute (9) Coronary artery disease: Continue Plavix 75 mg oral daily Status: Acute (10) Hypothyroidism: Continue levothyroxine 125 mcg daily Status: Acute Additional A&P Information Full code Full dose anticoagulation with Eliquis currently Attestations Medical Necessity Statement*: Needs continued hospitalization for supportive care and treatment of Covid 19 pneumonia requiring high flow oxygen Coding Level of Care Code Acute 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
[2020-06-14] MEDS: oxyCODONE-APAP 5-325 mg Tablet 1 TAB PO (20:02)
[2020-06-14] MEDS: atorvastatin 40 mg Tablet 80 MG PO (20:02)
[2020-06-15] VITALS (55 sets, daily range): BP systolic 79–122; BP diastolic 42–79; PULSE 61–89; RESP 18–41; TEMP 36.2–36.8; O2SAT 82–99
[2020-06-15] MEDS: oxyCODONE-APAP 5-325 mg Tablet 1 TAB PO (01:18)
--- NOTE | 2020-06-15 01:34 | PC.NURSE ---
Espinal placed for accurate I&O's, less oxygen burden from exertion to BSC, patient in agreement, placed with sterile technique, good urine return in espinal.
[2020-06-15] MEDS: HYDROcodone-acetaminophen 5-325 mg Tablet 1 TAB PO ×2 (04:30→20:58)
[2020-06-15 05:14] LABS: Basophils % 0.3 %; Eosinophils % 0.1 %; Hematocrit 35.5 % (37.0-47.0); Hemoglobin 11.3 g/dL (11.5-15.3); Lymphocytes # 0.8 10^3/uL (0.8-4.8); Lymphocytes % 4.9 %; Mean Corpuscular HGB Conc 31.8 g/dL (30.0-36.0); Mean Corpuscular Hemoglobin 27.5 pg (28.0-34.0); Mean Corpuscular Volume 86.4 fL (81-99); Mean Platelet Volume 9.9 fL (7.4-10.4); Monocytes # 0.5 10^3/uL (0.2-0.9); Neutrophils # 14.12 10^3/uL (1.8-7.7); Neutrophils % 89.4 %; Nucleated Red Blood Cells % 0 %; Platelet Count 301 10^3/cmm (130-400); Red Blood Count 4.11 10^6/uL (4.1-5.3); Red Cell Distribution Width 14.3 % (12.1-15.1); White Blood Count 15.8 10^3/uL (4.0-10.0)
[2020-06-15 05:42] LABS: Alanine Aminotransferase 87 U/L (0-33); Albumin Level 2.6 g/dL (3.5-5.2); Alkaline Phosphatase 137 IU/L (35-105); Aspartate Amino Transferase 50 U/L (0-32); Blood Urea Nitrogen 17 mg/dL (8-23); Calcium 7.5 mg/dL (8.5-10.5); Carbon Dioxide 22 mmol/L (22-29); Chloride 101 mmol/L (98-107); Creatinine Clr Calc Pharmacy 67.6056; Globulin 2.7 g/dL (1.3-4.6); Glomerular Filtration Rate 159.2 mL/min (90-130); Glucose 77 mg/dL (65-115); Osmolality Calculated 278 mOsm/kg (285-295); Phosphorus 3.5 mg/dL (2.5-4.5); Sodium 134 mmol/L (136-145); Total Bilirubin 0.4 mg/dL (0.15-1.2); Total Protein 5.3 g/dL (6.6-8.7)
[2020-06-15] MEDS: vancomycin 1,000 MG in sodium chloride 0.9% 250 ML 250 MG IV ×2 (08:01→20:57)
[2020-06-15] MEDS: apixaban 5 mg Tablet PO ×2 (08:01→17:26)
[2020-06-15] MEDS: ascorbic acid 500 mg Tablet PO (08:01)
[2020-06-15] MEDS: carvedilol 3.125 mg Tablet PO ×2 (08:01→17:26)
[2020-06-15] MEDS: escitalopram 10 mg Tablet 20 MG PO (08:01)
[2020-06-15] MEDS: levothyroxine 125 mcg Tablet PO (08:02)
[2020-06-15] MEDS: pantoprazole DR 40 mg Tablet PO ×2 (08:02→17:26)
[2020-06-15] MEDS: zinc gluconate 50 mg Tablet PO (08:02)
[2020-06-15] MEDS: gabapentin 300 mg Capsule PO ×3 (08:02→20:58)
--- NOTE | 2020-06-15 09:22 | XRR_ITS ---
PROCEDURE INFORMATION: Exam: XR Chest, 1 View Exam date and time: 06/15/2020 10:47 AM Age: 69 years old Clinical indication: Other: Hypoxia; Additional info: Covid pneumonia, worsening hypoxia TECHNIQUE: Imaging protocol: XR of the chest Views: 1 view. COMPARISON: CR XR chest 1V portable [id number] 06/12/2020 2:48 PM FINDINGS: Lungs: Alveolar airspace consolidation within the right upper lobe and right lung base and to a lesser degree the right mid lung. Patchy alveolar airspace consolidation left upper lobe and left lung base. Pleural space: Unremarkable. No pleural effusion. No pneumothorax. Heart/Mediastinum: Cardiomegaly. Bones/joints: Unremarkable. XR/XR chest 1V portable [id number] IMPRESSION: Alveolar airspace consolidation within the right upper lobe and right lung base and to a lesser degree the right mid lung. Patchy alveolar airspace consolidation left upper lobe and left lung base. Progressive.
[2020-06-15 10:00] LABS: ABG PCO2 31.9 mmHg (35-45); ABG PH Result 7.45 (7.35-7.45); Alveolar-Arterial Oxygen Gradi 73.2 mmHg (5-10); Arterial Blood Gas Hematocrit 37.6 % (37-47); Base Excess ABG -0.9 mmol/L (-2.0-2.0); Blood Gas Allen Test Pos; Blood Gas Sample Site Not specified; Blood Gas Sample Type Arterial; Carboxyhemoglobin 0.8 %THgb (0.4-20.1); HCO3 ABG 22.3 mmol/L (22-26); HGB O2 Sat 78.6 % (95-100); Ionized Calcium Level - ABG 1.1 mmol/L (1.1-1.4); Methemoglobin 0.8 % (0.4-1.5); Oxygen Saturation ABG 79.8; PO2 ABG 41.8 mmHg (80.0-100.0); Potassium Level - ABG 3.4 mmol/L (3.5-5.0); Total Hemoglobin 12.3 g/dL (12-16)
[2020-06-15 10:05] LABS: Oxygen Device HIGH FLOW
[2020-06-15] MEDS: dexamethasone 4 mg/mL INJ 6 MG IVP (12:45)
--- NOTE | 2020-06-15 12:49 | P.DS_ITS ---
Discharge Providers Date of Admission: 06/12/20 16:02 Date of Discharge: June 15, 2020 Attending Provider at Admission: Lucas Bustillos MD Attending Provider at Discharge: Efraín Whipple MD Primary Care Provider: Pat Tovar APN Diagnoses at Discharge Discharge Diagnosis (1) Pneumonia due to COVID-19 virus: Status: Acute (2) Benign essential HTN: Status: Acute (3) COVID-19: Status: Acute (4) Leukocytosis: Status: Acute (5) Chronic anemia: Status: Acute (6) Hypertension: Status: Acute (7) Dyslipidemia: Status: Acute (8) Obstructive sleep apnea: Status: Acute (9) Coronary artery disease: Status: Acute (10) Hypothyroidism: Status: Acute Reason for Visit Reason for Visit: COVID + Hospital Course Hospital Course: Steffanie is a 69-year-old white female admitted on June 11 with COVID pneumonia. Secondary to concern of bacterial coinfection she was placed on Primaxin and vancomycin. Inflammatory markers were elevated. Quickly she required 60% high flow nasal cannula to keep her oxygen adequate. While in the hospital she received remdesivir as well as dexamethasone. She received anticoagulation with full dose Lovenox it was converted to Eliquis secondary to a markedly elevated d-dimer level of 2.73 after risks and benefits were discu ssed. Despite these interventions she required more oxygen each subsequent day. By June 15 x-ray showed progressive infiltrates and abnormalities. She required transition to BiPAP 90% FiO2 to keep her saturation greater than 90%. After consultation with the family the decision was made to transfer to a higher level of care where plasma transfusion could be available, and staff experienced and probing the patient should she require intubation which is likely. ABG prior to BiPAP, on 90% FiO2 by high flow nasal cannula showed a pH of 7.45, PCO2 of 32, PO2 of 42 on 40 L flow. Physical Exam Narrative: EXAM NARRATIVE: General exam, conversant, but tachypneic Cardiovascular regular rate and rhythm Some dry crackles noted bilaterally. No wheezing Abdomen is soft with positive bowel sounds Extremities no edema Urinary Catheter Management^: Julio: Cath Placed During This Visit: yes Reason for Continuing Indwelling Catheter: Accurate Measurement of Urinary Output in Critically Ill Patients Urinary Catheter Date of Insertion: 06/15/20 Urinary Catheter Time of Insertion: 00:05 Discharge Data Data Completed and Pending: Completed Studies During Hospitalization Category Date Time Status XR chest 1V iván ble [id number] Routine Exams 06/15/20 09:22 Completed XR chest 1V iván ble [id number] Stat Exams 06/12/20 14:37 Completed Pending at discharge Category Date Time Status Blood Culture Sta t Lab 06/12/20 14:25 Results Interleukin 6 (IL -6) Serum Stat Lab 06/12/20 14:[address] at Lab 06/13/20 07:15 Results Urine Culture Sta t Lab 06/15/20 00:59 Received Labs from last 24 hours 06/15/20 06/15/20 06/15/20 09:47 04:15 04:15 WBC 15.8 H RBC 4.11 Hgb 11.3 L Hct 35.5 L MCV 86.4 MCH 27.5 L MCHC 31.8 RDW 14.3 Plt Count 301 MPV 9.9 Neut % (Auto) 89.4 Lymph % (Auto) 4.9 [place] % (Auto) 3.0 Eos % (Auto) 0.1 Baso % (Auto) 0.3 Neut # (Auto) 14.12 H Lymph # (Auto) 0.8 [place] # (Auto) 0.5 Eos # (Auto) 0.0 Baso # (Auto) 0.0 Nucleated RBC % (a uto) 0 Nucleated RBCs # 0.0 Specimen Type Arterial Sample Site Not specified ABG pH 7.45 ABG pCO2 31.9 L ABG pO2 41.8 L ABG HCO3 22.3 ABG O2 Saturation 79.8 ABG Base Excess -0.9 Wilian Test Pos A-a O2 Gradient 73.2 H Hematocrit 37.6 Hgb O2 Saturation 78.6 L Carboxyhemoglobin 0.8 Methemoglobin 0.8 Total Hemoglobin 12.3 Ionized Calcium 1.1 O2 Delivery Device High flow O2 Liters/Min 40.0 FiO2 90.0 Insurance Analyst ID Craje Sodium 133.0 134 L Potassium 3.4 L 4.0 Chloride 101 Carbon Dioxide 22 Anion Gap 15.0 BUN 17 Creatinine 0.4 L GFR Calculation 159.2 H Glucose 88.0 77 Calculated Osmolal ity 278 L Calcium 7.5 L Phosphorus 3.5 Magnesium 2.0 Total Bilirubin 0.4 AST 50 H ALT 87 H Alkaline Phosphata se 137 H Total Protein 5.3 L D Albumin 2.6 L Globulin 2.7 Vitals: Last Vital Signs Temp 98.0 F 06/15/20 07:00 Pulse 81 06/15/20 10:53 Resp 18 06/15/20 09:56 BP 97/59 06/15/20 08:00 Pulse Ox 94 06/15/20 10:53 Discharge Plan Discharge Patient Disposition: Xfer Short-Term Hosp Condition: Fair Prescriptions: No Action azithromycin 250 mg tablet See Rx Instructions .ROUTE .COMPLEX RF: 0 dexamethasone 2 mg tablet 6 mg PO BID RF: 0 Vitamin D2 1,250 mcg (50,000 unit) capsule 50,000 unit PO Q7D RF: 0 hydroxychloroquine 200 mg tablet 200 mg PO BID RF: 0 Vitamin C 1 tab PO DAILY RF: 0 zinc 1 tab PO DAILY RF: 0 atorvastatin 80 mg tablet 80 mg PO BEDTIME RF: 0 tizanidine 4 mg tablet 4 mg PO TID PRN (Reason: Muscle Spasm) RF: 0 clonazepam 0.5 mg tablet 0.25 - 0.5 mg PO BID PRN (Reason: UNKNOWN) RF: 0 clopidogrel 75 mg tablet 75 mg PO DAILY RF: 0 hydrocodone-acetaminophen 10-325 mg tablet 1 - 2 tab PO QID MDD 8 TABS PRN (Reason: Pain) RF: 0 carvedilol 3.125 mg tablet 3.125 mg PO BID RF: 0 pantoprazole 40 mg tablet,delayed release (DR/EC) 40 mg PO BID RF: 0 levothyroxine 125 mcg tablet 125 mcg PO DAILY RF: 0 gabapentin 300 mg capsule 300 mg PO QID RF: 0 olmesartan 40 mg tablet 40 mg PO DAILY RF: 0 escitalopram oxalate 20 mg tablet 20 mg PO DAILY RF: 0 sennosides [Senna Lax] 8.6 mg Tablet 17.2 mg PO BEDTIME Qty: 30 RF: 0 docusate sodium 100 mg Capsule 100 mg PO BID Qty: 60 RF: 0 bisacodyl 5 mg Tablet,Delayed Release (Dr/Ec) 10 mg PO DAILY PRN (Reason: Constipation) Qty: 30 RF: 0 Discharge Orders: Discharge Order (Routine); Ordered 06/15/20 Ordered By: Efraín Whipple Referrals: Tovar,Pat, LOCUM TENENS [Primary Care Provider] - Activity Restrictions/Additional Instructions: Transfer to [facility] Discharge Attestations Time Spent in Discharge Care*: critical care time (40 minutes of critical care time, reviewing ABG, x-ray, visitation with patient family examination etc. in this patient with worsening Covid 19 pneumonia requiring BiPAP.) Quality Metrics Clinical Quality Measures During this hospital stay, did patient experience: None Coding Level of Care Code Acute Marking Devices Assembler for Chg Fwd Diagnoses Pneumonia due to COVID-19 virus U07.1; J12.89 Benign essential HTN I10 COVID-19 U07.1 Leukocytosis D72.829 Chronic anemia D64.9 Hypertension I10 Dyslipidemia E78.5 Obstructive sleep apnea G47.33 Coronary artery disease I25.10 Hypothyroidism E03.9
[2020-06-15 21:52] LABS: Interleukin 6 (IL-6) Serum 117.94 pg/mL (<5.00)
[2020-06-16] VITALS: BP 135/79; PULSE 76; RESP 26; TEMP 36.4; O2SAT 92
--- NOTE | 2020-06-16 00:18 | PC.NURSE ---
Report called to Charisma Malin RN, at [facility].
--- NOTE | 2020-06-16 00:45 | PC.NURSE ---
Air evac informed RN that they are unable to take patient while on bipap; high flow nasal cannula and non-rebreather placed on patient, patient O2 sats >92%. Informed Air evac of newest information, Air evac apparently declined to take patient while on 30L O2. Patient changed to 15L NRB, tolerating well, O2 sats >91%, tolerating well.
[2020-06-16 02:00] VITALS: PULSE 72; RESP 24; O2SAT 93
[2020-06-16 02:30] VITALS: BP 121/65; PULSE 65; RESP 25; TEMP 37; O2SAT 96
--- NOTE | 2020-06-16 02:41 | PC.NURSE ---
Air evac transported patient off unit, report given to RN, patient stable on NRB at 15L/min at time of transfer. House sup made aware.
--- NOTE | 2020-06-16 08:49 | PC.NURSE ---
Daughter called Patient daughter called to get information on patient. nurse updated that patient was transferred to [facility] early this morning and phone number to [facility] given to family member. Talya was family member who was updated.
--- NOTE | 2020-06-19 10:26 | PC.SOCIAL ---
This literary writer spoke with the patient Steffanie Angelo on the phone [phone]. The patient is still currently a patient at [facility] in [place], [place]. [place] [facility] [place] due to the need for higher level of care. The patient stated that she was feeling much better and was ready to go home and asked if I knew if she would be discharging today. I explained the discharge process from this writers perspective and informed her that it would be up to the doctor to decide if she was well enough to discharge. I did inform her that she could speak with the social service department as they may know more about her discharge. This literary writer went over what to look for once discharged, the signs and symptoms that would warrant a call to the primary care doctor or a visit to the emergency room. I explained how trouble breathing, shortness of breath, chest pain or pressure, lips and face being blue, or a fever of 104 or higher are all reasons to take action. She stated that she understood. I also informed her that she should be set up with a follow up visit likly 24-48 hours after her discharge and that this visit may be a virtual visit called a telehealth visit. I explained in detail what telehealth is. I asked if she had a phone or another device at home that would have the capability do do a teleheath visit. She stated that her phone sometimes works. I informed her that it would be best to let her PCP know this as they may have to set up a different type of visit. This literary writer also went over a few more things in preparation for if she had to be out in public due to appointments. We went over the proper way to wash hands, cover face, and social distancing. I spoke with her about how she most likely caught Covid 19 and how she too could possibly spread it if not cautious. I explained the importance of not touching her face, turning her head when coughing or sneezing. She stated that she understood. this literary writer also educated the patient on ways to keep her immune system healthy by eating well, resting and avoiding stress as much a possible. The last thing we went over was plasma donation. The patient seemed very interested in the idea. She would like for me to send information in the mail. She stated that she received plasma while in the hospital and felt that it helped her, so she would like to likely do the same.
== END 2020-06-16 02:30 | disposition short-term general hospital (02) | DRG 177 ==
LOC: ER 16:01 → ICU 17:37
PROVIDERS: Admitting Provider Internal Medicine; Emergency Provider Emergency Medicine; PCP Nurse Practitioner Family; Visit Provider Internal Medicine
DX: U07.1 COVID-19 (principal); J12.89 Other viral pneumonia; I10 Essential (primary) hypertension; I25.10 Atherosclerotic heart disease of native coronary artery without angina pectoris; Z95.5 Presence of coronary angioplasty implant and graft; E03.9 Hypothyroidism, unspecified; J45.909 Unspecified asthma, uncomplicated; I44.0 Atrioventricular block, first degree; I65.29 Occlusion and stenosis of unspecified carotid artery; D64.9 Anemia, unspecified; G89.29 Other chronic pain; M54.9 Dorsalgia, unspecified; E78.5 Hyperlipidemia, unspecified; E11.42 Type 2 diabetes mellitus with diabetic polyneuropathy; Z86.14 Personal history of Methicillin resistant Staphylococcus aureus infection; Z86.73 Personal history of transient ischemic attack (TIA), and cerebral infarction without residual deficits; G47.33 Obstructive sleep apnea (adult) (pediatric); Z87.891 Personal history of nicotine dependence
CPT/HCPCS: 12345; 36415; 36600; 51702; 71045; 80051; 80053; 80202; 82550; 82728; 82803; 82810; 83520; 83605; 83615; 83735; 83880; 83986; 84100; 84145; 84484; 85025; 85378; 85384; 85610; 85730; 86140; 87040; 87070; 87086; 87449; 87641; 93005; 94640; 94660; 96372; 96375; 99283; J0743; J1100; J1650; J2405; J3370; J3490; J7050